=== PATIENT | male | born 1945 | race Caucasian/White ===

== ENCOUNTER 2018-11-26 22:31 | Emergency (ER) | payer MEDICARE, OTHER ==
--- NOTE | 2018-11-26 22:35 | ERPHSYRPT ---
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 no nasal trauma. pt is on asa and plavix. no new dosing. attempted nasal clip and ice pack to nose. primarily coming out of right side. pt denies cp, denies soa and denies abd pain. Timing/Duration: abrupt onset, this evening Severity: moderate ENT Location: nose Prearrival Treatment: squeezing nostrils Modifying Factors: Improves With: nothing Associated Symptoms: denies symptoms Allergies/Adverse Reactions: Penicillins Allergy (Verified 11/26/18 22:41) Sulfa (Sulfonamide Antibiotics) Allergy (Verified 11/26/18 22:41) Home Medications: Aspirin 81 gm Chew [Baby Aspirin 81 mg Chew] 1 tab PO BID 11/26/18 [ History] Metoprolol Tartrate 25 mg [Lopressor 25MG Tab] 0.5 tab PO BID 11/26/18 [ History] Pravastatin Sodium [Pravachol] 80 mg PO HS 11/26/18 [History] Trazodone HCl 50 mg [Desyrel 50 mg] 50 mg PO HS 11/26/18 [History] - Review of Systems Constitutional: No Symptoms Eyes: No Symptoms Ears, Nose, & Throat: Epistaxis (right side) Respiratory: No Symptoms Cardiac: No Symptoms Abdominal/Gastrointestinal: No Symptoms Genitourinary Symptoms: No Symptoms Musculoskeletal: No Symptoms Skin: No Symptoms Neurological: No Symptoms Psychological: No Symptoms Endocrine: No Symptoms Hematologic/Lymphatic: No Symptoms Immunological/Allergic: No Symptoms All Other Systems: Reviewed and Negative - Past Medical History Neurological History: No Pertinent History ENT History: No Pertinent History Cardiac History: Coronary Artery Disease Respiratory History: No Pertinent History Endocrine Medical History: No Pertinent History Musculoskeletal History: No Pertinent History GI Medical History: No Pertinent History History: No Pertinent History Psycho-Social History: No Pertinent History Male Reproductive Disorders: No Pertinent History - Past Surgical History Neuro Surgical History: No Pertinent History Cardiac: No Pertinent History Respiratory: No Pertinent History Gastrointestinal: No Pertinent History Genitourinary: No Pertinent History Musculoskeletal: No Pertinent History Male Surgical History: No Pertinent History - Nursing Vital Signs Nursing Vital Signs: Initial Vital Signs Pulse Rate 60 11/26/18 22:42 Respiratory Rate 18 11/26/18 22:42 Blood Pressure 175/90 11/26/18 22:42 O2 Sat by Pulse Oximetry 97 11/26/18 22:42 Pain Scale Pain Intensity 0 - Physical Exam General Appearance: mild distress, alert, anxiety Eye Exam: bilateral eye: normal inspection, PERRL, EOMI Ear Exam: bilateral ear: auricle normal, canal normal, TM normal Nasal Exam: active bleeding (slow right side. posterior. not anterior. no visible site. 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 as tested Skin Exam: normal color, warm, dry SpO2 Interpretation: normal O2 Delivery: Room Air Ordered Tests: Active Orders 24 hr Category Date Time Status CBC W DIFF Stat Lab 11/26/18 23:48 Completed PROTIME WITH INR Stat Lab 11/26/18 23:48 Completed Medication Summary Discontinued Medications Generic Name Dose Route Start Last Admin Trade Name Freq PRN Reason Stop Dose Admin Azithromycin 500 mg 11/27/18 00:19 Zithromax 250 Mg Tablet PO 11/27/18 00:20 STAT ONE Phenylephrine HCl Confirm 11/26/18 22:58 Neosynephrine 0.5% Nasal Kenn[place]/Drops Administered 11/26/18 22:59 Dose 15 ml .ROUTE .ST-MED ONE Lab/Rad Data: Laboratory Result Diagrams 11/26/18 23:48 Laboratory Results 11/26/18 11/26/18 Range/Units 23:48 23:48 WBC 7.2 (4.0-10.5) K/mm3 RBC 4.06 L (4.1-5.6) M/mm3 Hgb 13.4 (12.5-18.0) gm/dl Hct 41.2 L (42-50) % MCV 101.5 H (78-100) fl MCH 33.0 H (26-32) pg MCHC 32.5 (32-36) g/dl RDW 14.3 H (11.5-14.0) % Plt Count 175 (150-450) K/mm3 MPV 10.9 H (6-9.5) fl Gran % 60.1 (36.0-66.0) % Eos # (Auto) 0.19 (0-0.5) Absolute Lymphs (auto) 1.66 (1.0-4.6) Absolute Monos (auto) 1.02 (0.0-1.3) Lymphocytes % 22.9 L (24.0-44.0) % Monocytes % 14.1 H (0.0-12.0) % Eosinophils % 2.6 (0.00-5.0) % Basophils % 0.3 (0.0-0.4) % Absolute Granulocytes 4.35 (1.4-6.9) Basophils # 0.02 (0-0.4) PT 11.0 (8.83-12.87) SECONDS INR 0.97 (0.8-3.0) - Progress Progress: improved Progress Note: 11/27/18 00:13 it has been well over 1 hour after 2 sprays of neosynephrine into right nasal passage. there is improvement(slowed) but not stopped completely. discussed options with pt. he opts for placement of rhino rocket. 11/27/18 00:26 procedure note: pt had 7.5 ant/post rhino rocket advanced without difficulty posteriorly after small amt neosynephrine and saline mixture used to moisten the rocket. balloon inflated with air to pts comfort level. pt eliana well. no further bleeding noted. Counseled pt/family regarding: lab results, diagnosis, need for follow-up - Departure Departure Disposition: Home Clinical Impression: Epistaxis Condition: Stable Critical Care Time: No Referrals: [facility]OSP[facility] [Primary Care Provider] - Additional Instructions: stop your aspirin and your plavix. call your prescribing physician today and obtain further instructions. Call ENT (information provided) today for removal of nasal packing and reevaluation of your nosebleed. Prescriptions: Hydrocodone/APAP 5/325 [[place] 5/325 mg] 1 each PO Q8H PRN PRN #8 tablet MDD 3 PRN Reason: Pain Azithromycin 250 mg [Zithromax 250 MG TABLET] 250 mg PO DAILY #4 tablet
[2018-11-26] MEDS ORDERED: NEOSYNEPHRINE 0.5% NASAL SPRAY/DROPS ONE (22:58)
[2018-11-26 23:46] LABS: BASOPHIL % 0.3 % (0.0-0.4); Basophil (Absolute #) 0.02 (0-0.4); Eosinophil % 2.6 % (0.00-5.0); Eosinophil (Absolute #) 0.19 (0-0.5); Granulocyte Absolute (ANC) 4.35 (1.4-6.9); Granulocytes % 60.1 % (36.0-66.0); Hematocrit 41.2 % (42-50); Hemoglobin 13.4 gm/dl (12.5-18.0); Lymphocyte (Absolute #) 1.66 (1.0-4.6); Lymphocytes % 22.9 % (24.0-44.0); Mean Cell Volume 101.5 fl (78-100); Mean Corpuscular Hgb Concent. 32.5 g/dl (32-36); Mean Platelet Volume 10.9 fl (6-9.5); Monocytes % 14.1 % (0.0-12.0); Platelet Count 175 K/mm3 (150-450); Red Blood Count 4.06 M/mm3 (4.1-5.6); Red Cell Distribution Width 14.3 % (11.5-14.0); White Blood Count 7.2 K/mm3 (4.0-10.5)
[2018-11-26 23:52] LABS: INR 0.97 (0.8-3.0)
[2018-11-27] MEDS ORDERED: Zithromax 250 MG TABLET PO ONE (00:19)
[2018-11-27] MEDS ORDERED: NORCO 5/325 MG ONE (00:30)
[2018-11-27] MEDS ORDERED: Zithromax 250 MG TABLET ONE (00:30)
[2018-11-27] MEDS ORDERED: NORCO 5/325 MG PO ONE (00:31)
[2018-11-27 00:48] VITALS: BP 145/79; PULSE 62; O2SAT 96
== END 2018-11-27 00:55 | disposition home or self-care (01) ==
LOC: ED 22:31
DX: R04.0 Epistaxis (principal); R06.7 Sneezing; Z79.899 Other long term (current) drug therapy; I25.10 Atherosclerotic heart disease of native coronary artery without angina pectoris
CPT/HCPCS: 36415; 85025; 85610; 99283; A9270-GY

== ENCOUNTER 2019-03-19 09:53 | Emergency (ER) | payer OTHER, MEDICARE ==
--- NOTE | 2019-03-19 10:24 | ERPHSYRPT ---
- History of Present Illness Time Seen by Provider: 03/19/19 10:10 Source: patient, family Exam Limitations: no limitations Patient Subjective Stated Complaint: Stuffy, cough, fever, runny nose, sore throat Triage Nursing Assessment: Pt walked into the ER, c/o of runny nose, cough, dark old blood speckles in sputum, runny nose, feels like he has had a fever the past couple of days, hypertensive, afebrile, lungs clear, pulses normal, sore throat, denies pain except in throat Physician History: 73 y/o white male presents with cough, congestion and sore throat for a week and a half. pt denies fever. mucinex not helping. pt denies cp and soa. Timing/Duration: day(s) (10), intermittent, worse Cough Quality/Degree: dry cough, blood streaked sputum (pt on anticoag tx) Possible Cause: no prior episodes Modifying Factors: Improves With: coughing Associated Symptoms: cough, sore throat, other (chest congestion and sore throat ) Allergies/Adverse Reactions: Penicillins Allergy (Verified 03/19/19 10:11) Sulfa (Sulfonamide Antibiotics) Allergy (Verified 03/19/19 10:11) Home Medications: Aspirin 81 gm Chew [Baby Aspirin 81 mg Chew] 1 tab PO DAILY 11/26/18 [ History] Metoprolol Tartrate 25 mg [Lopressor 25MG Tab] 12.5 mg PO BID 11/26/18 [ History] Pravastatin Sodium [Pravachol] 80 mg PO HS 11/26/18 [History] Trazodone HCl 50 mg [Desyrel 50 mg] 50 mg PO HS 11/26/18 [History] Hx Influenza Vaccination/Date Given: No Hx Pneumococcal Vaccination/Date Given: No - Review of Systems Constitutional: No Symptoms Eyes: No Symptoms Ears, Nose, & Throat: Throat Pain Respiratory: Cough Cardiac: No Symptoms Abdominal/Gastrointestinal: No Symptoms Genitourinary Symptoms: No Symptoms Musculoskeletal: No Symptoms Skin: No Symptoms Neurological: No Symptoms Psychological: No Symptoms Endocrine: No Symptoms Hematologic/Lymphatic: No Symptoms Immunological/Allergic: No Symptoms All Other Systems: Reviewed and Negative - Past Medical History Pertinent Past Medical History: Yes Neurological History: No Pertinent History ENT History: No Pertinent History Cardiac History: Coronary Artery Disease Respiratory History: No Pertinent History Endocrine Medical History: No Pertinent History Musculoskeletal History: No Pertinent History GI Medical History: No Pertinent History History: No Pertinent History Psycho-Social History: No Pertinent History Male Reproductive Disorders: No Pertinent History - Past Surgical History Past Surgical History: Yes Neuro Surgical History: No Pertinent History Cardiac: No Pertinent History Respiratory: No Pertinent History Gastrointestinal: No Pertinent History Genitourinary: No Pertinent History Musculoskeletal: No Pertinent History Male Surgical History: No Pertinent History Other Surgical History: 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 and Open heart on May 29 2018 - Social History Smoking Status: Former smoker How long have you smoked: years Exposure to second hand smoke: No (not often) Drug Use: none Patient Lives Alone: No - Nursing Vital Signs Nursing Vital Signs: Initial Vital Signs Temperature 97.9 F 03/19/19 09:59 Pulse Rate 62 03/19/19 09:59 Blood Pressure 150/82 03/19/19 09:59 O2 Sat by Pulse Oximetry 98 03/19/19 09:59 Pain Scale Pain Intensity 0 - Physical Exam General Appearance: no apparent distress, alert Eye Exam: PERRL/EOMI, eyes nml inspection Ears, Nose, Throat Exam: normal ENT inspection, moist mucous membranes Neck Exam: normal inspection, non-tender, supple, full range of motion Respiratory Exam: normal breath sounds, lungs clear, airway intact, No chest tenderness, No respiratory distress Cardiovascular Exam: regular rate/rhythm, normal heart sounds, normal peripheral pulses Gastrointestinal/Abdomen Exam: soft, normal bowel sounds, No tenderness Rectal Exam: not done Back Exam: normal inspection, normal range of motion, No CVA tenderness, No vertebral tenderness Extremity Exam: normal inspection, normal range of motion, pelvis stable Neurologic Exam: alert, oriented x 3, cooperative, 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 teacher II-XII nml as tested, normal mood/affect, nml cerebellar function, nml station & gait Skin Exam: normal color, warm, dry Lymphatic Exam: No adenopathy SpO2 Interpretation: normal SpO2: 98 O2 Delivery: Room Air - Course Nursing assessment & vital signs reviewed: Yes Ordered Tests: Medication Summary Discontinued Medications Generic Name Dose Route Start Last Admin Trade Name Freq PRN Reason Stop Dose Admin Ceftriaxone Sodium 1,000 mg 03/19/19 10:35 Rocephin 1000 Mg Inj IM 03/19/19 10:36 STAT ONE Methylprednisolone Sodium Succinate 125 mg 03/19/19 10:34 Solu-Medrol 125 Mg IM 03/19/19 10:35 STAT ONE - Progress Progress: unchanged Air Movement: good Progress Note: 03/19/19 10:45 pt has taken keflex in past without problems Blood Culture(s) Obtained: No Antibiotics given: Yes Counseled pt/family regarding: diagnosis, need for follow-up - Departure Departure Disposition: Home Clinical Impression: Bronchitis Condition: Stable Critical Care Time: No Referrals: [facility] [Primary Care Provider] - Additional Instructions: drink plenty of fluids. avoid exposure to smoke of any kind. follow up with primary doctor for further management Prescriptions: Azithromycin 250 mg [Zithromax 250 MG TABLET] 250 mg PO ZPACK #6 tablet Hydrocodone Bit/Acetaminophen [Hydrocodone-Acetaminophen Soln] 10 ml PO Q6H # 120 ml Prednisone 10 mg [Deltasone 10 mg] 10 mg PO TID #12 tablet
[2019-03-19] MEDS ORDERED: solu-MEDROL 125 MG IM ONE (10:34)
[2019-03-19] MEDS ORDERED: Rocephin 1000 MG INJ IM ONE (10:35)
[2019-03-19] MEDS ORDERED: Rocephin 1000 MG INJ ONE (10:54)
[2019-03-19] MEDS ORDERED: solu-MEDROL 125 MG ONE (10:54)
[2019-03-19 11:18] VITALS: BP 142/85; PULSE 61; O2SAT 96
== END 2019-03-19 11:18 | disposition home or self-care (01) ==
LOC: ED 09:53
DX: J40 Bronchitis, not specified as acute or chronic (principal); R05 Cough; Z79.899 Other long term (current) drug therapy; I25.10 Atherosclerotic heart disease of native coronary artery without angina pectoris
CPT/HCPCS: 96372; 99284; J0696; J2930

== ENCOUNTER 2021-02-20 14:58 | Emergency (ER) | payer OTHER ==
[2021-02-20] MEDS ORDERED: Sodium Chloride 0.9% 1000 ML 1,000 ML ONE (15:26)
[2021-02-20] MEDS ORDERED: Zofran 4 MG/2 ML VIAL IV ONE (15:28)
--- NOTE | 2021-02-20 15:28 | ERPHSYRPT ---
- History of Present Illness Time Seen by Provider: 02/20/21 15:20 Source: patient Exam Limitations: no limitations Patient Subjective Stated Complaint: SOB Triage Nursing Assessment: Patient ambulated back to ED and transferred self to bed. Patient A+O X 3. Patient's skin flushed, warm and dry. Patient complains of fever, cough, SOB, vomiting, diarrhea, bodyaches, headaches and fatigue since yesterday. Patient's is Covid Positive and he was tested the same day Tuesday and was negative. Lungs clear a/p khushi. Patient complains of productive cough with scant amount of white clear amount of sputum. Physician History: This is a 75-year-old white male former smoker with a history of hypertension, elevated cholesterol, coronary artery disease, CABG and is [facility] whose primary care physician is in [facility]. This patient has had fever, cough, nausea, vomiting, diarrhea, body aches, headaches and fatigue that have been worsening over the last 2 days. Patient's tested positive for the COV ID-19 virus on Tuesday, February 16, 2021. He was tested on the same day and on that day his COVID-19 test was negative. Patient symptoms have been worsening. Patient did not receive a COVID-19 vaccination. Timing/Duration: day(s) (2) Severity of Dyspnea-Max: mild Severity of Dyspnea-Current: mild Possible Cause: no prior episodes Modifying Factors: Improves With: coughing Associated Symptoms: cough, weakness, No chest pain/discomfort Allergies/Adverse Reactions: Penicillins Allergy (Verified 02/20/21 15:02) Sulfa (Sulfonamide Antibiotics) Allergy (Verified 02/20/21 15:02) Home Medications: Aspirin 81 gm Chew [Baby Aspirin 81 mg Chew] 1 tab PO DAILY 11/26/18 [History] Metoprolol Tartrate 25 mg [Lopressor 25MG Tab] 12.5 mg PO BID 11/26/18 [History] Pravastatin Sodium [Pravachol] 80 mg PO HS 11/26/18 [History] Trazodone HCl 50 mg [Desyrel 50 mg] 50 mg PO HS 11/26/18 [History] Hx Influenza Vaccination/Date Given: No Hx Pneumococcal Vaccination/Date Given: No Immunizations Up to Date: Yes Travel Risk - International Travel Have you traveled outside of the country in past 3 weeks: No - Coronavirus Screening Are you exhibiting any of the following symptoms?: Yes Symptoms: Fever, Cough: New Onset, Shortness of Breath, Vomiting/Diarrhea, Loss of Taste or Smell, Headaches/Body Aches/Fatigue Close contact with a COVID-19 positive Pt in past 14-21 Days: Yes - Vaccine Status Have you recieved a Covid-19 vaccination: No - Review of Systems Constitutional: Fever, Weakness Eyes: No Symptoms Ears, Nose, & Throat: No Symptoms Respiratory: Cough, Dyspnea Cardiac: No Symptoms, No Chest Pain Abdominal/Gastrointestinal: Nausea, Vomiting, Diarrhea, No Abdominal Pain Genitourinary Symptoms: No Symptoms Musculoskeletal: Arthralgias, Myalgias Skin: No Symptoms Neurological: No Symptoms Psychological: No Symptoms Endocrine: No Symptoms Hematologic/Lymphatic: No Symptoms Immunological/Allergic: No Symptoms All Other Systems: Reviewed and Negative - Past Medical History Pertinent Past Medical History: Yes Neurological History: No Pertinent History ENT History: No Pertinent History Cardiac History: Coronary Artery Disease Respiratory History: No Pertinent History Endocrine Medical History: No Pertinent History Musculoskeletal History: No Pertinent History GI Medical History: No Pertinent History History: No Pertinent History Psycho-Social History: No Pertinent History Male Reproductive Disorders: No Pertinent History - Past Surgical History Past Surgical History: Yes Neuro Surgical History: No Pertinent History Cardiac: No Pertinent History Respiratory: No Pertinent History Gastrointestinal: No Pertinent History Genitourinary: No Pertinent History Musculoskeletal: No Pertinent History Male Surgical History: No Pertinent History Other Surgical History: 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 and Open heart on May 29 2018 - Social History Smoking Status: Former smoker How long have you smoked: years Exposure to second hand smoke: No (not often) Drug Use: none Patient Lives Alone: No - Nursing Vital Signs Nursing Vital Signs: Initial Vital Signs Temperature 99.0 F 02/20/21 15:02 Pulse Rate 100 H 02/20/21 15:02 Respiratory Rate 25 H 02/20/21 15:02 Blood Pressure 157/77 02/20/21 15:02 O2 Sat by Pulse Oximetry 97 02/20/21 15:02 Pain Scale Pain Intensity 0 - Physical Exam General Appearance: no apparent distress, alert, anxiety Eye Exam: PERRL/EOMI, eyes nml inspection Ears, Nose, Throat Exam: hearing grossly normal, normal ENT inspection, normal pharynx Neck Exam: normal inspection, non-tender, supple, full range of motion Respiratory Exam: normal breath sounds, lungs clear, airway intact, No chest tenderness, No respiratory distress Cardiovascular/Chest Exam: normal heart sounds, regular rate/rhythm Abdominal/Gastrointestinal Exam: soft, normal bowel sounds, No tenderness Rectal Exam: not done Extremity Exam: non-tender, normal range of motion, normal inspection, normal capillary refill, no calf tenderness, no pedal edema, pelvis stable Neurologic Exam: alert, oriented x 3, cooperative, supervisor lace tearing II-XII nml as tested, normal mood/affect, nml cerebellar function, nml station & gait, sensation nml Skin Exam: normal color, warm, dry Lymphatic Exam: No adenopathy SpO2 Interpretation: normal SpO2: 95 O2 Delivery: Room Air - Course Nursing assessment & vital signs reviewed: Yes EKG Interpreted by Me: RATE (102), Sinus Tach, NORMAL AXIS, NORMAL INTERVALS, NORMAL QRS, NORMAL ST-T, Other (No acute ischemic changes. No comparison EKG.) Ordered Tests: Active Orders 24 hr Category Date Time Status EKG-ER Only STAT Care 02/20/21 15:20 Active Isolation, Initiate & Maintain STAT Care 02/20/21 15:21 Active Pulse Oximetry (ED) STAT Care 02/20/21 15:20 Active CHEST 1 VIEW (PORTABLE) Stat Exams 02/20/21 15:40 Completed CHEST WITH CONTRAST [CT] Stat Exams 02/20/21 16:42 Completed BLOOD CULTURE Stat Lab 02/20/21 15:40 Received CBC W DIFF Stat Lab 02/20/21 15:20 Completed CMP Stat Lab 02/20/21 15:20 Completed D-DIMER QUANTITATIVE Stat Lab 02/20/21 15:20 Completed Ferritin Stat Lab 02/20/21 15:20 Completed INFLUENZA A+B ZENAIDA Stat Lab 02/20/21 15:40 Completed LDH-LACTATE DEHYDROGENASE Stat Lab 02/20/21 15:20 Completed Lactic Acid Stat Lab 02/20/21 15:20 Completed [place] Screen Stat Lab 02/20/21 15:20 Completed TROPONIN Q3H Lab 02/20/21 15:20 Completed TROPONIN Q3H Lab 02/20/21 18:29 Completed TROPONIN Q3H Lab 02/20/21 21:30 Ordered TROPONIN Q3H Lab 02/21/21 00:30 Ordered TROPONIN Q3H Lab 02/21/21 03:30 Ordered Medication Summary Generic Name Dose Route Start Last Admin Trade Name Arielle PRN Reason Stop Dose Admin Sodium Chloride 1,000 mls @ 100 mls/hr 02/20/21 15:30 02/20/21 15:36 Sodium Chloride 0.9% 1000 Ml IV 03/22/21 15:29 100 mls/hr .Q10H NUZHAT Administration Discontinued Medications Generic Name Dose Route Start Last Admin Trade Name Arielle PRN Reason Stop Dose Admin Hydrocodone Bitart/Acetaminophen 10 ml 02/20/21 15:29 02/20/21 15:37 Hydrocodone-Acetamin 2.5-108/5 Ml Solution PO 02/20/21 15:30 10 ml STAT STA Administration Hydrocodone Bitart/Acetaminophen Confirm 02/20/21 15:35 Hydrocodone-Acetamin 2.5-108/5 Ml Solution Administered 02/20/21 15:36 Dose 10 ml .ROUTE .STK-MED ONE Dexamethasone Sodium Phosphate 4 mg 02/20/21 15:29 02/20/21 15:37 Decadron 4 Mg Inj IV 02/20/21 15:30 4 mg STAT ONE Administration Dexamethasone Sodium Phosphate Confirm 02/20/21 15:35 Decadron 4 Mg Inj Administered 02/20/21 15:36 Dose 4 mg .ROUTE .STK-MED ONE Sodium Chloride 500 mls @ 500 mls/hr 02/20/21 17:39 02/20/21 18:53 Sodium Chloride 0.9% 500 Ml IV 02/20/21 18:38 Infused .Q1H ONE Infusion Sodium Chloride Confirm 02/20/21 17:44 Sodium Chloride 0.9% 500 Ml Administered 02/20/21 17:45 Dose 500 mls @ ud IV .STK-MED ONE Ondansetron HCl 4 mg 02/20/21 15:28 02/20/21 15:37 Zofran 4 Mg/2 Ml Vial IV 02/20/21 15:29 4 mg STAT ONE Administration Ondansetron HCl Confirm 02/20/21 15:35 Zofran 4 Mg/2 Ml Vial Administered 02/20/21 15:36 Dose 4 mg .ROUTE .STK-MED ONE Lab/Rad Data: Laboratory Result Diagrams 02/20/21 15:20 02/20/21 15:20 Laboratory Results 02/20/21 02/20/21 02/20/21 Range/Units 18:29 15:40 15:20 WBC (4.0-10.5) K/mm3 RBC (4.1-5.6) M/mm3 Hgb (12.5-18.0) gm/dl Hct (42-50) % MCV (78-100) fl MCH (26-32) pg MCHC (32-36) g/dl RDW (11.5-14.0) % Plt Count (150-450) K/mm3 MPV (7.5-11.0) fl Gran % (36.0-66.0) % Eos # (Auto) (0-0.5) Absolute Lymphs (auto) (1.0-4.6) Absolute Monos (auto) (0.0-1.3) Lymphocytes % (24.0-44.0) % Monocytes % (0.0-12.0) % Eosinophils % (0.00-5.0) % Basophils % (0.0-0.4) % Absolute Granulocytes (1.4-6.9) Basophils # (0-0.4) D-Dimer (215-500) ng/mL Sodium (137-145) mmol/L Potassium (3.5-5.1) mmol/L Chloride (98-107) mmol/L Carbon Dioxide (22-30) mmol/L Anion Gap (5-15) MEQ/L BUN (9-20) mg/dL Creatinine (0.66-1.25) mg/dL Estimated GFR ML/MIN Glucose (74-106) mg/dL Lactic Acid (0.4-2.0) Calcium (8.4-10.2) mg/dL Ferritin (17.9-464) ng/mL Total Bilirubin (0.2-1.3) mg/dL AST (17-59) U/L ALT (0-50) U/L Alkaline Phosphatase (38-126) U/L Lactate Dehydrogenase (120-246) U/L Troponin I 0.023 (0.000-0.034) ng/mL Serum Total Protein (6.3-8.2) g/dL Albumin (3.5-5.0) g/dL Monoscreen NEGATIVE (Negative) Influenza Type A Ag NEGATIVE (NEGATIVE) Influenza Type B Ag NEGATIVE (NEGATIVE) 02/20/21 02/20/21 02/20/21 Range/Units 15:20 15:20 15:20 WBC (4.0-10.5) K/mm3 RBC (4.1-5.6) M/mm3 Hgb (12.5-18.0) gm/dl Hct (42-50) % MCV (78-100) fl MCH (26-32) pg MCHC (32-36) g/dl RDW (11.5-14.0) % Plt Count (150-450) K/mm3 MPV (7.5-11.0) fl Gran % (36.0-66.0) % Eos # (Auto) (0-0.5) Absolute Lymphs (auto) (1.0-4.6) Absolute Monos (auto) (0.0-1.3) Lymphocytes % (24.0-44.0) % Monocytes % (0.0-12.0) % Eosinophils % (0.00-5.0) % Basophils % (0.0-0.4) % Absolute Granulocytes (1.4-6.9) Basophils # (0-0.4) D-Dimer 2316 H* (215-500) ng/mL Sodium (137-145) mmol/L Potassium (3.5-5.1) mmol/L Chloride (98-107) mmol/L Carbon Dioxide (22-30) mmol/L Anion Gap (5-15) MEQ/L BUN (9-20) mg/dL Creatinine (0.66-1.25) mg/dL Estimated GFR ML/MIN Glucose (74-106) mg/dL Lactic Acid (0.4-2.0) Calcium (8.4-10.2) mg/dL Ferritin 164 (17.9-464) ng/mL Total Bilirubin (0.2-1.3) mg/dL AST (17-59) U/L ALT (0-50) U/L Alkaline Phosphatase (38-126) U/L Lactate Dehydrogenase (120-246) U/L Troponin I 0.022 (0.000-0.034) ng/mL Serum Total Protein (6.3-8.2) g/dL Albumin (3.5-5.0) g/dL Monoscreen (Negative) Influenza Type A Ag (NEGATIVE) Influenza Type B Ag (NEGATIVE) 02/20/21 02/20/21 02/20/21 Range/Units 15:20 15:20 15:20 WBC 7.3 (4.0-10.5) K/mm3 RBC 4.39 (4.1-5.6) M/mm3 Hgb 14.4 (12.5-18.0) gm/dl Hct 42.9 (42-50) % MCV 97.7 (78-100) fl MCH 32.8 H (26-32) pg MCHC 33.6 (32-36) g/dl RDW 12.7 (11.5-14.0) % Plt Count 172 (150-450) K/mm3 MPV 10.6 (7.5-11.0) fl Gran % 90.7 H (36.0-66.0) % Eos # (Auto) 0.01 (0-0.5) Absolute Lymphs (auto) 0.24 L (1.0-4.6) Absolute Monos (auto) 0.42 (0.0-1.3) Lymphocytes % 3.3 L (24.0-44.0) % Monocytes % 5.8 (0.0-12.0) % Eosinophils % 0.1 (0.00-5.0) % Basophils % 0.1 (0.0-0.4) % Absolute Granulocytes 6.59 (1.4-6.9) Basophils # 0.01 (0-0.4) D-Dimer (215-500) ng/mL Sodium 135 L (137-145) mmol/L Potassium 3.8 (3.5-5.1) mmol/L Chloride 103 (98-107) mmol/L Carbon Dioxide 21 L (22-30) mmol/L Anion Gap 14.6 (5-15) MEQ/L BUN 12 (9-20) mg/dL Creatinine 1.07 (0.66-1.25) mg/dL Estimated GFR > 60.0 ML/MIN Glucose 118 H (74-106) mg/dL Lactic Acid 1.5 (0.4-2.0) Calcium 9.3 (8.4-10.2) mg/dL Ferritin (17.9-464) ng/mL Total Bilirubin 0.90 (0.2-1.3) mg/dL AST 23 (17-59) U/L ALT 14 (0-50) U/L Alkaline Phosphatase 106 (38-126) U/L Lactate Dehydrogenase 216 (120-246) U/L Troponin I (0.000-0.034) ng/mL Serum Total Protein 7.5 (6.3-8.2) g/dL Albumin 4.3 (3.5-5.0) g/dL Monoscreen (Negative) Influenza Type A Ag (NEGATIVE) Influenza Type B Ag (NEGATIVE) - Progress Progress: improved, re-examined Air Movement: good Progress Note: 02/20/21 17:41 Chest x-ray shows hazy bilateral mid to lower lung interstitial alveolar opacities without consolidation or large effusion. CAT scan of the chest with contrast shows no pulmonary embolus. There is diffuse bilateral peripheral ground glass opacities. 02/20/21 19:12 Medical decision making: This patient states he is feeling much better. He is not short of breath. He has no chest pain and he has had 2 normal troponin lev els. His nausea has resolved and he has tolerated clear liquids. The patient wants to go home. I think he is a reasonable candidate to go home. We will make sure that he has a outpatient Covid test performed before he is discharged. I will discharge him to home with Zofran, prednisone and hydrocodone elixir. He was told to follow-up with his primary care doctor on Tuesday for his COVID-19 results and to be referred to the outpatient COVID-19 clinic for infusion 02/20/21 19:14 Blood Culture(s) Obtained: Yes Antibiotics given: No Counseled pt/family regarding: lab results, diagnosis, need for follow-up, rad results - Departure Departure Disposition: Home Clinical Impression: Viral illness Condition: Stable Critical Care Time: No Referrals: HOSPITAL,'S [Primary Care Provider] - Additional Instructions: Drink plenty of clear liquids before advancing diet. Quarantine yourself until the results of your COVID-19 test returned. Call your primary care physician on 02/23/2021, for your COVID-19 test results. Make sure they refer you to the COVID-19 infusion clinic. Return to the emergency department if your symptoms worsen. Prescriptions: Ondansetron ODT 4 MG [Zofran Odt 4 mg] 4 mg PO Q6H PRN PRN #10 tablet PRN Reason: Vomiting Hydrocodone/Acetaminophen [Hydrocodone-Acetamn 7.5-325/15] 10 ml PO Q8H PRN PRN #120 ml MDD 30 ml PRN Reason: Cough Prednisone 10 mg [Deltasone 10 mg] 10 mg PO TID #12 tablet
[2021-02-20] MEDS ORDERED: HYDROCODONE-ACETAMIN 2.5-108/5 ML SOLUTION PO STA (15:29)
[2021-02-20] MEDS ORDERED: Decadron 4 MG INJ IV ONE (15:29)
[2021-02-20] MEDS ORDERED: Sodium Chloride 0.9% 1000 ML 1,000 ML IV SCH (15:30)
[2021-02-20 15:33] LABS: Absolute Neutrophil Ct (ANC) 6.59 (1.4-6.9); BASOPHIL % 0.1 % (0.0-0.4); Basophil (Absolute #) 0.01 (0-0.4); Eosinophil % 0.1 % (0.00-5.0); Eosinophil (Absolute #) 0.01 (0-0.5); Hematocrit 42.9 % (42-50); Hemoglobin 14.4 gm/dl (12.5-18.0); Lymphocyte (Absolute #) 0.24 (1.0-4.6); Lymphocytes % 3.3 % (24.0-44.0); Mean Cell Volume 97.7 fl (78-100); Mean Corpuscular Hemoglobin 32.8 pg (26-32); Mean Corpuscular Hgb Concent. 33.6 g/dl (32-36); Mean Platelet Volume 10.6 fl (7.5-11.0); Monocyte (Absolute #) 0.42 (0.0-1.3); Monocytes % 5.8 % (0.0-12.0); Neutrophil % 90.7 % (36.0-66.0); Platelet Count 172 K/mm3 (150-450); Red Blood Count 4.39 M/mm3 (4.1-5.6); Red Cell Distribution Width 12.7 % (11.5-14.0); White Blood Count 7.3 K/mm3 (4.0-10.5)
[2021-02-20] MEDS ORDERED: Decadron 4 MG INJ ONE (15:35)
[2021-02-20] MEDS ORDERED: Zofran 4 MG/2 ML VIAL ONE (15:35)
[2021-02-20] MEDS ORDERED: HYDROCODONE-ACETAMIN 2.5-108/5 ML SOLUTION ONE (15:35)
[2021-02-20 15:38] LABS: ALBUMIN 4.3 g/dL (3.5-5.0); ALKALINE PHOSPHATASE 106 U/L (38-126); ANION GAP 14.6 MEQ/L (5-15); BLOOD UREA NITROGEN 12 mg/dL (9-20); CHLORIDE 103 mmol/L (98-107); Calcium 9.3 mg/dL (8.4-10.2); Carbon Dioxide 21 mmol/L (22-30); Creatinine 1 1.07 mg/dL (0.66-1.25); EST GLOMERULAR FILTRATION RATE > 60.0 ML/MIN; Glucose 118 mg/dL (74-106); LDH-LACTATE DEHYDROGENASE 216 U/L (120-246); Potassium 3.8 mmol/L (3.5-5.1); SGOT/AST 23 U/L (17-59); SGPT/ALT 14 U/L (0-50); SODIUM 135 mmol/L (137-145); Total Protein 7.5 g/dL (6.3-8.2)
[2021-02-20 16:17] LABS: INFLUENZA A NEGATIVE (NEGATIVE); INFLUENZA B NEGATIVE (NEGATIVE)
--- NOTE | 2021-02-20 16:28 | XRAY ---
Indication: Short of breath. Comparison: None Portable chest demonstrates hazy bilateral mid to lower lung interstitial alveolar opacities without consolidation/large effusion. Tiny right base calcified granuloma. Heart not enlarged with CABG surgery. Bony thorax intact.
--- NOTE | 2021-02-20 17:04 | XRAY ---
Indication: Short of breath. Elevated d-dimer. Multiple contiguous axial images obtained through the chest using 80 cc Isovue 370 contrast and PE protocol. Comparison: None There is good opacification of the pulmonary arteries to include the lobar and segmental branches. No pulmonary embolus. Heart not enlarged with CABG and aortic valve replacement surgery. Aorta is mildly arteriosclerotic without aneurysm/dissection. Small right hilar calcified node. No pathologic mediastinal/hilar lymphadenopathy. Small hiatal hernia. Lungs demonstrates mild diffuse bilateral peripheral groundglass opacities and mild bilateral dependent atelectasis. Elsewhere moderate centrilobular pulmonary emphysema, 5 mm right base calcified granuloma, and 5 mm right minor fissure noncalcified nodule. No effusion. Bony thorax intact with mild degenerative changes throughout the spine and sternotomy wires. Limited upper abdomen demonstrates nonobstructing 4 mm left renal calculus. Impression: 1. Negative pulmonary embolus. 2. Diffuse bilateral peripheral ground glass opacities. Commonly reported imaging features of Covid 19 pneumonia are present. Other processes such as influenza pneumonia and organizing pneumonia, as can be seen with drug toxicity and connective tissue disease, can cause a similar imaging pattern. 3. Incidental pulmonary emphysema, right lung calcified/noncalcified granulomas, chronic bony findings, and nonobstructing left renal micro-calculus.
[2021-02-20] MEDS ORDERED: Sodium Chloride 0.9% 500 ML 500 ML IV ONE ×2 (17:39→17:44)
[2021-02-20 19:17] VITALS: O2SAT 95
[2021-02-20 20:26] VITALS: BP 117/79; PULSE 67
== END 2021-02-20 19:48 | disposition home or self-care (01) ==
LOC: ED 14:58
DX: B34.9 Viral infection, unspecified (principal); R50.9 Fever, unspecified; R05 Cough; R06.02 Shortness of breath; R11.2 Nausea with vomiting, unspecified; R19.7 Diarrhea, unspecified; R53.83 Other fatigue; R51.9 Headache, unspecified; I10 Essential (primary) hypertension; E78.5 Hyperlipidemia, unspecified; I25.10 Atherosclerotic heart disease of native coronary artery without angina pectoris; Z79.899 Other long term (current) drug therapy; Z20.822 Contact with and (suspected) exposure to COVID-19
CPT/HCPCS: 36000; 36415; 71045; 71260; 80053; 82728; 83605; 83615; 84484; 85025; 85379; 86308; 87040; 87400; 93005; 94760; 96360; 96374; 96375; 99285; U0003; J1100; J2405; A9270-GY

== ENCOUNTER 2021-02-23 13:11 | Emergency (ER) | payer OTHER ==
[2021-02-23] MEDS ORDERED: DECADRON 10MG INJ. IV ONE ×2 (13:19→14:29)
[2021-02-23] MEDS ORDERED: DECADRON 10MG INJ. ONE (13:20)
--- NOTE | 2021-02-23 13:31 | ERPHSYRPT ---
- History of Present Illness Source: patient Exam Limitations: no limitations Patient Subjective Stated Complaint: pt here for sob worse today, was covid positive on tuesday, Triage Nursing Assessment: pt alert, resp labored, skin w/d/p. face mask in place, Physician History: 75 yo wm w +CV test 02/20/21 presents w 1 wk h/o cough/myalgias/N/diarr hea/fever/dyspnea. Pt denies CP. Timing/Duration: other (1wk) Severity of Dyspnea-Max: moderate Severity of Dyspnea-Current: moderate Possible Cause: no prior episodes Modifying Factors: Improves With: coughing Associated Symptoms: anxiety, cough, fever, No chest pain/discomfort, No edema, No insomnia, No loss of appetite, No lightheadedness, No wheezing, No weakness, No ankle swelling, No chills, No hemoptysis, No calf pain, No dizziness, No hea viness, No heart racing, No lightheadedness, No leg swelling, No muscle spasms feet, No muscle spasms hands, No painful breathing, No productive cough, No sweating, No tightness, No tingling face Allergies/Adverse Reactions: Penicillins Allergy (Verified 02/23/21 13:16) Sulfa (Sulfonamide Antibiotics) Allergy (Verified 02/23/21 13:16) Home Medications: Aspirin 81 gm Chew [Baby Aspirin 81 mg Chew] 1 tab PO DAILY 11/26/18 [History] Metoprolol Tartrate 25 mg [Lopressor 25MG Tab] 12.5 mg PO BID 11/26/18 [History] Pravastatin Sodium [Pravachol] 80 mg PO HS 11/26/18 [History] Trazodone HCl 50 mg [Desyrel 50 mg] 50 mg PO HS 11/26/18 [History] Hx Influenza Vaccination/Date Given: No Hx Pneumococcal Vaccination/Date Given: No Immunizations Up to Date: Yes Travel Risk - International Travel Have you traveled outside of the country in past 3 weeks: No - Coronavirus Screening Are you exhibiting any of the following symptoms?: Yes Symptoms: Fever, Cough: New Onset, Shortness of Breath Close contact with a COVID-19 positive Pt in past 14-21 Days: Yes - Vaccine Status Have you recieved a Covid-19 vaccination: No - Review of Systems Constitutional: No Symptoms, Fever, Chills Eyes: No Symptoms Ears, Nose, & Throat: No Symptoms Respiratory: No Symptoms, Cough, Dyspnea Cardiac: No Symptoms Abdominal/Gastrointestinal: Diarrhea, No Abdominal Pain, No Nausea, No Vomiting, No Constipation, No Hematemesis, No Hematochezia, No Melena, No Dysphagia, No Appetite Changes Genitourinary Symptoms: No Symptoms Musculoskeletal: No Symptoms, Myalgias Skin: No Symptoms Neurological: No Symptoms, Headache Psychological: No Symptoms Endocrine: No Symptoms Hematologic/Lymphatic: No Symptoms Immunological/Allergic: No Symptoms - Past Medical History Pertinent Past Medical History: Yes Neurological History: No Pertinent History ENT History: No Pertinent History Cardiac History: Coronary Artery Disease Respiratory History: No Pertinent History Endocrine Medical History: No Pertinent History Musculoskeletal History: No Pertinent History GI Medical History: No Pertinent History History: No Pertinent History Psycho-Social History: No Pertinent History Male Reproductive Disorders: No Pertinent History - Past Surgical History Past Surgical History: Yes Neuro Surgical History: No Pertinent History Cardiac: No Pertinent History Respiratory: No Pertinent History Gastrointestinal: No Pertinent History Genitourinary: No Pertinent History Musculoskeletal: No Pertinent History Male Surgical History: No Pertinent History Other Surgical History: 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 and Open heart on May 29 2018 - Social History Smoking Status: Former smoker How long have you smoked: years Exposure to second hand smoke: No (not often) Drug Use: none Patient Lives Alone: No Significant Family History: no pertinent family hx - Nursing Vital Signs Nursing Vital Signs: Initial Vital Signs Temperature 99.2 F 02/23/21 13:14 Pulse Rate 84 02/23/21 13:14 Respiratory Rate 22 02/23/21 13:14 Blood Pressure 129/70 02/23/21 13:14 O2 Sat by Pulse Oximetry 86 L 02/23/21 13:14 Pain Scale Pain Intensity 0 - Physical Exam General Appearance: mild distress Eye Exam: PERRL/EOMI, eyes nml inspection Ears, Nose, Throat Exam: hearing grossly normal, normal ENT inspection, normal pharynx Neck Exam: normal inspection, non-tender Respiratory Exam: respiratory distress (Mild-Mod), airway intact, crackles/rales (B bases) Cardiovascular/Chest Exam: regular rate/rhythm, murmur (2/6 PERNELL) Abdominal/Gastrointestinal Exam: soft, normal bowel sounds, No tenderness Extremity Exam: non-tender, normal range of motion, normal inspection, normal capillary refill Peripheral Pulses Exam: carotid (R): 2+, carotid (L): 2+ Neurologic Exam: alert, oriented x 3, cooperative, job press feeder II-XII nml as tested, normal mood/affect, nml station & gait, sensation nml, No motor deficits, No sensory deficit Skin Exam: normal color, warm Lymphatic Exam: No adenopathy SpO2 Interpretation: hypoxic SpO2: 86 O2 Delivery: Room Air - Course Nursing assessment & vital signs reviewed: Yes EKG Interpreted by Me: RATE (NSR/R81/Normal Qt-QTc/PVC's/Non-specific ST abnormality) - Radiology Exams Chest X-ray Interpretation: Discussed w/ radiologist (Worsening interstitual alveolar opacities/Sternal wires) Ordered Tests: Active Orders 24 hr Category Date Time Status Bedrest ROUTINE Activity 02/23/21 14:25 Completed Code Status Order ROUTINE Care 02/23/21 14:24 Completed EKG-ER Only STAT Care 02/23/21 13:15 Completed IV Insertion STAT Care 02/23/21 13:15 Completed Intake and Output Q12H Care 02/23/21 14:24 Completed Isolation, Initiate & Maintain Q6H Care 02/23/21 14:[address] in Observation ROUTINE Care 02/23/21 14:24 Completed Telemetry q4h Care 02/23/21 14:24 Completed Vital Signs Q4H Care 02/23/21 14:24 Completed Low Fat Diet 02/23/21 Dinner Completed CHEST 1 VIEW (PORTABLE) Stat Exams 02/23/21 13:15 Completed CBC W DIFF Stat Lab 02/23/21 13:18 Completed CMP Stat Lab 02/23/21 13:18 Completed D-DIMER QUANTITATIVE Stat Lab 02/23/21 13:18 Completed Lactic Acid Stat Lab 02/23/21 13:15 Completed Lactic Acid Stat Lab 02/23/21 15:40 Completed TROPONIN Q3H Lab 02/23/21 13:18 Completed TROPONIN Q3H Lab 02/23/21 16:15 Completed Respiratory Therapy Consult ROUTINE RT 02/23/21 14:24 Completed Transfer Order Routine Transfer 02/23/21 Ordered Medication Summary Discontinued Medications Generic Name Dose Route Start Last Admin Trade Name Freq PRN Reason Stop Dose Admin Dexamethasone Sodium Phosphate 10 mg 02/23/21 13:19 02/23/21 13:23 Decadron 10mg Inj. IV 02/23/21 13:20 10 mg STAT ONE Administration Dexamethasone Sodium Phosphate Confirm 02/23/21 13:20 Decadron 10mg Inj. Administered 02/23/21 13:21 Dose 10 mg .ROUTE .STK-MED ONE Dexamethasone Sodium Phosphate 6 mg 02/23/21 14:29 Decadron 10mg Inj. IV 02/23/21 14:30 STAT ONE Enoxaparin Sodium 90 mg 02/23/21 14:30 Enoxaparin Sodium 1 mg/kg (90 mg) 03/25/21 14:29 SQ Q12H NUZHAT Enoxaparin Sodium 80 mg 02/23/21 16:12 02/23/21 16:50 Enoxaparin Sodium SQ 02/23/21 16:13 80 mg STAT ONE Administration Enoxaparin Sodium Confirm 02/23/21 16:49 Enoxaparin Sodium Administered 02/23/21 16:50 Dose 80 mg SQ .STK-MED ONE Famotidine 20 mg 02/23/21 22:00 Pepcid 20 Mg Vial IV 03/25/21 21:59 Q12HT NUZHAT Sodium Chloride 1,000 mls @ 0 mls/hr 02/23/21 14:30 Sodium Chloride 0.9% 1000 Ml IV 03/25/21 14:29 .Q0M NUZHAT KVO Remdesivir 100 mg/ Sodium 100 mls @ 100 mls/hr 02/24/21 14:28 Chloride IV 02/27/21 15:27 Q24H NUZHAT Remdesivir 200 mg/ Sodium 250 mls @ 125 mls/hr 02/23/21 14:29 Chloride IV 02/23/21 16:28 ONCE ONE Ondansetron HCl 4 mg 02/23/21 14:24 Zofran 4 Mg/2 Ml Vial IV 03/25/21 14:23 Q6H PRN PRN NAUSEA/VOMITING Lab/Rad Data: Laboratory Result Diagrams 02/23/21 13:18 02/23/21 13:18 Laboratory Results 02/23/21 02/23/21 02/23/21 Range/Units 16:15 15:40 13:18 WBC (4.0-10.5) K/mm3 RBC (4.1-5.6) M/mm3 Hgb (12.5-18.0) gm/dl Hct (42-50) % MCV (78-100) fl MCH (26-32) pg MCHC (32-36) g/dl RDW (11.5-14.0) % Plt Count (150-450) K/mm3 MPV (7.5-11.0) fl Gran % (36.0-66.0) % Eos # (Auto) (0-0.5) Absolute Lymphs (auto) (1.0-4.6) Absolute Monos (auto) (0.0-1.3) Lymphocytes % (24.0-44.0) % Monocytes % (0.0-12.0) % Eosinophils % (0.00-5.0) % Basophils % (0.0-0.4) % Absolute Granulocytes (1.4-6.9) Basophils # (0-0.4) D-Dimer 2483 H* (215-500) ng/mL Sodium (137-145) mmol/L Potassium (3.5-5.1) mmol/L Chloride (98-107) mmol/L Carbon Dioxide (22-30) mmol/L Anion Gap (5-15) MEQ/L BUN (9-20) mg/dL Creatinine (0.66-1.25) mg/dL Estimated GFR ML/MIN Glucose (74-106) mg/dL Lactic Acid 1.3 (0.4-2.0) Calcium (8.4-10.2) mg/dL Total Bilirubin (0.2-1.3) mg/dL AST (17-59) U/L ALT (0-50) U/L Alkaline Phosphatase (38-126) U/L Troponin I 0.041 H* (0.000-0.034) ng/mL Serum Total Protein (6.3-8.2) g/dL Albumin (3.5-5.0) g/dL Slides for Path Review 02/23/21 02/23/21 02/23/21 Range/Units 13:18 13:18 13:18 WBC 12.0 H (4.0-10.5) K/mm3 RBC 4.24 (4.1-5.6) M/mm3 Hgb 13.8 (12.5-18.0) gm/dl Hct 41.7 L (42-50) % MCV 98.3 (78-100) fl MCH 32.5 H (26-32) pg MCHC 33.1 (32-36) g/dl RDW 12.7 (11.5-14.0) % Plt Count 218 (150-450) K/mm3 MPV 10.4 (7.5-11.0) fl Gran % 89.4 H (36.0-66.0) % Eos # (Auto) 0.01 (0-0.5) Absolute Lymphs (auto) 0.44 L (1.0-4.6) Absolute Monos (auto) 0.80 (0.0-1.3) Lymphocytes % 3.7 L (24.0-44.0) % Monocytes % 6.7 (0.0-12.0) % Eosinophils % 0.1 (0.00-5.0) % Basophils % 0.1 (0.0-0.4) % Absolute Granulocytes 10.75 H (1.4-6.9) Basophils # 0.01 (0-0.4) D-Dimer (215-500) ng/mL Sodium 137 (137-145) mmol/L Potassium 3.9 (3.5-5.1) mmol/L Chloride 103 (98-107) mmol/L Carbon Dioxide 23 (22-30) mmol/L Anion Gap 14.3 (5-15) MEQ/L BUN 19 (9-20) mg/dL Creatinine 0.93 (0.66-1.25) mg/dL Estimated GFR > 60.0 ML/MIN Glucose 85 (74-106) mg/dL Lactic Acid (0.4-2.0) Calcium 9.0 (8.4-10.2) mg/dL Total Bilirubin 0.60 (0.2-1.3) mg/dL AST 26 (17-59) U/L ALT 17 (0-50) U/L Alkaline Phosphatase 95 (38-126) U/L Troponin I 0.015 (0.000-0.034) ng/mL Serum Total Protein 6.3 (6.3-8.2) g/dL Albumin 3.5 (3.5-5.0) g/dL Slides for Path Review YES 02/23/21 Range/Units 13:15 WBC (4.0-10.5) K/mm3 RBC (4.1-5.6) M/mm3 Hgb (12.5-18.0) gm/dl Hct (42-50) % MCV (78-100) fl MCH (26-32) pg MCHC (32-36) g/dl RDW (11.5-14.0) % Plt Count (150-450) K/mm3 MPV (7.5-11.0) fl Gran % (36.0-66.0) % Eos # (Auto) (0-0.5) Absolute Lymphs (auto) (1.0-4.6) Absolute Monos (auto) (0.0-1.3) Lymphocytes % (24.0-44.0) % Monocytes % (0.0-12.0) % Eosinophils % (0.00-5.0) % Basophils % (0.0-0.4) % Absolute Granulocytes (1.4-6.9) Basophils # (0-0.4) D-Dimer (215-500) ng/mL Sodium (137-145) mmol/L Potassium (3.5-5.1) mmol/L Chloride (98-107) mmol/L Carbon Dioxide (22-30) mmol/L Anion Gap (5-15) MEQ/L BUN (9-20) mg/dL Creatinine (0.66-1.25) mg/dL Estimated GFR ML/MIN Glucose (74-106) mg/dL Lactic Acid 2.1 H (0.4-2.0) Calcium (8.4-10.2) mg/dL Total Bilirubin (0.2-1.3) mg/dL AST (17-59) U/L ALT (0-50) U/L Alkaline Phosphatase (38-126) U/L Troponin I (0.000-0.034) ng/mL Serum Total Protein (6.3-8.2) g/dL Albumin (3.5-5.0) g/dL Slides for Path Review - Progress Progress: improved Progress Note: 02/23/21 14:22 10mg IV Decadron Admit per Dr. Rob 02/23/21 16:13 [facility] later accepted pt(Dr[facility] Dodge) 80mg sq Lovenox per Dr. Dodge 02/23/21 20:41 80mg sq Lovenox Pt had mild elevation in troponin before transfer but was quite stable wo chest pain Pt stable when care assumed by ambulance service Discussed with DrYvette: Other (brennen) Counseled pt/family regarding: lab results, diagnosis, need for follow-up, rad results - Departure Departure Disposition: Transfer Clinical Impression: COVID-19 Condition: Stable Critical Care Time: Yes Critical Care Time(excluding separately billable procedures): Critical 30-74 mins Referrals: [facility],'[facility] [Primary Care Provider] -
[2021-02-23 13:33] LABS: Absolute Neutrophil Ct (ANC) 10.75 (1.4-6.9); BASOPHIL % 0.1 % (0.0-0.4); Basophil (Absolute #) 0.01 (0-0.4); Eosinophil % 0.1 % (0.00-5.0); Eosinophil (Absolute #) 0.01 (0-0.5); Hematocrit 41.7 % (42-50); Hemoglobin 13.8 gm/dl (12.5-18.0); Lymphocyte (Absolute #) 0.44 (1.0-4.6); Lymphocytes % 3.7 % (24.0-44.0); Mean Cell Volume 98.3 fl (78-100); Mean Corpuscular Hemoglobin 32.5 pg (26-32); Mean Corpuscular Hgb Concent. 33.1 g/dl (32-36); Mean Platelet Volume 10.4 fl (7.5-11.0); Monocytes % 6.7 % (0.0-12.0); Neutrophil % 89.4 % (36.0-66.0); Platelet Count 218 K/mm3 (150-450); Red Blood Count 4.24 M/mm3 (4.1-5.6); Red Cell Distribution Width 12.7 % (11.5-14.0)
--- NOTE | 2021-02-23 13:40 | XRAY ---
Indication: Dyspnea. Positive Covid 19. Comparison: February 20, 2021. Portable chest demonstrates mild worsening bilateral mid and lower lung interstitial alveolar opacities again without consolidation/large effusion. Heart not enlarged again with CABG. No new cardiopulmonary abnormalities.
[2021-02-23 13:56] LABS: ALBUMIN 3.5 g/dL (3.5-5.0); ALKALINE PHOSPHATASE 95 U/L (38-126); ANION GAP 14.3 MEQ/L (5-15); BLOOD UREA NITROGEN 19 mg/dL (9-20); CHLORIDE 103 mmol/L (98-107); Carbon Dioxide 23 mmol/L (22-30); Creatinine 1 0.93 mg/dL (0.66-1.25); EST GLOMERULAR FILTRATION RATE > 60.0 ML/MIN; Glucose 85 mg/dL (74-106); Potassium 3.9 mmol/L (3.5-5.1); SGOT/AST 26 U/L (17-59); SGPT/ALT 17 U/L (0-50); SODIUM 137 mmol/L (137-145); Total Protein 6.3 g/dL (6.3-8.2)
[2021-02-23] MEDS ORDERED: Zofran 4 MG/2 ML VIAL IV PRN (14:24)
[2021-02-23] MEDS ORDERED: REMDESIVIR 200 MG in Sodium Chloride 0.9% 250 ML 250 ML IV ONE (14:29)
[2021-02-23] MEDS ORDERED: Sodium Chloride 0.9% 1000 ML 1,000 ML IV SCH (14:30)
[2021-02-23] MEDS ORDERED: ENOXAPARIN SODIUM SQ SCH (14:30)
[2021-02-23 15:58] LABS: Slide Review 1 YES
[2021-02-23] MEDS ORDERED: ENOXAPARIN SODIUM SQ ONE ×2 (16:12→16:49)
[2021-02-23 16:58] VITALS: BP 154/79; PULSE 77
[2021-02-23 20:43] VITALS: O2SAT 86
[2021-02-23] MEDS ORDERED: Pepcid 20 MG VIAL IV SCH (22:00)
[2021-02-24] MEDS ORDERED: REMDESIVIR 100 MG in Sodium Chloride 0.9% 100 ML BAG 100 ML IV SCH (14:28)
== END 2021-02-23 19:15 | disposition short-term general hospital (02) ==
LOC: ED 13:11
DX: U07.1 COVID-19 (principal); R06.02 Shortness of breath; R05 Cough; R50.9 Fever, unspecified; Z79.899 Other long term (current) drug therapy
CPT/HCPCS: 36000; 36415; 71045; 80053; 83605; 84484; 85025; 85379; 93005; 96372; 96374; 99285; 99291; J1100; J1650

== ENCOUNTER 2021-04-09 08:22 | Observation (INO) | payer OTHER ==
[2021-04-09] MEDS ORDERED: TYLENOL EXTRA STRENGTH 500 MG PO PRN (08:37)
--- NOTE | 2021-04-09 09:02 | XRAY ---
Indication: Short of breath. Positive Covid 19. Comparison: February 23, 2021. Portable chest less inflated accentuating previous bibasilar interstitial alveolar opacities. Remaining heart and lungs unremarkable again with CABG surgery. No new cardiopulmonary abnormalities.
[2021-04-09 09:10] LABS: Mean Cell Volume 100.8 fl (78-100); Mean Corpuscular Hemoglobin 32.7 pg (26-32); Mean Corpuscular Hgb Concent. 32.5 g/dl (32-36); Mean Platelet Volume 11.9 fl (7.5-11.0); Platelet Count 97 K/mm3 (150-450); Red Blood Count 3.97 M/mm3 (4.1-5.6); Red Cell Distribution Width 14.1 % (11.5-14.0); White Blood Count 14.9 K/mm3 (4.0-10.5)
[2021-04-09 09:23] LABS: ALBUMIN 2.9 g/dL (3.5-5.0); ANION GAP 17.6 MEQ/L (5-15); BILIRUBIN,TOTAL 0.6 mg/dL (0.2-1.3); Calcium 8.6 mg/dL (8.4-10.2); Creatinine 1 1.91 mg/dL (0.66-1.25); EST GLOMERULAR FILTRATION RATE 36.8 ML/MIN; Potassium 4.9 mmol/L (3.5-5.1); Total Protein 5.6 g/dL (6.3-8.2)
[2021-04-09] MEDS ORDERED: Levofloxacin 500MG/100ML D5W 500 MG/100 ML BAG IV STA (09:43)
[2021-04-09] MEDS ORDERED: Levofloxacin 500MG/100ML D5W 500 MG/100 ML BAG IV ONE (09:46)
[2021-04-09 10:46] LABS: Appearance CLOUDY (CLEAR); Bacteria PACKED /HPF (NEGATIVE); Bilirubin NEGATIVE (NEGATIVE); Blood SMALL Ery/ul (0-5); Glucose NEGATIVE (NEGATIVE); Hyaline Casts 0-2 /LPF (0-2); Ketones NEGATIVE (NEGATIVE); Leukocyte Esterase LARGE (NEGATIVE); Mucus SLIGHT /HPF (NEGATIVE); Nitrite POSITIVE (NEGATIVE); Protein,Urine Dip 100 (Negative); Specific Gravity 1.021 (1.005-1.025); Urobilinogen NEGATIVE mg/dL (0-1); WBC >100 /HPF (0-5)
[2021-04-09 10:48] LABS: BAND 5 % (0.0-2.0); Lymphocytes 2 % (24-44); Monocyte 7 % (0.0-12.0); Neutrophils 86 % (36.-66.); Platelet Estimate DECREASED (NORMAL); Total Cells Counted 100
--- NOTE | 2021-04-09 11:52 | ERPHSYRPT ---
- History of Present Illness Time Seen by Provider: 04/09/21 08:43 Source: patient, EMS Exam Limitations: no limitations Patient Subjective Stated Complaint: Pt states "I had covid back in february and was admitted to the [facility], I have not felt good since, for the past couple of weeks I have been running a fever, had nausea, vomiting and diarrhea." Triage Nursing Assessment: Pt presented alert and oriented X 3, skin pwd Pt able to speak in clear full sentences pt tachypneic, pt coughing, able to move all extremities, pt extremely warm to the touch. Physician History: 75 years old male with history of coronary artery disease status post CABG, hypertension, hyperlipidemia presented in the ER with chief complaint of fever chills with persistent coughing after Covid and UTI symptoms. Patient report he had a Covid 19 9 weeks ago and since then having continuous cough with some shortness of breath but no chest pain and for almost a week is having off-and-on fever with a T-max of 101 on presentation in the ER with associated chills. Patient does report he was seen at [facility] and was found out that he had a UTI but was not started on antibiotics and waiting for cultures to come back. He had appointment with [facility] today but was not feeling well so decided to come in here. He also report having loose stool, nausea with occasional vomiting for the last few days without any abdominal pain. Patient feels weak fatigued myalgia and lack of energy to do his routine activities. Timing/Duration: week(s), gradual onset, worse Fever Severity: moderate Associated Symptoms: cough, muscle aches, nausea/vomiting, shortness of breath, weakness, No chest pain, No stiff neck, No syncope Allergies/Adverse Reactions: Penicillins Allergy (Verified 02/23/21 13:16) Sulfa (Sulfonamide Antibiotics) Allergy (Verified 02/23/21 13:16) Home Medications: Aspirin 81 gm Chew [Baby Aspirin 81 mg Chew] 1 tab PO DAILY 11/26/18 [History] Metoprolol Tartrate 25 mg [Lopressor 25MG Tab] 12.5 mg PO BID 11/26/18 [History] Pravastatin Sodium [Pravachol] 80 mg PO HS 11/26/18 [History] Trazodone HCl 50 mg [Desyrel 50 mg] 50 mg PO HS 11/26/18 [History] Hx Tetanus, Diphtheria Vaccination/Date Given: No Hx Influenza Vaccination/Date Given: No Hx Pneumococcal Vaccination/Date Given: No Immunizations Up to Date: Yes Travel Risk - International Travel Have you traveled outside of the country in past 3 weeks: No - Coronavirus Screening Symptoms: Fever, Cough: New Onset, Shortness of Breath, Vomiting/Diarrhea Close contact with a COVID-19 positive Pt in past 14-21 Days: No - Vaccine Status Have you recieved a Covid-19 vaccination: No - Review of Systems Constitutional: Fever, Chills, Fatigue, Weakness Eyes: No Symptoms Ears, Nose, & Throat: No Symptoms Respiratory: Cough, Dyspnea, Dyspnea on Exertion (CONNOLLY) Cardiac: No Symptoms Abdominal/Gastrointestinal: Nausea, Vomiting, Diarrhea Genitourinary Symptoms: Dysuria, Frequency Musculoskeletal: Myalgias Skin: No Symptoms Neurological: No Symptoms Psychological: No Symptoms Endocrine: No Symptoms Hematologic/Lymphatic: No Symptoms Immunological/Allergic: No Symptoms - Past Medical History Pertinent Past Medical History: Yes Neurological History: No Pertinent History ENT History: No Pertinent History Cardiac History: Coronary Artery Disease Respiratory History: No Pertinent History Endocrine Medical History: No Pertinent History Musculoskeletal History: No Pertinent History GI Medical History: No Pertinent History History: No Pertinent History Psycho-Social History: No Pertinent History Male Reproductive Disorders: No Pertinent History - Past Surgical History Past Surgical History: Yes Neuro Surgical History: No Pertinent History Cardiac: No Pertinent History Respiratory: No Pertinent History Gastrointestinal: No Pertinent History Genitourinary: No Pertinent History Musculoskeletal: No Pertinent History Male Surgical History: No Pertinent History Other Surgical History: 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 and Open heart on May 29 2018 - Social History Smoking Status: Former smoker How long have you smoked: years Exposure to second hand smoke: No (not often) Drug Use: none Patient Lives Alone: No Significant Family History: no pertinent family hx - Nursing Vital Signs Nursing Vital Signs: Initial Vital Signs Temperature 101.5 F 04/09/21 08:23 Pulse Rate 126 H 04/09/21 08:23 Respiratory Rate 30 H 04/09/21 08:23 Blood Pressure 119/72 04/09/21 08:23 O2 Sat by Pulse Oximetry 93 L 04/09/21 08:23 Pain Scale Pain Intensity 0 - Physical Exam General Appearance: no apparent distress, alert Eye Exam: PERRL/EOMI, eyes nml inspection ENT Exam: normal ENT inspection, no apparent trauma, hearing grossly normal, TMs normal Neck Exam: normal inspection, supple, full range of motion Respiratory Exam: chest non-tender, wheezing, No normal breath sounds (Tachypnea) Cardiovascular/Chest Exam: normal heart sounds, tachycardia Gastrointestinal/Abdominal Exam: soft, non tender, no distention, no mass, no guarding, no ecchymosis Extremity Exam: non-tender, normal range of motion Neurologic Exam: alert, oriented x 3, cooperative Skin Exam: normal color SpO2 Interpretation: normal SpO2: 98 O2 Delivery: Room Air - Course EKG Interpreted by Me: RATE (126), Sinus Rhythm, NORMAL AXIS, NORMAL INTERVALS, Non-specific ST Changes (Nonspecific T wave changes) Ordered Tests: Active Orders 24 hr Category Date Time Status Cctv Technician STAT Care 04/09/21 08:35 Active EKG-ER Only STAT Care 04/09/21 08:33 Active IV Insertion STAT Care 04/09/21 08:33 Active Pulse Oximetry (ED) STAT Care 04/09/21 08:33 Active CHEST 1 VIEW (PORTABLE) Stat Exams 04/09/21 08:48 Completed BLOOD CULTURE Stat Lab 04/09/21 08:55 Received CBC W DIFF Stat Lab 04/09/21 08:55 Completed CMP Stat Lab 04/09/21 08:55 Completed CULTURE,URINE Stat Lab 04/09/21 10:05 Received LIPASE Stat Lab 04/09/21 08:55 Completed Lactic Acid Stat Lab 04/09/21 09:00 Completed Lactic Acid Stat Lab 04/09/21 11:06 Completed Manual Differential NC Stat Lab 04/09/21 08:55 Completed Sputum Culture [CULTURE,SPUTUM] Stat Lab 04/09/21 09:22 Ordered UA W/RFX UR CULTURE Stat Lab 04/09/21 10:05 Completed Transfer Order Routine Transfer 04/09/21 Ordered Medication Summary Generic Name Dose Route Start Last Admin Trade Name Freq PRN Reason Stop Dose Admin Acetaminophen 1,000 mg 04/09/21 08:37 04/09/21 08:41 Acetaminophen 500 Mg Tablet PO 05/09/21 08:36 1,000 mg Q4H PRN PRN Administration HEADACHE Discontinued Medications Generic Name Dose Route Start Last Admin Trade Name Freq PRN Reason Stop Dose Admin Levofloxacin/Dextrose 500 mg in 100 mls @ 100 mls/hr 04/09/21 09:43 04/09/21 10:51 Levofloxacin 500mg/100ml D5w IV 04/09/21 10:42 Infused STAT STA Infusion Levofloxacin/Dextrose Confirm 04/09/21 09:46 Levofloxacin 500mg/100ml D5w Administered 04/09/21 09:47 Dose 500 mg in 100 mls @ ud IV .STK-MED ONE Lab/Rad Data: Laboratory Result Diagrams 04/09/21 08:55 04/09/21 08:55 Laboratory Results 04/09/21 04/09/21 04/09/21 Range/Units 12:00 11:06 10:05 WBC (4.0-10.5) K/mm3 RBC (4.1-5.6) M/mm3 Hgb (12.5-18.0) gm/dl Hct (42-50) % MCV (78-100) fl MCH (26-32) pg MCHC (32-36) g/dl RDW (11.5-14.0) % Plt Count (150-450) K/mm3 MPV (7.5-11.0) fl Segmented Neutrophils (36.-66.) % Band Neutrophils (0.0-2.0) % Lymphocytes (Manual) (24-44) % Monocytes (Manual) (0.0-12.0) % Platelet Estimate (NORMAL) RBC Morphology Sodium (137-145) mmol/L Potassium (3.5-5.1) mmol/L Chloride (98-107) mmol/L Carbon Dioxide (22-30) mmol/L Anion Gap (5-15) MEQ/L BUN (9-20) mg/dL Creatinine (0.66-1.25) mg/dL Estimated GFR ML/MIN Glucose (74-106) mg/dL Lactic Acid 1.4 (0.4-2.0) Calcium (8.4-10.2) mg/dL Total Bilirubin (0.2-1.3) mg/dL AST (17-59) U/L ALT (0-50) U/L Alkaline Phosphatase (38-126) U/L Serum Total Protein (6.3-8.2) g/dL Albumin (3.5-5.0) g/dL Lipase (23-300) U/L Urine Color YELLOW (YELLOW) Urine Appearance CLOUDY (CLEAR) Urine pH 5.0 (5-6) Ur Specific Kent 1.021 (1.005-1.025) Urine Protein 100 (Negative) Urine Ketones NEGATIVE (NEGATIVE) Urine Blood SMALL (0-5) Eagle/ul Urine Nitrite POSITIVE (NEGATIVE) Urine Bilirubin NEGATIVE (NEGATIVE) Urine Urobilinogen NEGATIVE (0-1) mg/dL Ur Leukocyte Esterase LARGE (NEGATIVE) Urine WBC (Auto) >100 (0-5) /HPF Urine RBC (Auto) 3-5 (0-2) /HPF U Hyaline Cast (Auto) 0-2 (0-2) /LPF U Epithel Cells (Auto) NONE (FEW) /HPF Urine Bacteria (Auto) PACKED (NEGATIVE) /HPF Urine Mucus (Auto) SLIGHT (NEGATIVE) /HPF Urine Culture Reflexed YES (NO) Urine Glucose NEGATIVE (NEGATIVE) mg/dL SARS-CoV-2 (PCR) NEGATIVE (NEGATIVE) 04/09/21 04/09/21 04/09/21 Range/Units 09:00 08:55 08:55 WBC (4.0-10.5) K/mm3 RBC (4.1-5.6) M/mm3 Hgb (12.5-18.0) gm/dl Hct (42-50) % MCV (78-100) fl MCH (26-32) pg MCHC (32-36) g/dl RDW (11.5-14.0) % Plt Count (150-450) K/mm3 MPV (7.5-11.0) fl Segmented Neutrophils (36.-66.) % Band Neutrophils (0.0-2.0) % Lymphocytes (Manual) (24-44) % Monocytes (Manual) (0.0-12.0) % Platelet Estimate (NORMAL) RBC Morphology Sodium 139 (137-145) mmol/L Potassium 4.9 (3.5-5.1) mmol/L Chloride 106 (98-107) mmol/L Carbon Dioxide 20 L (22-30) mmol/L Anion Gap 17.6 H (5-15) MEQ/L BUN 31 H (9-20) mg/dL Creatinine 1.91 H (0.66-1.25) mg/dL Estimated GFR 36.8 ML/MIN Glucose 126 H (74-106) mg/dL Lactic Acid 3.6 H (0.4-2.0) Calcium 8.6 (8.4-10.2) mg/dL Total Bilirubin 0.60 (0.2-1.3) mg/dL AST 27 (17-59) U/L ALT 18 (0-50) U/L Alkaline Phosphatase 144 H (38-126) U/L Serum Total Protein 5.6 L (6.3-8.2) g/dL Albumin 2.9 L (3.5-5.0) g/dL Lipase 34 (23-300) U/L Urine Color (YELLOW) Urine Appearance (CLEAR) Urine pH (5-6) Ur Specific Kent (1.005-1.025) Urine Protein (Negative) Urine Ketones (NEGATIVE) Urine Blood (0-5) Eagle/ul Urine Nitrite (NEGATIVE) Urine Bilirubin (NEGATIVE) Urine Urobilinogen (0-1) mg/dL Ur Leukocyte Esterase (NEGATIVE) Urine WBC (Auto) (0-5) /HPF Urine RBC (Auto) (0-2) /HPF U Hyaline Cast (Auto) (0-2) /LPF U Epithel Cells (Auto) (FEW) /HPF Urine Bacteria (Auto) (NEGATIVE) /HPF Urine Mucus (Auto) (NEGATIVE) /HPF Urine Culture Reflexed (NO) Urine Glucose (NEGATIVE) mg/dL SARS-CoV-2 (PCR) (NEGATIVE) 04/09/21 Range/Units 08:55 WBC 14.9 H (4.0-10.5) K/mm3 RBC 3.97 L (4.1-5.6) M/mm3 Hgb 13.0 (12.5-18.0) gm/dl Hct 40.0 L (42-50) % MCV 100.8 H (78-100) fl MCH 32.7 H (26-32) pg MCHC 32.5 (32-36) g/dl RDW 14.1 H (11.5-14.0) % Plt Count 97 L (150-450) K/mm3 MPV 11.9 H (7.5-11.0) fl Segmented Neutrophils 86 H (36.-66.) % Band Neutrophils 5 H (0.0-2.0) % Lymphocytes (Manual) 2 L (24-44) % Monocytes (Manual) 7 (0.0-12.0) % Platelet Estimate DECREASED (NORMAL) RBC Morphology NORMAL Sodium (137-145) mmol/L Potassium (3.5-5.1) mmol/L Chloride (98-107) mmol/L Carbon Dioxide (22-30) mmol/L Anion Gap (5-15) MEQ/L BUN (9-20) mg/dL Creatinine (0.66-1.25) mg/dL Estimated GFR ML/MIN Glucose (74-106) mg/dL Lactic Acid (0.4-2.0) Calcium (8.4-10.2) mg/dL Total Bilirubin (0.2-1.3) mg/dL AST (17-59) U/L ALT (0-50) U/L Alkaline Phosphatase (38-126) U/L Serum Total Protein (6.3-8.2) g/dL Albumin (3.5-5.0) g/dL Lipase (23-300) U/L Urine Color (YELLOW) Urine Appearance (CLEAR) Urine pH (5-6) Ur Specific [place] (1.005-1.025) Urine Protein (Negative) Urine Ketones (NEGATIVE) Urine Blood (0-5) Eagle/ul Urine Nitrite (NEGATIVE) Urine Bilirubin (NEGATIVE) Urine Urobilinogen (0-1) mg/dL Ur Leukocyte Esterase (NEGATIVE) Urine WBC (Auto) (0-5) /HPF Urine RBC (Auto) (0-2) /HPF U Hyaline Cast (Auto) (0-2) /LPF U Epithel Cells (Auto) (FEW) /HPF Urine Bacteria (Auto) (NEGATIVE) /HPF Urine Mucus (Auto) (NEGATIVE) /HPF Urine Culture Reflexed (NO) Urine Glucose (NEGATIVE) mg/dL SARS-CoV-2 (PCR) (NEGATIVE) - Progress Progress: improved, re-examined Progress Note: 04/09/21 75 years old is evaluated for fever chills with generalized weakness fatigue and tiredness for almost 1 week with history of recent UTI and was not placed on antibiotics. Patient was tachycardic on presentation with a fever of 101, given Tylenol and fluid bolus and heart rate improved to 80s. Work-up showed white count of 14, lactate of 3.6 with urinalysis consistent with UTI and chest x-ray did not show any acute infiltrative process but old changes. Is given a dose of Levaquin. Patient also has acute renal failure with a baseline creatinine of 0.9 and today is 1.9. We will continue with IV hydration which would help with renal failure. I believe patient's renal failure is secondary to vomiting and diarrhea. Patient does not have any abdominal tenderness and I have not done any imaging and good bowel sounds. Does not have any vomiting or diarrhea while in the ER. Recheck lactate is 1.4 after fluids. Discussed with Dr. Cardenas, reviewed history, work-up, agreed with IV fluid and Levaquin and patient is accepted for admission. Discussed with : Veronica Will see patient in: hospital (observation) Counseled pt/family regarding: lab results, diagnosis, rad results - Departure Departure Disposition: Observation Clinical Impression: Sepsis secondary to UTI, Gastroenteritis Acute renal failure Qualifiers: Acute renal failure type: unspecified Qualified Code(s): N17.9 - Acute kidney failure, unspecified Condition: Stable Critical Care Time: No Referrals: [facility],'S [Primary Care Provider] - Follow up/PCP as directed
[2021-04-09] MEDS ORDERED: Zofran 4 MG/2 ML VIAL IV PRN (13:57)
[2021-04-09] MEDS ORDERED: Sodium Chloride 0.9% W/ 20 mEq KCl/LITER 1,000 ML IV SCH (13:57)
[2021-04-09] MEDS: Sodium Chloride 0.9% 1000 ML 1,000 ML IV SCH ×2 (14:35→23:16)
[2021-04-09] MEDS: DUONEB 0.5-3 MG/3 ml Neb IH SCH ×2 (14:50→18:55)
[2021-04-09] MEDS: PROTONIX 40 MG IV IV SCH (16:04)
[2021-04-09] MEDS ORDERED: ZOFRAN ODT 4 MG PO PRN (16:12)
[2021-04-09] MEDS: TYLENOL 325 MG PO PRN (21:20)
[2021-04-09] MEDS: DESYREL 50 MG PO SCH (21:21)
[2021-04-09] MEDS: ZOCOR 20MG PO SCH (21:21)
[2021-04-09] MEDS: Lopressor 25MG Tab PO SCH (21:21)
[2021-04-09] MEDS ORDERED: PRAVASTATIN SODIUM 80 MG PO SCH (22:00)
[2021-04-10 05:27] LABS: Hematocrit 37.8 % (42-50); Hemoglobin 12.2 gm/dl (12.5-18.0); Mean Corpuscular Hemoglobin 32.3 pg (26-32); Mean Corpuscular Hgb Concent. 32.3 g/dl (32-36); Mean Platelet Volume 11.8 fl (7.5-11.0); Platelet Count 76 K/mm3 (150-450); Red Blood Count 3.78 M/mm3 (4.1-5.6); Red Cell Distribution Width 14.1 % (11.5-14.0); White Blood Count 10.7 K/mm3 (4.0-10.5)
[2021-04-10 05:42] LABS: ALBUMIN 2.5 g/dL (3.5-5.0); ANION GAP 13.9 MEQ/L (5-15); BILIRUBIN,TOTAL 0.4 mg/dL (0.2-1.3); Calcium 8.3 mg/dL (8.4-10.2); Creatinine 1 1.59 mg/dL (0.66-1.25); EST GLOMERULAR FILTRATION RATE 45.5 ML/MIN; Potassium 4.3 mmol/L (3.5-5.1); Total Protein 5.1 g/dL (6.3-8.2)
[2021-04-10 07:11] LABS: ATYPICAL LYMPHS 1 %; BAND 17 % (0.0-2.0); Eosinophil 1 % (0.00-3.0); Lymphocytes 6 % (24-44); Monocyte 7 % (0.0-12.0); Neutrophils 68 % (36.-66.); Total Cells Counted 100
[2021-04-10 07:12] LABS: Macrocytosis 1+; Platelet Estimate DECREASED (NORMAL)
[2021-04-10] MEDS: DUONEB 0.5-3 MG/3 ml Neb IH SCH ×4 (07:20→19:22)
[2021-04-10] MEDS: Sodium Chloride 0.9% 1000 ML 1,000 ML IV SCH ×2 (07:49→18:37)
[2021-04-10] MEDS: TYLENOL EXTRA STRENGTH 500 MG PO SCH (08:28)
[2021-04-10] MEDS: Lopressor 25MG Tab PO SCH ×2 (09:56→21:30)
[2021-04-10] MEDS: PROTONIX 40 MG IV IV SCH (09:57)
[2021-04-10] MEDS: Levaquin 250MG/50ML D5W 250 MG/50 ML BAG IV SCH (09:57)
[2021-04-10] MEDS ORDERED: ECOTRIN 81 MG PO SCH (10:00)
[2021-04-10] MEDS ORDERED: ENOXAPARIN SODIUM SQ SCH (10:00)
[2021-04-10] MEDS ORDERED: ATARAX 25 MG PO PRN (18:58)
[2021-04-10] MEDS: TYLENOL 325 MG PO PRN (19:31)
[2021-04-10] MEDS: ZOCOR 20MG PO SCH (21:31)
[2021-04-10] MEDS: DESYREL 50 MG PO SCH (21:31)
[2021-04-11] MEDS: Sodium Chloride 0.9% 1000 ML 1,000 ML IV SCH ×2 (03:55→09:24)
[2021-04-11] MEDS: TYLENOL 325 MG PO PRN ×2 (04:03→21:23)
[2021-04-11] MEDS: DUONEB 0.5-3 MG/3 ml Neb IH SCH ×4 (07:10→19:30)
[2021-04-11] MEDS: Levaquin 250MG/50ML D5W 250 MG/50 ML BAG IV SCH (09:24)
[2021-04-11] MEDS: TYLENOL EXTRA STRENGTH 500 MG PO SCH (09:25)
[2021-04-11] MEDS: Lopressor 25MG Tab PO SCH ×2 (09:25→21:24)
[2021-04-11] MEDS: PROTONIX 40 MG IV IV SCH (09:25)
[2021-04-11] MEDS ORDERED: Levaquin 250MG/50ML D5W 250 MG/50 ML BAG IV ONE (11:00)
[2021-04-11] MEDS: DESYREL 50 MG PO SCH (21:23)
[2021-04-11] MEDS: Nystatin SUSPENSION 60 ML PO SCH (21:25)
[2021-04-11] MEDS: ZOCOR 20MG PO SCH (21:25)
[2021-04-12] MEDS: Sodium Chloride 0.9% 1000 ML 1,000 ML IV SCH ×2 (03:11→16:56)
[2021-04-12 06:36] LABS: Hematocrit 35.2 % (42-50); Hemoglobin 11.5 gm/dl (12.5-18.0); Mean Cell Volume 96.7 fl (78-100); Mean Corpuscular Hemoglobin 31.6 pg (26-32); Mean Corpuscular Hgb Concent. 32.7 g/dl (32-36); Mean Platelet Volume 12.3 fl (7.5-11.0); Platelet Count 90 K/mm3 (150-450); Red Blood Count 3.64 M/mm3 (4.1-5.6); White Blood Count 10.9 K/mm3 (4.0-10.5)
[2021-04-12 06:44] LABS: ALBUMIN 2.6 g/dL (3.5-5.0); ALKALINE PHOSPHATASE 202 U/L (38-126); BLOOD UREA NITROGEN 13 mg/dL (9-20); CHLORIDE 111 mmol/L (98-107); Calcium 8.3 mg/dL (8.4-10.2); Carbon Dioxide 19 mmol/L (22-30); Creatinine 1 1.18 mg/dL (0.66-1.25); EST GLOMERULAR FILTRATION RATE > 60.0 ML/MIN; Glucose 94 mg/dL (74-106); SGOT/AST 49 U/L (17-59); SGPT/ALT 29 U/L (0-50); SODIUM 139 mmol/L (137-145); Total Protein 5.4 g/dL (6.3-8.2)
[2021-04-12 06:46] LABS: Potassium 3.6 mmol/L (3.5-5.1)
[2021-04-12 06:48] LABS: ANION GAP 12.6 MEQ/L (5-15)
[2021-04-12] MEDS ORDERED: Cardizem 30 MG PO STA (07:53)
[2021-04-12] MEDS: DUONEB 0.5-3 MG/3 ml Neb IH SCH ×3 (08:00→22:23)
[2021-04-12 08:32] LABS: Slide Review YES
[2021-04-12] MEDS: TYLENOL EXTRA STRENGTH 500 MG PO SCH (09:40)
[2021-04-12] MEDS: Nystatin SUSPENSION 60 ML PO SCH ×4 (09:40→20:45)
[2021-04-12] MEDS: Levofloxacin 500MG/100ML D5W 500 MG/100 ML BAG IV SCH (09:40)
[2021-04-12] MEDS: PROTONIX 40 MG IV IV SCH (09:40)
[2021-04-12] MEDS: Cardizem 30 MG PO SCH ×2 (13:33→20:45)
[2021-04-12] MEDS: DESYREL 50 MG PO SCH (20:45)
[2021-04-12] MEDS: ZOCOR 20MG PO SCH (20:46)
[2021-04-12] MEDS: TYLENOL 325 MG PO PRN (20:52)
[2021-04-13] MEDS: Cardizem 30 MG PO SCH ×3 (05:20→21:48)
[2021-04-13 06:05] LABS: Hemoglobin 11.3 gm/dl (12.5-18.0); Mean Cell Volume 96.7 fl (78-100); Mean Corpuscular Hemoglobin 31.2 pg (26-32); Mean Corpuscular Hgb Concent. 32.3 g/dl (32-36); Mean Platelet Volume 11.9 fl (7.5-11.0); Platelet Count 122 K/mm3 (150-450); Red Blood Count 3.62 M/mm3 (4.1-5.6); Red Cell Distribution Width 13.9 % (11.5-14.0)
[2021-04-13 06:34] LABS: BLOOD UREA NITROGEN 12 mg/dL (9-20); Creatinine 1 1.04 mg/dL (0.66-1.25); EST GLOMERULAR FILTRATION RATE > 60.0 ML/MIN; Glucose 114 mg/dL (74-106)
[2021-04-13 06:35] LABS: ALBUMIN 2.5 g/dL (3.5-5.0); ALKALINE PHOSPHATASE 177 U/L (38-126); ANION GAP 13.1 MEQ/L (5-15); CHLORIDE 110 mmol/L (98-107); Calcium 8.2 mg/dL (8.4-10.2); Carbon Dioxide 19 mmol/L (22-30); Potassium 3.6 mmol/L (3.5-5.1); SGOT/AST 42 U/L (17-59); SGPT/ALT 30 U/L (0-50); SODIUM 139 mmol/L (137-145); Total Protein 5.2 g/dL (6.3-8.2)
[2021-04-13] MEDS: DUONEB 0.5-3 MG/3 ml Neb IH SCH ×4 (06:42→18:35)
[2021-04-13] MEDS: TYLENOL 325 MG PO PRN ×2 (06:54→21:53)
[2021-04-13] MEDS: Levofloxacin 500MG/100ML D5W 500 MG/100 ML BAG IV SCH (08:46)
[2021-04-13] MEDS: PROTONIX 40 MG IV IV SCH (08:47)
[2021-04-13] MEDS: Nystatin SUSPENSION 60 ML PO SCH ×4 (08:53→21:46)
[2021-04-13] MEDS: TYLENOL EXTRA STRENGTH 500 MG PO SCH (12:41)
[2021-04-13] MEDS: Sodium Chloride 0.9% 1000 ML 1,000 ML IV SCH (13:25)
--- NOTE | 2021-04-13 14:01 | PCM.NOTE ---
Date and Time: 04/13/21 2356 Subjective Assessment: Patient was admitted 04/09/21 with urosepsis and cough . Blood,urine and sputum cultures grew E.coli -has been on Levaquin. C/O fatigue/low energy and chilling today.Is eating some at each meal but appetite is low. Objective Exam General Appearance: mild distress (chilling) Neurologic Exam: alert, oriented x 3, cooperative Skin Exam: dry, pale Eye Exam: eyes nml inspection Ears, Nose, Throat Exam: normal ENT inspection Neck Exam: normal inspection Respiratory Exam: wheezing (left mid and low lung sanchez) Gastrointestinal/Abdomen Exam: soft (nontender,no CVA tenderness) Extremity Exam: normal inspection OBJECTIVE DATA Vital Signs: Vital Signs - 24 hr Temp Pulse Resp BP Pulse Ox 04/13/21 12:00 97.8 F 82 24 122/57 94 L 04/13/21 11:09 86 20 92 L 04/13/21 08:00 97.8 F 98 H 21 141/67 94 L 04/13/21 06:42 95 H 20 92 L 04/13/21 03:14 98.4 F 79 20 121/85 96 04/12/21 23:22 97.5 F 77 22 118/64 95 04/12/21 20:54 82 20 94 L 04/12/21 19:43 98.9 F 82 20 137/64 96 04/12/21 16:00 99.8 F 84 28 H 126/60 94 L Pain Assessment - Last Documented Pain Intensity 0 Pain Scale Used 0-10 Pain Scale Intake and Output: Intake & Output 04/11/21 04/12/21 04/13/21 04/14/21 12:59 11:59 11:59 11:59 Intake Total 1071 Output Total 1800 Balance -729 Weight 70.2 kg Lab Results: Lab Results-Last 24 Hours 04/13/21 04/13/21 Range/Units 05:00 05:00 WBC 13.0 H (4.0-10.5) K/mm3 RBC 3.62 L (4.1-5.6) M/mm3 Hgb 11.3 L (12.5-18.0) gm/dl Hct 35.0 L (42-50) % MCV 96.7 (78-100) fl MCH 31.2 (26-32) pg MCHC 32.3 (32-36) g/dl RDW 13.9 (11.5-14.0) % Plt Count 122 L D (150-450) K/mm3 MPV 11.9 H (7.5-11.0) fl Sodium 139 (137-145) mmol/L Potassium 3.6 (3.5-5.1) mmol/L Chloride 110 H (98-107) mmol/L Carbon Dioxide 19 L (22-30) mmol/L Anion Gap 13.1 (5-15) MEQ/L BUN 12 (9-20) mg/dL Creatinine 1.04 (0.66-1.25) mg/dL Estimated GFR > 60.0 ML/MIN Glucose 114 H (74-106) mg/dL Calcium 8.2 L (8.4-10.2) mg/dL Total Bilirubin 0.80 (0.2-1.3) mg/dL AST 42 (17-59) U/L ALT 30 (0-50) U/L Alkaline Phosphatase 177 H (38-126) U/L Serum Total Protein 5.2 L (6.3-8.2) g/dL Albumin 2.5 L (3.5-5.0) g/dL Multi-Disciplinary Progress Notes: Multi-Disciplinary Progress Notes 04/13/21 10:31 Case Management Note by Blanche Menjivar S/W PATIENT- HE CONTINUES TO DENY ANY NEW NEEDS REGARDING DC AT THIS TIME, WILL CONTINUE TO FOLLOW Initialized on 04/13/21 10:31 - END OF NOTE Assessment/Plan (1) Sepsis secondary to UTI Current Visit: Yes Status: Acute Assessment & Plan: not improving clinically,discussed with Pharmacy and culture reviewed dc'd Levaquin and started Rocephin . Code(s): A41.9 - SEPSIS, UNSPECIFIED ORGANISM; N39.0 - URINARY TRACT INFECTION, SITE NOT SPECIFIED (2) Lethargy Current Visit: Yes Status: Acute Assessment & Plan: IV vitamin Bag,protein supplement started. Code(s): R53.83 - OTHER FATIGUE
[2021-04-13] MEDS ORDERED: PHARMACY DOSING REQUEST MC ONE (15:00)
[2021-04-13] MEDS ORDERED: Vitamins For Infusion 10 ML INJECTION*** 10 ML, FOLNATE 5 MG/ML 10 ML VIAL** 1 MG, THIA... IV SCH ×4 (16:00)
[2021-04-13] MEDS: ZOCOR 20MG PO SCH (21:48)
[2021-04-13] MEDS: Ativan 1 MG PO SCH (21:48)
[2021-04-13] MEDS: DESYREL 50 MG PO SCH (21:48)
[2021-04-13] MEDS: ROCEPHIN 2 Gm-D5w 50ML BAG** 2 G/50 ML IVPB IV SCH (22:01)
[2021-04-14] MEDS: Cardizem 30 MG PO SCH ×3 (06:10→21:43)
[2021-04-14] MEDS: DUONEB 0.5-3 MG/3 ml Neb IH SCH ×4 (06:50→19:13)
[2021-04-14] MEDS: TYLENOL EXTRA STRENGTH 500 MG PO SCH (07:48)
[2021-04-14] MEDS: PROTONIX 40 MG IV IV SCH (07:48)
[2021-04-14] MEDS: Nystatin SUSPENSION 60 ML PO SCH ×4 (07:49→21:45)
[2021-04-14 13:29] LABS: Hematocrit 34.7 % (42-50); Hemoglobin 11.1 gm/dl (12.5-18.0); Mean Cell Volume 99.7 fl (78-100); Mean Corpuscular Hemoglobin 31.9 pg (26-32); Mean Platelet Volume 11.3 fl (7.5-11.0); Platelet Count 174 K/mm3 (150-450); Red Blood Count 3.48 M/mm3 (4.1-5.6); Red Cell Distribution Width 14.3 % (11.5-14.0); White Blood Count 10.4 K/mm3 (4.0-10.5)
--- NOTE | 2021-04-14 14:09 | PCM.NOTE ---
Date and Time: 04/14/21 1407 Subjective Assessment: Patient states he is breathing with ease today and has more energy. Fever last evening. Antibiotic was changed to Rocephin 2 grams q day 1st dose was last evening. Objective Exam General Appearance: no apparent distress Neurologic Exam: alert, oriented x 3, cooperative, normal mood/affect Skin Exam: normal color, warm, dry Respiratory Exam: other (improved aeration,no wheezing today) Cardiovascular Exam: regular rate/rhythm Extremity Exam: normal inspection OBJECTIVE DATA Vital Signs: Vital Signs - 24 hr Temp Pulse Resp BP Pulse Ox 04/14/21 12:00 98.2 F 89 21 107/61 91 L 04/14/21 11:27 77 18 90 L 04/14/21 07:57 99.4 F 94 H 21 117/54 90 L 04/14/21 06:53 89 18 92 L 04/14/21 04:00 99.7 F 90 18 108/56 95 04/14/21 00:00 99.1 F 88 16 101/55 93 L 04/13/21 19:33 97.8 F 84 17 122/67 96 04/13/21 18:38 82 20 92 L 04/13/21 16:00 98.1 F 94 H 22 131/66 93 L 04/13/21 14:56 81 20 93 L Pain Assessment - Last Documented Pain Intensity 1 Pain Scale Used 0-10 Pain Scale Intake and Output: Intake & Output 04/12/21 04/13/21 04/14/21 04/15/21 11:59 11:59 11:59 11:59 Intake Total 1071 1486 Output Total 1800 1850 Balance -729 -364 Weight 70.2 kg Lab Results: Lab Results-Last 24 Hours 04/14/21 Range/Units 13:20 WBC 10.4 (4.0-10.5) K/mm3 RBC 3.48 L (4.1-5.6) M/mm3 Hgb 11.1 L (12.5-18.0) gm/dl Hct 34.7 L (42-50) % MCV 99.7 (78-100) fl MCH 31.9 (26-32) pg MCHC 32.0 (32-36) g/dl RDW 14.3 H (11.5-14.0) % Plt Count 174 D (150-450) K/mm3 MPV 11.3 H (7.5-11.0) fl Multi-Disciplinary Progress Notes: Multi-Disciplinary Progress Notes 04/14/21 12:11 Case Management Note by Blanche Menjivar WAITING ON MD TO ROUND, REVIEWED CHART- DO NOT ANTICIPATE ANY CHANGES IN DC PLANS AT THIS TIME Initialized on 04/14/21 12:11 - END OF NOTE Assessment/Plan (1) Sepsis secondary to UTI Current Visit: Yes Status: Acute Assessment & Plan: improved with change in antibiotic from Levaquin to Rocephin,WBC improved but still low grade fever Code(s): A41.9 - SEPSIS, UNSPECIFIED ORGANISM; N39.0 - URINARY TRACT INFECTION, SITE NOT SPECIFIED (2) Bronchitis Current Visit: No Status: Acute Assessment & Plan: improved aeration Code(s): J40 - BRONCHITIS, NOT SPECIFIED ACUTE OR CHRONIC (3) Lethargy Current Visit: Yes Status: Resolved Code(s): R53.83 - OTHER FATIGUE
[2021-04-14 14:55] LABS: Absolute Neutrophil Ct (ANC) 8.38 (1.4-6.9); BASOPHIL % 0.2 % (0.0-0.4); Basophil (Absolute #) 0.02 (0-0.4); Eosinophil % 2.4 % (0.00-5.0); Eosinophil (Absolute #) 0.26 (0-0.5); Hematocrit 35.2 % (42-50); Hemoglobin 11.2 gm/dl (12.5-18.0); Lymphocyte (Absolute #) 1.01 (1.0-4.6); Lymphocytes % 9.5 % (24.0-44.0); Mean Corpuscular Hemoglobin 31.8 pg (26-32); Mean Corpuscular Hgb Concent. 31.8 g/dl (32-36); Mean Platelet Volume 11.1 fl (7.5-11.0); Monocyte (Absolute #) 0.95 (0.0-1.3); Monocytes % 8.9 % (0.0-12.0); Platelet Count 181 K/mm3 (150-450); Red Blood Count 3.52 M/mm3 (4.1-5.6); Red Cell Distribution Width 14.3 % (11.5-14.0); White Blood Count 10.6 K/mm3 (4.0-10.5)
[2021-04-14] MEDS: Triple Antibiotic Ointment TP SCH ×2 (15:14→22:13)
[2021-04-14 15:35] LABS: ALBUMIN 2.7 g/dL (3.5-5.0); ALKALINE PHOSPHATASE 173 U/L (38-126); ANION GAP 14.2 MEQ/L (5-15); BLOOD UREA NITROGEN 12 mg/dL (9-20); CHLORIDE 110 mmol/L (98-107); Calcium 8.3 mg/dL (8.4-10.2); Carbon Dioxide 22 mmol/L (22-30); Creatinine 1 1.18 mg/dL (0.66-1.25); EST GLOMERULAR FILTRATION RATE > 60.0 ML/MIN; Glucose 113 mg/dL (74-106); Potassium 3.9 mmol/L (3.5-5.1); SGOT/AST 39 U/L (17-59); SGPT/ALT 33 U/L (0-50); SODIUM 143 mmol/L (137-145); Total Protein 5.4 g/dL (6.3-8.2)
[2021-04-14] MEDS ORDERED: Vitamins For Infusion 10 ML INJECTION*** 10 ML, FOLNATE 5 MG/ML 10 ML VIAL** 1 MG, THIA... IV SCH ×4 (16:00)
[2021-04-14] MEDS: DESYREL 50 MG PO SCH (21:43)
[2021-04-14] MEDS: Ativan 1 MG PO SCH (21:43)
[2021-04-14] MEDS: ZOCOR 20MG PO SCH (21:43)
[2021-04-14] MEDS: TYLENOL 325 MG PO PRN (21:44)
[2021-04-14] MEDS: ROCEPHIN 2 Gm-D5w 50ML BAG** 2 G/50 ML IVPB IV SCH (22:12)
[2021-04-15] MEDS: DUONEB 0.5-3 MG/3 ml Neb IH SCH ×4 (07:02→18:53)
[2021-04-15] MEDS: Cardizem 30 MG PO SCH ×3 (07:29→21:51)
[2021-04-15] MEDS: TYLENOL EXTRA STRENGTH 500 MG PO SCH (09:46)
[2021-04-15] MEDS: Nystatin SUSPENSION 60 ML PO SCH ×4 (09:47→21:53)
[2021-04-15] MEDS: PROTONIX 40 MG IV IV SCH (09:47)
[2021-04-15] MEDS: Triple Antibiotic Ointment TP SCH ×3 (09:47→21:59)
--- NOTE | 2021-04-15 09:55 | XRAY ---
Indication: Cough. Comparison: April 09, 2021. Portable chest better inflated with grossly stable bilateral interstitial alveolar opacities, tiny right base calcified granuloma, and cardiothoracic surgery. No new cardiopulmonary abnormalities.
[2021-04-15] MEDS ORDERED: Zithromax 500 MG/ 250 ML NaCl Premix 500 MG/250 ML IVPB IV SCH (10:00)
[2021-04-15] MEDS ORDERED: Zithromax 250 MG TABLET ONE (10:28)
[2021-04-15] MEDS: Zithromax 250 MG TABLET PO SCH (10:29)
[2021-04-15 16:08] LABS: Appearance SLIGHTLY CLOUDY (CLEAR); Bacteria RARE /HPF (NEGATIVE); Bilirubin NEGATIVE (NEGATIVE); Blood NEGATIVE Ery/ul (0-5); Glucose NEGATIVE (NEGATIVE); Ketones NEGATIVE (NEGATIVE); Leukocyte Esterase TRACE (NEGATIVE); Mucus SLIGHT /HPF (NEGATIVE); Nitrite NEGATIVE (NEGATIVE); Protein,Urine Dip 30 (Negative); RBC 0-2 /HPF (0-2); Specific Gravity 1.013 (1.005-1.025); Urobilinogen NEGATIVE mg/dL (0-1)
[2021-04-15] MEDS: Ativan 1 MG PO SCH (21:51)
[2021-04-15] MEDS: ZOCOR 20MG PO SCH (21:51)
[2021-04-15] MEDS: TYLENOL 325 MG PO PRN (21:52)
[2021-04-15] MEDS: DESYREL 50 MG PO SCH (21:52)
[2021-04-15] MEDS: ROCEPHIN 2 Gm-D5w 50ML BAG** 2 G/50 ML IVPB IV SCH (21:59)
[2021-04-16] MEDS: DUONEB 0.5-3 MG/3 ml Neb IH SCH (05:40)
[2021-04-16 05:43] LABS: Hematocrit 32.8 % (42-50); Hemoglobin 10.5 gm/dl (12.5-18.0); Mean Cell Volume 99.7 fl (78-100); Mean Corpuscular Hemoglobin 31.9 pg (26-32); Platelet Count 228 K/mm3 (150-450); Red Blood Count 3.29 M/mm3 (4.1-5.6); Red Cell Distribution Width 14.2 % (11.5-14.0); White Blood Count 10.5 K/mm3 (4.0-10.5)
[2021-04-16 06:20] LABS: BLOOD UREA NITROGEN 9 mg/dL (9-20); CHLORIDE 110 mmol/L (98-107); Calcium 7.9 mg/dL (8.4-10.2); Carbon Dioxide 24 mmol/L (22-30); Creatinine 1 1.05 mg/dL (0.66-1.25); EST GLOMERULAR FILTRATION RATE > 60.0 ML/MIN; Glucose 95 mg/dL (74-106); PROCALCITONIN 0.295 ng/mL (0.030-0.080); Potassium 3.5 mmol/L (3.5-5.1); SODIUM 141 mmol/L (137-145)
[2021-04-16] MEDS: Cardizem 30 MG PO SCH (06:40)
[2021-04-16] MEDS: Nystatin SUSPENSION 60 ML PO SCH (09:26)
[2021-04-16] MEDS: Zithromax 250 MG TABLET PO SCH (09:26)
[2021-04-16] MEDS: PROTONIX 40 MG IV IV SCH (09:26)
[2021-04-16] MEDS: Triple Antibiotic Ointment TP SCH (09:26)
[2021-04-16] MEDS: TYLENOL EXTRA STRENGTH 500 MG PO SCH (09:26)
[2021-04-27 16:01] VITALS: BP 120/61; PULSE 87; O2SAT 91
--- NOTE | 2021-05-04 13:01 | PCM.HP ---
History of Present Illness - Chief Complaint Chief Complaint: UROSEPSIS Date: 04/09/21 History of Present Illness: is a 76 year old male. Pt. presented to er with complaints of not feeling well since February, when he was diagnosed with covid, pt. notes he was told about 1 week ago he had a U[facility] but [facility], pt. noted he was feeling more and more sick with fever, nausea and general aches he presented to ER. Pt. was admitted for sepsis and UTI. - Review of Systems Constitutional: Fever, Fatigue, Weakness Eyes: No Symptoms Ears, Nose, & Throat: No Symptoms Respiratory: No Cough, No Short Of Breath Cardiac: No Chest Pain, No Edema, No Syncope Abdominal/Gastrointestinal: Nausea, No Abdominal Pain, No Vomiting, No Diarrhea Genitourinary Symptoms: No Dysuria Musculoskeletal: No Back Pain, No Neck Pain Skin: No Rash Neurological: No Dizziness, No Focal Weakness, No Sensory Changes Psychological: No Symptoms Endocrine: No Symptoms Hematologic/Lymphatic: No Symptoms Immunological/Allergic: No Symptoms Medications & Allergies Home Medications: Home Medication List Aspirin 81 gm Chew [Baby Aspirin 81 mg Chew] 1 tab PO DAILY 11/26/18 [History Confirmed 04/09/21] Metoprolol Tartrate 25 mg [Lopressor 25MG Tab] 12.5 mg PO BID 11/26/18 [History Confirmed 04/09/21] Pravastatin Sodium [Pravachol] 80 mg PO HS 11/26/18 [History Confirmed 04/09/21] Trazodone HCl 50 mg [Desyrel 50 mg] 50 mg PO HS 11/26/18 [History Confirmed 04/09/21] Ondansetron ODT 4 MG [Zofran Odt 4 mg] 4 mg PO Q6H PRN PRN #10 tablet 02/20/21 [Rx Confirmed 04/09/21] Acetaminophen 500 mg [Tylenol Extra Strength 500 mg] 500 mg PO DAILY 04/09/21 [History Confirmed 04/09/21] Amoxicillin/Potassium Clav [Augmentin 875-125 Tablet] 1 each PO BID #20 tablet 04/16/21 [Rx] Azithromycin [Zithromax] 250 mg PO UD #6 tablet 04/16/21 [Rx] Allergies/Adverse Reactions: Allergies Allergy/AdvReac Type Severity Reaction Status Date / Time Penicillins Allergy Verified 04/09/21 14:17 Sulfa (Sulfonamide Allergy Verified 04/09/21 14:17 Antibiotics) - Past Medical History Past Medical History: Yes Neurological History: No Pertinent History ENT History: No Pertinent History Cardiac History: Coronary Artery Disease Respiratory History: No Pertinent History Endocrine Medical History: No Pertinent History Musculoskelatal History: No Pertinent History GI Medical History: No Pertinent History History: No Pertinent History Pyscho-Social History: No Pertinent History Male Reproductive Disorders: No Pertinent History - Past Surgical History Past Surgical History: Yes Neuro Surgical History: No Pertinent History Cardiac History: No Pertinent History Respiratory Surgery: No Pertinent History GI Surgical History: No Pertinent History Genitourinary Surgical Hx: No Pertinent History Musculskeletal Surgical Hx: No Pertinent History Male Surgical History: No Pertinent History Other Surgical History: 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 and Open heart on May 29 2018 - Social History Smoking Status: Former smoker How long have you smoked: years Exposure to second hand smoke: No (not often) Alcohol: Occasionally Drug Use: none Significant Family History: no pertinent family hx - Physical Exam General Appearance: no apparent distress Neurologic Exam: alert, oriented x 3, cooperative, normal mood/affect, nml cerebellar function, sensation nml, No motor deficits Eye Exam: PERRL/EOMI, eyes nml inspection Ears, Nose, Throat Exam: normal ENT inspection, pharynx normal, moist mucous membranes Neck Exam: normal inspection, non-tender, supple, full range of motion Respiratory Exam: normal breath sounds, lungs clear, No respiratory distress Cardiovascular Exam: regular rate/rhythm, normal heart sounds, normal peripheral pulses Gastrointestinal/Abdomen Exam: soft, normal bowel sounds, No tenderness, No mass Back Exam: normal inspection, normal range of motion, No CVA tenderness, No vertebral tenderness Extremity Exam: normal inspection, normal range of motion, pelvis stable Skin Exam: normal color, warm, dry, No rash Lymphatic Exam: No adenopathy Results - Labs Lab/Micro Results: Microbiology 04/15/21 16:08 Urine Culture - Final Urine, Void NO GROWTH 04/09/21 09:22 Gram Stain - Final Sputum - Expectorant Sputum Culture - Final Enterobacter Clocae Complex 11/04/21 10:05 Urine Culture - Final Clean Catch Midstream Escherichia Coli 04/09/21 09:00 Blood Culture Gram Stain - Final Blood Blood Culture - Final Escherichia Coli 04/09/21 08:55 Blood Culture Gram Stain - Final Blood Blood Culture - Final Escherichia Coli Assessment/Plan (1) UTI (urinary tract infection) Status: Acute Assessment & Plan: treat with broad spectum abx, adjust based on clinical picture as we await culture and sensitivity. Code(s): N39.0 - URINARY TRACT INFECTION, SITE NOT SPECIFIED (2) Sepsis Status: Acute Assessment & Plan: iv hydration and maintenance of volume status and blood pressure as we treat with iv antibiotics.
--- NOTE | 2021-05-04 13:05 | PCM.DS ---
Discharge Summary Date of Admission: 04/09/21 13:48 Date of Discharge: 04/16/2021 Admitting Physician: HALINA DO Primary Care Provider: [facility] Allergies Allergies Penicillins Allergy (Verified 04/09/21 14:17) Sulfa (Sulfonamide Antibiotics) Allergy (Verified 04/09/21 14:17) Hospital Summary - Hospital Course Hospital Course: Pt. admitted and started on empiric antibiotics but after a few days was noted to not be improving and then noted to start having some symptoms of bronchitis, antibiotic was changed to Rocephin. Pt. gradually improved with this change and strength started to return after about 1 week in the hospital the C&S was back, pt. had improved enough and felt stable with no fevers for discharge to home. - Vitals & Intake/Output Vital Signs: Vital Signs Temperature 99.0 F 04/16/21 07:23 Pulse Rate 87 04/16/21 07:23 Respiratory Rate 16 04/16/21 07:23 Blood Pressure 120/61 04/16/21 07:23 O2 Sat by Pulse Oximetry 91 L 04/16/21 07:23 - Lab Result Diagrams: 04/16/21 05:26 04/16/21 05:26 Micro Results-Entire Visit: Microbiology 04/15/21 16:08 Urine Culture - Final Urine, Void NO GROWTH 04/09/21 09:22 Gram Stain - Final Sputum - Expectorant Sputum Culture - Final Enterobacter Clocae Complex 04/09/21 10:05 Urine Culture - Final Clean Catch Midstream Escherichia Coli 04/09/21 09:00 Blood Culture Gram Stain - Final Blood Blood Culture - Final Escherichia Coli 04/09/21 08:55 Blood Culture Gram Stain - Final Blood Blood Culture - Final Escherichia Coli - Procedures and Test Procedures and Tests throughout Hospitalization: Therapy Orders & Screens 04/09/21 15:05 Respiratory Therapy Assessment DAILY Comment: Diagnosis: UROSEPSIS 04/12/21 07:40 EKG STAT Comment: Diagnosis: UROSEPSIS 04/15/21 07:00 PT Eval & Treat ( Order) 1-3XD Reason for Eval:: generalized weakness from lengthy hosp stay and sepsis Diagnosis: UROSEPSIS Discharge Exam General Appearance: no apparent distress, alert Neurologic Exam: alert, oriented x 3, cooperative, normal mood/affect, nml cerebellar function, sensation nml, No motor deficits Eye Exam: PERRL, EOMI, eyes nml inspection Ears, Nose, Throat Exam: normal ENT inspection, pharynx normal, moist mucous membranes Neck Exam: normal inspection, non-tender, supple, full range of motion Respiratory Exam: normal breath sounds, lungs clear, No respiratory distress Cardiovascular Exam: regular rate/rhythm, normal heart sounds Gastrointestinal/Abdomen Exam: soft, No tenderness, No mass Male Genitalia Exam: deferred Rectal Exam: deferred Back Exam: normal inspection, normal range of motion, No CVA tenderness, No vertebral tenderness Extremity Exam: normal inspection, normal range of motion Skin Exam: normal color, warm, dry Final Diagnosis/Problem List - Final Discharge Diagnosis/Problem (1) UTI (urinary tract infection) Status: Acute Code(s): N39.0 - URINARY TRACT INFECTION, SITE NOT SPECIFIED (2) Sepsis Status: Acute - Discharge Discharge Date: 04/16/21 Disposition: Home, Self-Care Condition: Stable Prescriptions: New Amoxicillin/Potassium Clav [Augmentin 875-125 Tablet] 1 each PO BID #20 tablet Azithromycin [Zithromax] 250 mg PO UD #6 tablet Continue Metoprolol Tartrate 25 mg [Lopressor 25MG Tab] 12.5 mg PO BID Aspirin 81 gm Chew [Baby Aspirin 81 mg Chew] 1 tab PO DAILY Trazodone HCl 50 mg [Desyrel 50 mg] 50 mg PO HS Pravastatin Sodium [Pravachol] 80 mg PO HS Ondansetron ODT 4 MG [Zofran Odt 4 mg] 4 mg PO Q6H PRN PRN #10 tablet PRN Reason: Vomiting Acetaminophen 500 mg [Tylenol Extra Strength 500 mg] 500 mg PO DAILY Instructions: Urinary Tract Infection, Adult (DC), Sepsis, Adult (DC) Additional Instructions[facility] CALL [facility]. Forms: Discharge Instructions
== END 2021-04-16 11:15 | disposition home or self-care (01) ==
LOC: ED 08:22 → MED SURG 13:48
PROVIDERS: ADMIT Family Medicine; ATTEND Family Medicine
DX: N39.0 Urinary tract infection, site not specified (principal); A41.9 Sepsis, unspecified organism; R19.7 Diarrhea, unspecified; Z86.16 Personal history of COVID-19; Z95.1 Presence of aortocoronary bypass graft; I10 Essential (primary) hypertension; E78.5 Hyperlipidemia, unspecified; R11.2 Nausea with vomiting, unspecified; Z79.899 Other long term (current) drug therapy; R53.83 Other fatigue; J40 Bronchitis, not specified as acute or chronic; Z20.822 Contact with and (suspected) exposure to COVID-19
CPT/HCPCS: 36000; 36415; 71045; 80048; 80053; 81001; 83605; 83690; 84145; 85025; 85027; 87040; 87070; 87077; 87086; 87186; 93005; 93041; 93268; 94640; 94760; 94762; 96365; 97161; 99285; G0378; U0003; J0696; J1650; J1956; Q0162; A9270-GY

== ENCOUNTER 2021-10-11 13:40 | Emergency (ER) | payer OTHER ==
--- NOTE | 2021-10-11 14:10 | ERPHSYRPT ---
- History of Present Illness Source: patient Exam Limitations: no limitations Patient Subjective Stated Complaint: Patient states he is having shortness of breath, and pain in his chest when he coughs. States he is having nighttime fevers. States he has been having body aches and a productive cough, dizziness and migraines. Triage Nursing Assessment: Patient to ED with cough, shortness of breath, and body aches. VS WNL. Physician History: 76 yo wm w cough/dyspnea/fever/coryza/ST x 1 wk. Pt has not seen his PCP. He smoked 1ppd until 2yrs ago. Pt has had some N/V but denies diarrhea/melena/hematochezia. Chest pain is denied. Timing/Duration: other (1wk) Activities at Onset: rest Severity of Dyspnea-Max: moderate Severity of Dyspnea-Current: mild Possible Cause: occasional episodes Modifying Factors: Improves With: activity, coughing Associated Symptoms: cough, fever, productive cough, No chest pain/discomfort, No edema, No insomnia, No loss of appetite, No lightheadedness, No wheezing, No weakness, No ankle swelling, No chills, No hemoptysis, No calf pain, No dizziness, No heaviness, No heart racing, No lightheadedness, No leg swelling, No muscle spasms feet, No muscle spasms hands, No painful breathing, No sweating, No tightness, No tingling face Allergies/Adverse Reactions: Penicillins Allergy (Verified 10/11/21 14:00) Sulfa (Sulfonamide Antibiotics) Allergy (Verified 10/11/21 14:00) Home Medications: Aspirin 81 gm Chew [Baby Aspirin 81 mg Chew] 1 tab PO DAILY 11/26/18 [History] Metoprolol Tartrate 25 mg [Lopressor 25MG Tab] 12.5 mg PO BID 11/26/18 [History] Pravastatin Sodium [Pravachol] 80 mg PO HS 11/26/18 [History] Trazodone HCl 50 mg [Desyrel 50 mg] 50 mg PO HS 11/26/18 [History] Acetaminophen 500 mg [Tylenol Extra Strength 500 mg] 500 mg PO DAILY 09/24 [History] Hx Tetanus, Diphtheria Vaccination/Date Given: No Hx Influenza Vaccination/Date Given: No Hx Pneumococcal Vaccination/Date Given: No Immunizations Up to Date: Yes Travel Risk - International Travel Have you traveled outside of the country in past 3 weeks: No - Coronavirus Screening Are you exhibiting any of the following symptoms?: Yes Symptoms: Fever, Cough: New Onset, Shortness of Breath, Loss of Taste or Smell, Headaches/Body Aches/Fatigue - Vaccine Status Have you recieved a Covid-19 vaccination: No - Review of Systems Constitutional: No Symptoms, Fever, Chills Eyes: No Symptoms Ears, Nose, & Throat: No Symptoms, Nose Congestion, Nose Discharge Respiratory: Cough, Dyspnea Cardiac: No Symptoms Abdominal/Gastrointestinal: No Symptoms Genitourinary Symptoms: No Symptoms Musculoskeletal: No Symptoms Skin: No Symptoms Neurological: No Symptoms Psychological: No Symptoms Endocrine: No Symptoms Hematologic/Lymphatic: No Symptoms Immunological/Allergic: No Symptoms - Past Medical History Pertinent Past Medical History: Yes Neurological History: No Pertinent History ENT History: No Pertinent History Cardiac History: Coronary Artery Disease Respiratory History: No Pertinent History Endocrine Medical History: No Pertinent History Musculoskeletal History: No Pertinent History GI Medical History: No Pertinent History History: No Pertinent History Psycho-Social History: No Pertinent History Male Reproductive Disorders: No Pertinent History - Past Surgical History Past Surgical History: Yes Neuro Surgical History: No Pertinent History Cardiac: No Pertinent History Respiratory: No Pertinent History Gastrointestinal: No Pertinent History Genitourinary: No Pertinent History Musculoskeletal: No Pertinent History Male Surgical History: No Pertinent History Other Surgical History: 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 and Open heart on May 29 2018 - Social History Smoking Status: Never smoker How long have you smoked: years Exposure to second hand smoke: No Drug Use: none Patient Lives Alone: No Significant Family History: no pertinent family hx - Nursing Vital Signs Nursing Vital Signs: Initial Vital Signs Temperature 97.9 F 10/11/21 13:48 Pulse Rate 65 10/11/21 13:48 Respiratory Rate 16 10/11/21 13:48 Blood Pressure 153/73 10/11/21 13:48 O2 Sat by Pulse Oximetry 97 10/11/21 13:48 Pain Scale Pain Intensity 4 Hypertensive - Physical Exam General Appearance: no apparent distress Eye Exam: PERRL/EOMI, eyes nml inspection Ears, Nose, Throat Exam: hearing grossly normal, normal ENT inspection Neck Exam: normal inspection, non-tender, supple, full range of motion, No Brudzinski, No Kernig's, No meningismus, No carotid bruit Respiratory Exam: normal breath sounds, lungs clear, airway intact, prolonged expirations, No respiratory distress, No crackles/rales, No rhonchi, No wheezing Cardiovascular/Chest Exam: regular rate/rhythm, murmur (2/6 PERNELL) Abdominal/Gastrointestinal Exam: soft, normal bowel sounds, No tenderness Extremity Exam: non-tender, normal range of motion, normal inspection, normal capillary refill, no calf tenderness, no pedal edema Neurologic Exam: alert, oriented x 3, cooperative, upward bound director II-XII nml as tested, normal mood/affect, nml station & gait, sensation nml Skin Exam: normal color Lymphatic Exam: No adenopathy SpO2 Interpretation: normal SpO2: 97 O2 Delivery: Room Air - Course Nursing assessment & vital signs reviewed: Yes EKG Interpreted by Me: RATE (NSR/R64/Normal QT-QTc/Occ PVC/Qwave 3-AVF, old inferior NM/No acute ST segment changes) - Radiology Exams Chest X-ray Interpretation: Interpreted by me (CXR-post surgical chest/Nothing acute) - CT Exams Chest CT Interpretation: Tele-radiologist Report (COPD/Nothing acute) Ordered Tests: Active Orders 24 hr Category Date Time Status EKG-ER Only STAT Care 10/11/21 13:59 Completed IV Insertion STAT Care 10/11/21 14:09 Completed CHEST 1 VIEW (PORTABLE) Stat Exams 10/11/21 14:00 Taken CHEST WITHOUT CONTRAST [CT] Stat Exams 10/11/21 16:40 Taken CBC W DIFF Stat Lab 10/11/21 14:15 Completed CMP Stat Lab 10/11/21 14:15 Completed Lactic Acid Stat Lab 10/11/21 13:59 Completed Lactic Acid Stat Lab 10/11/21 16:40 Stop Req NT PRO BNP Stat Lab 10/11/21 14:15 Completed PROTIME WITH INR Stat Lab 10/11/21 14:15 Completed PTT Stat Lab 10/11/21 14:15 Completed TROPONIN Q3H Lab 10/11/21 14:15 Completed TROPONIN Q3H Lab 10/11/21 17:38 Completed Medication Summary Discontinued Medications Generic Name Dose Route Start Last Admin Trade Name Freq PRN Reason Stop Dose Admin Dexamethasone Sodium Phosphate 10 mg 10/11/21 18:14 05/08/22 18:18 Dexamethasone Sod Phosphate 10 Mg/Ml IV 10/11/21 18:15 10 mg STAT ONE Administration Dexamethasone Sodium Phosphate Confirm 10/11/21 18:17 Dexamethasone Sod Phosphate 10 Mg/Ml Administered 10/11/21 18:18 Dose 10 mg .ROUTE .STK-MED ONE Lab/Rad Data: Laboratory Result Diagrams 10/11/21 14:15 10/11/21 14:15 Laboratory Results 10/11/21 10/11/21 10/11/21 Range/Units Unknown 17:38 14:15 WBC (4.0-10.5) K/mm3 RBC (4.1-5.6) M/mm3 Hgb (12.5-18.0) gm/dl Hct (42-50) % MCV (78-100) fl MCH (26-32) pg MCHC (32-36) g/dl RDW (11.5-14.0) % Plt Count (150-450) K/mm3 MPV (7.5-11.0) fl Gran % (36.0-66.0) % Eos # (Auto) (0-0.5) Absolute Lymphs (auto) (1.0-4.6) Absolute Monos (auto) (0.0-1.3) Lymphocytes % (24.0-44.0) % Monocytes % (0.0-12.0) % Eosinophils % (0.00-5.0) % Basophils % (0.0-0.4) % Absolute Granulocytes (1.4-6.9) Basophils # (0-0.4) PT (9.4-12.5) SECONDS INR (0.8-3.0) APTT (25.1-36.5) SECONDS Sodium (137-145) mmol/L Potassium (3.5-5.1) mmol/L Chloride (98-107) mmol/L Carbon Dioxide (22-30) mmol/L Anion Gap (5-15) MEQ/L BUN (9-20) mg/dL Creatinine (0.66-1.25) mg/dL Estimated GFR ML/MIN Glucose (74-106) mg/dL Lactic Acid (0.4-2.0) Calcium (8.4-10.2) mg/dL Total Bilirubin (0.2-1.3) mg/dL AST (17-59) U/L ALT (0-50) U/L Alkaline Phosphatase (38-126) U/L Troponin I < 0.012 (0.000-0.034) ng/mL NT-Pro-B Natriuret Pep (0-1800) pg/mL Serum Total Protein (6.3-8.2) g/dL Albumin (3.5-5.0) g/dL Influenza Type A Ag NEGATIVE (NEGATIVE) Influenza Type B Ag NEGATIVE (NEGATIVE) RSV (PCR) NEGATIVE (Negative) SARS-CoV-2 (PCR) NEGATIVE (NEGATIVE) Group A Strep Antibody NOT DETECTED (NEGATIVE) 10/11/21 10/11/21 10/11/21 Range/Units 14:15 14:15 14:15 WBC (4.0-10.5) K/mm3 RBC (4.1-5.6) M/mm3 Hgb (12.5-18.0) gm/dl Hct (42-50) % MCV (78-100) fl MCH (26-32) pg MCHC (32-36) g/dl RDW (11.5-14.0) % Plt Count (150-450) K/mm3 MPV (7.5-11.0) fl Gran % (36.0-66.0) % Eos # (Auto) (0-0.5) Absolute Lymphs (auto) (1.0-4.6) Absolute Monos (auto) (0.0-1.3) Lymphocytes % (24.0-44.0) % Monocytes % (0.0-12.0) % Eosinophils % (0.00-5.0) % Basophils % (0.0-0.4) % Absolute Granulocytes (1.4-6.9) Basophils # (0-0.4) PT 11.1 (9.4-12.5) SECONDS INR 0.94 (0.8-3.0) APTT 31.8 (25.1-36.5) SECONDS Sodium 139 (137-145) mmol/L Potassium 4.6 (3.5-5.1) mmol/L Chloride 107 (98-107) mmol/L Carbon Dioxide 23 (22-30) mmol/L Anion Gap 13.8 (5-15) MEQ/L BUN 22 H (9-20) mg/dL Creatinine 1.26 H (0.66-1.25) mg/dL Estimated GFR 59.3 ML/MIN Glucose 160 H (74-106) mg/dL Lactic Acid (0.4-2.0) Calcium 9.2 (8.4-10.2) mg/dL Total Bilirubin 0.50 (0.2-1.3) mg/dL AST 23 (17-59) U/L ALT 13 (0-50) U/L Alkaline Phosphatase 114 (38-126) U/L Troponin I < 0.012 (0.000-0.034) ng/mL NT-Pro-B Natriuret Pep 875 (0-1800) pg/mL Serum Total Protein 6.9 (6.3-8.2) g/dL Albumin 4.1 (3.5-5.0) g/dL Influenza Type A Ag (NEGATIVE) Influenza Type B Ag (NEGATIVE) RSV (PCR) (Negative) SARS-CoV-2 (PCR) (NEGATIVE) Group A Strep Antibody (NEGATIVE) 10/11/21 10/11/21 Range/Units 14:15 13:59 WBC 13.1 H (4.0-10.5) K/mm3 RBC 4.63 (4.1-5.6) M/mm3 Hgb 15.2 (12.5-18.0) gm/dl Hct 45.1 (42-50) % MCV 97.4 (78-100) fl MCH 32.8 H (26-32) pg MCHC 33.7 (32-36) g/dl RDW 13.3 (11.5-14.0) % Plt Count 189 (150-450) K/mm3 MPV 11.2 H (7.5-11.0) fl Gran % 87.4 H (36.0-66.0) % Eos # (Auto) 0 (0-0.5) Absolute Lymphs (auto) 0.61 L (1.0-4.6) Absolute Monos (auto) 1.00 (0.0-1.3) Lymphocytes % 4.7 L (24.0-44.0) % Monocytes % 7.7 (0.0-12.0) % Eosinophils % 0.0 (0.00-5.0) % Basophils % 0.2 (0.0-0.4) % Absolute Granulocytes 11.44 H (1.4-6.9) Basophils # 0.02 (0-0.4) PT (9.4-12.5) SECONDS INR (0.8-3.0) APTT (25.1-36.5) SECONDS Sodium (137-145) mmol/L Potassium (3.5-5.1) mmol/L Chloride (98-107) mmol/L Carbon Dioxide (22-30) mmol/L Anion Gap (5-15) MEQ/L BUN (9-20) mg/dL Creatinine (0.66-1.25) mg/dL Estimated GFR ML/MIN Glucose (74-106) mg/dL Lactic Acid 1.9 (0.4-2.0) Calcium (8.4-10.2) mg/dL Total Bilirubin (0.2-1.3) mg/dL AST (17-59) U/L ALT (0-50) U/L Alkaline Phosphatase (38-126) U/L Troponin I (0.000-0.034) ng/mL NT-Pro-B Natriuret Pep (0-1800) pg/mL Serum Total Protein (6.3-8.2) g/dL Albumin (3.5-5.0) g/dL Influenza Type A Ag (NEGATIVE) Influenza Type B Ag (NEGATIVE) RSV (PCR) (Negative) SARS-CoV-2 (PCR) (NEGATIVE) Group A Strep Antibody (NEGATIVE) - Progress Progress Note: 10/11/21 20:32 Upon discharge, pt stated that he was finishing up a Medrol dose pack per virtual visit which he did not relate upon initial H/P. Pt advised to continue Decadron and start Doxycycline. 10/11/21 20:35 Pt's sats in mid 90's on RA throughout stay wo any evidence of disatress. 10/11/21 20:36 Counseled pt/family regarding: lab results, diagnosis, need for follow-up, rad results - Departure Departure Disposition: Home Clinical Impression: Bronchitis, COPD (chronic obstructive pulmonary disease) Condition: Stable Critical Care Time: No Referrals: [facility]OSPITAL,'S [Primary Care Provider] - Follow up/PCP as directed Instructions: Chronic Obstructive Pulmonary Disease, Chronic Obstructive Pulmonary Disease (COPD) (DC), Shortness of Breath (Dyspnea) (DC), Exacerbation of COPD (DC) Additional Instructions: Follow up with your family MD in 1-2 days Continue albuterol inhaler 2 puffs every 4 hours as needed Continue steroid inhaler 2 puffs twice a day Return to ER for increasing shortness of breath or temperature greater than 100.5 Prescriptions: Dexamethasone 4 mg [Decadron 4 MG] 4 mg PO DAILY 3 Days #3 tablet Doxycycline Monohydrate 100 mg PO BID 7 Days #14
[2021-10-11 14:23] LABS: Absolute Neutrophil Ct (ANC) 11.44 (1.4-6.9); Basophil (Absolute #) 0.02 (0-0.4); Eosinophil (Absolute #) 0 (0-0.5); Hematocrit 45.1 % (42-50); Hemoglobin 15.2 gm/dl (12.5-18.0); Lymphocyte (Absolute #) 0.61 (1.0-4.6); Lymphocytes % 4.7 % (24.0-44.0); Mean Cell Volume 97.4 fl (78-100); Mean Corpuscular Hemoglobin 32.8 pg (26-32); Mean Corpuscular Hgb Concent. 33.7 g/dl (32-36); Mean Platelet Volume 11.2 fl (7.5-11.0); Monocytes % 7.7 % (0.0-12.0); Neutrophil % 87.4 % (36.0-66.0); Platelet Count 189 K/mm3 (150-450); Red Blood Count 4.63 M/mm3 (4.1-5.6); Red Cell Distribution Width 13.3 % (11.5-14.0); White Blood Count 13.1 K/mm3 (4.0-10.5)
[2021-10-11 14:32] LABS: INR 0.94 (0.8-3.0); PROTIME 11.1 SECONDS (9.4-12.5)
[2021-10-11 14:34] LABS: PTT 31.8 SECONDS (25.1-36.5)
[2021-10-11 14:47] LABS: ALBUMIN 4.1 g/dL (3.5-5.0); ANION GAP 13.8 MEQ/L (5-15); BILIRUBIN,TOTAL 0.5 mg/dL (0.2-1.3); Calcium 9.2 mg/dL (8.4-10.2); Creatinine 1 1.26 mg/dL (0.66-1.25); EST GLOMERULAR FILTRATION RATE 59.3 ML/MIN; Total Protein 6.9 g/dL (6.3-8.2)
[2021-10-11 14:50] LABS: Potassium 4.6 mmol/L (3.5-5.1)
[2021-10-11 16:27] LABS: INFLUENZA A NEGATIVE (NEGATIVE); INFLUENZA B NEGATIVE (NEGATIVE); RESPIRATORY SYNCTIAL VIRUS NEGATIVE (Negative); SARS-CoV-2 Xpert Express NEGATIVE (NEGATIVE)
[2021-10-11 18:12] VITALS: O2SAT 97
[2021-10-11 18:13] VITALS: BP 139/81; PULSE 60
[2021-10-11] MEDS ORDERED: DECADRON 10MG INJ. ONE (18:17)
[2021-10-11] MEDS: DECADRON 10MG INJ. IV ONE (18:18)
--- NOTE | 2021-10-11 21:23 | XRAY ---
Indication: Cough, fever, nausea, and vomiting. Comparison: April 15, 2021. Portable chest hyperinflated and clear again with a few incidental tiny calcified granulomas. Heart not enlarged again with CABG. Bony thorax intact again with osteopenia and degenerative changes. Impression: Nonacute hyperinflated chest with chronic features.
--- NOTE | 2021-10-12 21:51 | XRAY ---
Exam: CT of the chest without IV contrast from 10/11/2021. CTDI: 9.05 mGy Comparison: AP upright portable chest film from 10/11/[address] of the chest with IV contrast from 02/20/2021. Indication: 76-year-old male with cough, shortness of breath/dyspnea, and nausea and vomiting. The patient has a past history of CABG. Technique: Non-IV contrast axial images were obtained through the chest. Reconstructed coronal and sagittal images were created and reviewed. Findings: The heart size is normal without pericardial effusion. I again see evidence of aortic valve replacement. There is also evidence of coronary artery bypass surgery with midline sternotomy. Coronary vascular calcification is seen within the robinson arteries. A small stable calcification is seen overlying the inferior aspect of the right hilum. No abnormal mediastinal or perihilar lymphadenopathy is seen. Vascular calcification is seen within the thoracic aorta. No aneurysm is seen. The lungs reveal stable bilateral centrilobular emphysematous changes. No pneumonic infiltrates, pleural fluid, or pneumothorax is seen. Minimal compression atelectasis is seen at the posterior left lung base. There is a 4 mm soft tissue nodule within the anterior right lung base which appears to be adjacent to the minor fissure. This is unchanged from 02/20/2021. I also note a small calcified granuloma at the right lung base within the right lower lobe. There is also a tiny calcified granuloma within the right upper lobe. No new abnormal soft tissue lung nodularity is seen. The visualized upper abdomen reveals an unremarkable appearance of the adrenal glands. No other significant gross abnormality is seen within the upper abdomen. The skeleton reveals moderate degenerative spondylosis within the mid and lower thoracic spine. No fracture or aggressive bone lesion is seen. Impression: 1. Stable moderate centrilobular emphysema is again seen. 2. Status post CABG and aortic valve replacement. 3. There is a 4 mm soft tissue nodule adjacent to the minor fissure within the anterior right lung base representing no change from 02/20/2021. 4. Some old healed granulomatous disease is seen on the right.
== END 2021-10-11 18:25 | disposition home or self-care (01) ==
LOC: ED 13:40
DX: J40 Bronchitis, not specified as acute or chronic (principal); J44.9 Chronic obstructive pulmonary disease, unspecified; R05.9 Cough, unspecified; R06.02 Shortness of breath; R50.9 Fever, unspecified; R09.81 Nasal congestion; J02.9 Acute pharyngitis, unspecified; R11.2 Nausea with vomiting, unspecified; I25.10 Atherosclerotic heart disease of native coronary artery without angina pectoris; Z79.52 Long term (current) use of systemic steroids; Z79.899 Other long term (current) drug therapy
CPT/HCPCS: 0241U; 36000; 36415; 71045; 71250; 80053; 83605; 83880; 84484; 85025; 85610; 85730; 87651; 93005; 96374; 99284; J1100

== ENCOUNTER 2021-11-15 03:41 | Emergency (ER) | payer OTHER ==
[2021-11-15] MEDS ORDERED: SUBLIMAZE 100 MCG/2 ML IV ONE (03:54)
[2021-11-15] MEDS ORDERED: Sodium Chloride 0.9% 1000 ML 1,000 ML IV SCH (04:00)
[2021-11-15] MEDS ORDERED: SUBLIMAZE 100 MCG/2 ML ONE (04:04)
[2021-11-15] MEDS ORDERED: Sodium Chloride 0.9% 1000 ML 1,000 ML ONE (04:05)
[2021-11-15 04:33] LABS: INR 0.98 (0.8-3.0); PROTIME 10.4 SECONDS (9.4-12.5); PTT 30.8 SECONDS (25.1-36.5)
[2021-11-15 04:41] LABS: ALBUMIN 3.7 g/dL (3.5-5.0); ALKALINE PHOSPHATASE 100 U/L (38-126); AMYLASE 73 U/L (30-110); ANION GAP 13.1 MEQ/L (5-15); Absolute Neutrophil Ct (ANC) 5.93 x10^3/uL (1.4-6.9); BLOOD UREA NITROGEN 15 mg/dL (9-20); Basophil (Absolute #) 0.06 x10^3/uL (0-0.4); CHLORIDE 106 mmol/L (98-107); Calcium 10.2 mg/dL (8.4-10.2); Carbon Dioxide 23 mmol/L (22-30); Creatinine 1 1.24 mg/dL (0.66-1.25); EST GLOMERULAR FILTRATION RATE > 60.0 ML/MIN; Eosinophil % 1.6 % (0.00-5.0); Eosinophil (Absolute #) 0.14 x10^3/uL (0-0.5); Glucose 111 mg/dL (74-106); Hematocrit 42.2 % (42-50); Hemoglobin 14.5 g/dL (12.5-18.0); LIPASE 62 U/L (23-300); Lymphocyte (Absolute #) 1.32 x10^3/uL (1.0-4.6); Lymphocytes % 15.4 % (24.0-44.0); MAGNESIUM 1.8 mg/dL (1.6-2.3); Mean Cell Volume 94.6 fL (78-100); Mean Corpuscular Hemoglobin 32.5 pg (26-32); Mean Corpuscular Hgb Concent. 34.4 g/dL (32-36); Mean Platelet Volume 10.5 fL (7.5-11.0); Monocyte (Absolute #) 1.08 x10^3/uL (0.0-1.3); Monocytes % 12.6 % (0.0-12.0); NT PRO BNP 628 pg/mL (0-1800); Neutrophil % 69.5 % (36.0-66.0); Platelet Count 158 x10^3/uL (150-450); Potassium 4.2 mmol/L (3.5-5.1); Red Blood Count 4.46 x10^6/uL (4.1-5.6); Red Cell Distribution Width 12.6 % (11.5-14.0); SGOT/AST 22 U/L (17-59); SGPT/ALT 12 U/L (0-50); SODIUM 138 mmol/L (137-145); Total Protein 6.4 g/dL (6.3-8.2); White Blood Count 8.6 x10^3/uL (4.0-10.5)
[2021-11-15 04:59] LABS: D-DIMER QUANTITATIVE 3.82 mg/L (0.0-0.50)
[2021-11-15 05:28] LABS: Bacteria RARE /HPF (NEGATIVE); Mucus SLIGHT /HPF (NEGATIVE); WBC 0-2 /HPF (0-5)
[2021-11-15 05:29] LABS: Appearance CLEAR (CLEAR); Bilirubin NEGATIVE (NEGATIVE); Glucose NEGATIVE (NEGATIVE)
[2021-11-15 05:30] LABS: Dipstick done @ ? MAIN LAB; Ketones NEGATIVE (NEGATIVE); Nitrite NEGATIVE (NEGATIVE); Protein,Urine Dip NEGATIVE (Negative); RBC NEGATIVE Ery/ul (0-5); Specific Gravity >=1.030 (1.005-1.025); Urine Cultured Indicated? NO; Urobilinogen 1 mg/dL (0-1)
[2021-11-15 06:04] VITALS: O2SAT 98
--- NOTE | 2021-11-15 06:30 | ERPHSYRPT ---
<RADHA PICKETT - Last Filed: 11/15/21 06:50> - History of Present Illness Time Seen by Provider: 11/15/21 03:45 Historian: patient, family Exam Limitations: no limitations Patient Subjective Stated Complaint: Pt states he has cardiac history. pt states he has been having nausea, vomiting, and diarrhea since since this am, chest pain since 9pm. Triage Nursing Assessment: pt alert and oriented, states he has chest ppain that he rates 8/10. Pt is grimacing and moaning. EGG shows NSR. Physician History: Patient is a 76-year-old white male who presents with a complaint of nausea vomiting and diarrhea which started approximately 24 hours ago. At 9 PM last night he developed severe chest pain which she rated 8 of 10. He has sharp substernal pain complains of shortness of breath with the pain he does have a history of coronary artery bypass grafting. Timing/Duration: yesterday Activities at Onset: none Quality: pressure, stabbing Location: epigastric Chest Pain Radiation: no radiation Severity of Pain-Max: severe Severity of Pain-Current: severe Associated Symptoms: nausea, vomiting, shortness of breath Prior Chest Pain/Cardiac Workup: angina Nitro Today/Relief: no nitro taken today Aspirin Treatment Today: 81 mg x 1 Allergies/Adverse Reactions: Penicillins Allergy (Verified 10/11/21 14:00) Sulfa (Sulfonamide Antibiotics) Allergy (Verified 10/11/21 14:00) Home Medications: Aspirin 81 gm Chew [Baby Aspirin 81 mg Chew] 1 tab PO DAILY 11/26/18 [History] Metoprolol Tartrate 25 mg [Lopressor 25MG Tab] 12.5 mg PO BID 11/26/18 [History] Trazodone HCl 50 mg [Desyrel 50 mg] 50 mg PO HS 11/26/18 [History] Rosuvastatin Calcium 40 mg PO 11/15/21 [History] Hx Tetanus, Diphtheria Vaccination/Date Given: No Hx Influenza Vaccination/Date Given: Yes Hx Pneumococcal Vaccination/Date Given: Yes Travel Risk - International Travel Have you traveled outside of the country in past 3 weeks: No - Coronavirus Screening Are you exhibiting any of the following symptoms?: No Close contact with a COVID-19 positive Pt in past 14-21 Days: No - Vaccine Status Have you recieved a Covid-19 vaccination: No - Review of Systems Constitutional: No Fever, No Chills Eyes: No Symptoms Ears, Nose, & Throat: No Symptoms Respiratory: Dyspnea, No Cough Cardiac: Chest Pain, No Edema, No Syncope Abdominal/Gastrointestinal: Nausea, Vomiting, Diarrhea, No Abdominal Pain Genitourinary Symptoms: No Dysuria Musculoskeletal: No Back Pain, No Neck Pain Skin: No Rash Neurological: No Dizziness, No Focal Weakness, No Sensory Changes Psychological: No Symptoms Endocrine: No Symptoms All Other Systems: Reviewed and Negative - Past Medical History Pertinent Past Medical History: Yes Neurological History: No Pertinent History ENT History: No Pertinent History Cardiac History: Coronary Artery Disease Respiratory History: No Pertinent History Endocrine Medical History: No Pertinent History Musculoskeletal History: No Pertinent History GI Medical History: No Pertinent History History: No Pertinent History Psycho-Social History: No Pertinent History Male Reproductive Disorders: No Pertinent History - Past Surgical History Past Surgical History: Yes Neuro Surgical History: No Pertinent History Cardiac: No Pertinent History Respiratory: No Pertinent History Gastrointestinal: No Pertinent History Genitourinary: No Pertinent History Musculoskeletal: No Pertinent History Male Surgical History: No Pertinent History Other Surgical History: 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 and Open heart on May 29 2018 - Social History Smoking Status: Never smoker How long have you smoked: years Exposure to second hand smoke: No Drug Use: none Patient Lives Alone: No Significant Family History: no pertinent family hx - Physical Exam General Appearance: moderate distress, alert Eye Exam: PERRL/EOMI, eyes nml inspection Ears, Nose, Throat Exam: normal ENT inspection, moist mucous membranes Neck Exam: normal inspection, non-tender, supple, full range of motion Respiratory Exam: normal breath sounds, lungs clear, No respiratory distress Cardiovascular Exam: regular rate/rhythm, normal heart sounds Gastrointestinal/Abdomen Exam: soft, tenderness (Epigastric area), No mass Back Exam: normal inspection, No CVA tenderness, No vertebral tenderness Extremity Exam: normal inspection, normal range of motion Neurologic Exam: alert, oriented x 3, cooperative, normal mood/affect, sensation nml, No motor deficits Skin Exam: normal color, warm, dry SpO2 Interpretation: normal SpO2: 98 O2 Delivery: Room Air - Course Nursing assessment & vital signs reviewed: Yes EKG Interpreted by Me: RATE (73), Sinus Rhythm, NORMAL AXIS, NORMAL INTERVALS, Q-wave (2 3 and aVF), Other (Questionable old inferior TN) - Radiology Exams Chest X-ray Interpretation: Interpreted by me, Negative (Except evidence of ster notomy) - CT Exams Abdomen/Pelvis CT Interpretation: Tele-radiologist Report - Progress Progress: improved Air Movement: good Blood Culture(s) Obtained: No Antibiotics given: No - Departure Departure Disposition: Home Clinical Impression: Biliary colic, Gastroenteritis, Atypical chest pain Condition: Stable Critical Care Time: No Referrals: HOSPITAL,'S [Primary Care Provider] - Follow up/PCP as directed (1-2 days for reevaluation and also for ultrasound gallbladder.) Instructions: Angina (DC), Gallstones (DC) Additional Instructions: Drink plenty of fluids to keep yourself well-hydrated. Take Zofran and Tylenol as needed. 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 Return to ER if again having intractable abdominal pain with vomiting or if having chest pain palpitations or shortness of breath. You need outpatient gallbladder ultrasound which can be scheduled by your primary care. Prescriptions: Ondansetron ODT 4 MG [Zofran Odt 4 mg] 1 ea PO QIDPRN PRN #7 tablet PRN Reason: n/v <NARCISO BARRAZA - Last Filed: 11/15/21 08:54> - Nursing Vital Signs Nursing Vital Signs: Initial Vital Signs Temperature 99.2 F 11/15/21 03:42 Pain Scale Pain Intensity 2 Ordered Tests: Active Orders 24 hr Category Date Time Status EKG-ER Only STAT Care 11/15/21 03:54 Active IV Insertion STAT Care 11/15/21 03:54 Active CHEST 1 VIEW (PORTABLE) Stat Exams 11/15/21 03:55 Completed CHEST WITH CONTRAST [CT] Stat Exams 11/15/21 05:02 Completed AMYLASE Stat Lab 11/15/21 04:12 Completed CBC W DIFF Stat Lab 11/15/21 04:12 Completed CMP Stat Lab 11/15/21 04:12 Completed D-DIMER QUANTITATIVE Stat Lab 11/15/21 04:12 Completed LIPASE Stat Lab 11/15/21 04:12 Completed Lactic Acid Stat Lab 11/15/21 04:10 Completed MAGNESIUM Stat Lab 11/15/21 04:12 Completed NT PRO BNP Stat Lab 11/15/21 04:12 Completed PROTIME WITH INR Stat Lab 11/15/21 04:12 Completed PTT Stat Lab 11/15/21 04:12 Completed TROPONIN Q3H Lab 11/15/21 04:12 Completed TROPONIN Q3H Lab 11/15/21 07:30 Completed TROPONIN Q3H Lab 11/15/21 10:00 Ordered TROPONIN Q3H Lab 11/15/21 13:00 Ordered TROPONIN Q3H Lab 11/15/21 16:00 Ordered UA W/RFX CULTURE Stat Lab 11/15/21 04:31 Completed Medication Summary Generic Name Dose Route Start Last Admin Trade Name Freq PRN Reason Stop Dose Admin Sodium Chloride 1,000 mls @ 100 mls/hr 11/15/21 04:00 11/15/21 04:07 Sodium Chloride 0.9% 1000 Ml IV 12/15/21 03:59 100 mls/hr .Q10H NUZHAT Administration Discontinued Medications Generic Name Dose Route Start Last Admin Trade Name Freq PRN Reason Stop Dose Admin Fentanyl Citrate 100 mcg 11/15/21 03:54 11/15/21 04:05 Fentanyl Citrate 100 Mcg/2 Ml* Vial IV 11/15/21 03:55 100 mcg STAT ONE Administration Fentanyl Citrate Confirm 11/15/21 04:04 Fentanyl Citrate 100 Mcg/2 Ml* Vial Administered 11/15/21 04:05 Dose 100 mcg .ROUTE .[employer] Lab/Rad Data: Laboratory Result Diagrams 11/15/21 04:12 11/15/21 04:12 Laboratory Results 11/15/21 11/15/21 11/15/21 Range/Units 07:30 04:31 04:12 WBC (4.0-10.5) x10^3/uL RBC (4.1-5.6) x10^6/uL Hgb (12.5-18.0) g/dL Hct (42-50) % MCV (78-100) fL MCH (26-32) pg MCHC (32-36) g/dL RDW (11.5-14.0) % Plt Count (150-450) x10^3/uL MPV (7.5-11.0) fL Gran % (36.0-66.0) % Immature Gran % (Auto) (0.00-0.4) % Nucleat RBC Rel Count (0.00-0.1) % Eos # (Auto) (0-0.5) x10^3/uL Immature Gran # (Auto) (0.00-0.03) x10^3u/L Absolute Lymphs (auto) (1.0-4.6) x10^3/uL Absolute Monos (auto) (0.0-1.3) x10^3/uL Absolute Nucleated RBC (0.00-0.01) x10^3u/L Lymphocytes % (24.0-44.0) % Monocytes % (0.0-12.0) % Eosinophils % (0.00-5.0) % Basophils % (0.0-0.4) % Absolute Granulocytes (1.4-6.9) x10^3/uL Basophils # (0-0.4) x10^3/uL PT (9.4-12.5) SECONDS INR (0.8-3.0) APTT (25.1-36.5) SECONDS D-Dimer (0.0-0.50) mg/L Sodium (137-145) mmol/L Potassium (3.5-5.1) mmol/L Chloride (98-107) mmol/L Carbon Dioxide (22-30) mmol/L Anion Gap (5-15) MEQ/L BUN (9-20) mg/dL Creatinine (0.66-1.25) mg/dL Estimated GFR ML/MIN Glucose (74-106) mg/dL Lactic Acid (0.4-2.0) Calcium (8.4-10.2) mg/dL Magnesium (1.6-2.3) mg/dL Total Bilirubin (0.2-1.3) mg/dL AST (17-59) U/L ALT (0-50) U/L Alkaline Phosphatase (38-126) U/L Troponin I 0.012 0.015 (0.000-0.034) ng/mL NT-Pro-B Natriuret Pep (0-1800) pg/mL Serum Total Protein (6.3-8.2) g/dL Albumin (3.5-5.0) g/dL Amylase (30-110) U/L Lipase (23-300) U/L Urinalys Dipstick Clnc MAIN LAB Urine Color YELLOW (YELLOW) Urine Appearance CLEAR (CLEAR) Urine pH 6.0 (5-6) Ur Specific Ashley >=1.030 (1.005-1.025) POC Urine Protein Conf NEGATIVE (Negative) Urine Ketones NEGATIVE (NEGATIVE) Urine Nitrite NEGATIVE (NEGATIVE) Urine Bilirubin NEGATIVE (NEGATIVE) Urine Urobilinogen 1 (0-1) mg/dL Urine Leukocytes NEGATIVE (NEGATIVE) Urine WBC (Auto) 0-2 (0-5) /HPF Urine RBC (Auto) NONE (0-2) /HPF U Epithel Cells (Auto) NONE (FEW) /HPF Urine Bacteria (Auto) RARE (NEGATIVE) /HPF Urine RBC NEGATIVE (0-5) Eagle/ul Urine Mucus (Auto) SLIGHT (NEGATIVE) /HPF Ur Culture Indicated? NO Urine Glucose NEGATIVE (NEGATIVE) mg/dL 11/15/21 11/15/21 11/15/21 Range/Units 04:12 04:12 04:12 WBC 8.6 (4.0-10.5) x10^3/uL RBC 4.46 (4.1-5.6) x10^6/uL Hgb 14.5 (12.5-18.0) g/dL Hct 42.2 (42-50) % MCV 94.6 (78-100) fL MCH 32.5 H (26-32) pg MCHC 34.4 (32-36) g/dL RDW 12.6 (11.5-14.0) % Plt Count 158 (150-450) x10^3/uL MPV 10.5 (7.5-11.0) fL Gran % 69.5 H (36.0-66.0) % Immature Gran % (Auto) 0.2 (0.00-0.4) % Nucleat RBC Rel Count 0.0 (0.00-0.1) % Eos # (Auto) 0.14 (0-0.5) x10^3/uL Immature Gran # (Auto) 0.02 (0.00-0.03) x10^3u/L Absolute Lymphs (auto) 1.32 (1.0-4.6) x10^3/uL Absolute Monos (auto) 1.08 (0.0-1.3) x10^3/uL Absolute Nucleated RBC 0.00 (0.00-0.01) x10^3u/L Lymphocytes % 15.4 L (24.0-44.0) % Monocytes % 12.6 H (0.0-12.0) % Eosinophils % 1.6 (0.00-5.0) % Basophils % 0.7 (0.0-0.4) % Absolute Granulocytes 5.93 (1.4-6.9) x10^3/uL Basophils # 0.06 (0-0.4) x10^3/uL PT 10.4 (9.4-12.5) SECONDS INR 0.98 (0.8-3.0) APTT 30.8 (25.1-36.5) SECONDS D-Dimer 3.82 H* (0.0-0.50) mg/L Sodium 138 (137-145) mmol/L Potassium 4.2 (3.5-5.1) mmol/L Chloride 106 (98-107) mmol/L Carbon Dioxide 23 (22-30) mmol/L Anion Gap 13.1 (5-15) MEQ/L BUN 15 (9-20) mg/dL Creatinine 1.24 (0.66-1.25) mg/dL Estimated GFR > 60.0 ML/MIN Glucose 111 H (74-106) mg/dL Lactic Acid (0.4-2.0) Calcium 10.2 (8.4-10.2) mg/dL Magnesium 1.8 (1.6-2.3) mg/dL Total Bilirubin 0.70 (0.2-1.3) mg/dL AST 22 (17-59) U/L ALT 12 (0-50) U/L Alkaline Phosphatase 100 (38-126) U/L Troponin I (0.000-0.034) ng/mL NT-Pro-B Natriuret Pep 628 (0-1800) pg/mL Serum Total Protein 6.4 (6.3-8.2) g/dL Albumin 3.7 (3.5-5.0) g/dL Amylase 73 (30-110) U/L Lipase 62 (23-300) U/L Urinalys Dipstick Clnc Urine Color (YELLOW) Urine Appearance (CLEAR) Urine pH (5-6) Ur Specific Ashley (1.005-1.025) POC Urine Protein Conf (Negative) Urine Ketones (NEGATIVE) Urine Nitrite (NEGATIVE) Urine Bilirubin (NEGATIVE) Urine Urobilinogen (0-1) mg/dL Urine Leukocytes (NEGATIVE) Urine WBC (Auto) (0-5) /HPF Urine RBC (Auto) (0-2) /HPF U Epithel Cells (Auto) (FEW) /HPF Urine Bacteria (Auto) (NEGATIVE) /HPF Urine RBC (0-5) Eagle/ul Urine Mucus (Auto) (NEGATIVE) /HPF Ur Culture Indicated? Urine Glucose (NEGATIVE) mg/dL 11/15/21 Range/Units 04:10 WBC (4.0-10.5) x10^3/uL RBC (4.1-5.6) x10^6/uL Hgb (12.5-18.0) g/dL Hct (42-50) % MCV (78-100) fL MCH (26-32) pg MCHC (32-36) g/dL RDW (11.5-14.0) % Plt Count (150-450) x10^3/uL MPV (7.5-11.0) fL Gran % (36.0-66.0) % Immature Gran % (Auto) (0.00-0.4) % Nucleat RBC Rel Count (0.00-0.1) % Eos # (Auto) (0-0.5) x10^3/uL Immature Gran # (Auto) (0.00-0.03) x10^3u/L Absolute Lymphs (auto) (1.0-4.6) x10^3/uL Absolute Monos (auto) (0.0-1.3) x10^3/uL Absolute Nucleated RBC (0.00-0.01) x10^3u/L Lymphocytes % (24.0-44.0) % Monocytes % (0.0-12.0) % Eosinophils % (0.00-5.0) % Basophils % (0.0-0.4) % Absolute Granulocytes (1.4-6.9) x10^3/uL Basophils # (0-0.4) x10^3/uL PT (9.4-12.5) SECONDS INR (0.8-3.0) APTT (25.1-36.5) SECONDS D-Dimer (0.0-0.50) mg/L Sodium (137-145) mmol/L Potassium (3.5-5.1) mmol/L Chloride (98-107) mmol/L Carbon Dioxide (22-30) mmol/L Anion Gap (5-15) MEQ/L BUN (9-20) mg/dL Creatinine (0.66-1.25) mg/dL Estimated GFR ML/MIN Glucose (74-106) mg/dL Lactic Acid 1.2 (0.4-2.0) Calcium (8.4-10.2) mg/dL Magnesium (1.6-2.3) mg/dL Total Bilirubin (0.2-1.3) mg/dL AST (17-59) U/L ALT (0-50) U/L Alkaline Phosphatase (38-126) U/L Troponin I (0.000-0.034) ng/mL NT-Pro-B Natriuret Pep (0-1800) pg/mL Serum Total Protein (6.3-8.2) g/dL Albumin (3.5-5.0) g/dL Amylase (30-110) U/L Lipase (23-300) U/L Urinalys Dipstick Clnc Urine Color (YELLOW) Urine Appearance (CLEAR) Urine pH (5-6) Ur Specific Ashley (1.005-1.025) POC Urine Protein Conf (Negative) Urine Ketones (NEGATIVE) Urine Nitrite (NEGATIVE) Urine Bilirubin (NEGATIVE) Urine Urobilinogen (0-1) mg/dL Urine Leukocytes (NEGATIVE) Urine WBC (Auto) (0-5) /HPF Urine RBC (Auto) (0-2) /HPF U Epithel Cells (Auto) (FEW) /HPF Urine Bacteria (Auto) (NEGATIVE) /HPF Urine RBC (0-5) Eagle/ul Urine Mucus (Auto) (NEGATIVE) /HPF Ur Culture Indicated? Urine Glucose (NEGATIVE) mg/dL - Progress Progress: re-examined Progress Note: 11/15/21 08:50 I resumed care at shift change from Dr. Pickett with pending second troponin. Patient presented with epigastric/retrosternal pain with nausea vomiting diarrhea. His diarrhea and nausea vomiting is improved. During my evaluation patient is pain-free. Does report having off-and-on nausea vomiting with upper abdominal pain going on for quite some time. Grossly unremarkable work-up with including second troponin. Negative PE study but did show some distended gallbladder. Dr. Pickett has ordered ultrasound but no ultrasound services are available. During my evaluation patient has negative Desir sign and no tenderness in the abdomen. I believe patient has biliary colic along with diarrhea which could be viral etiology gastroenteritis. Patient has a history of CABG and is chest pain-free and his pain was more in the epigastric area and its been going on since yesterday and 2 negative troponin rules it out. 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 Discussed signs symptoms of worsening needing return to ER which he seems understanding. Counseled pt/family regarding: lab results, diagnosis, need for follow-up, rad results
--- NOTE | 2021-11-15 08:04 | XRAY ---
Indication: Chest pain, short of breath, dizziness, diarrhea, nausea, and vomiting. Elevated d-dimer. Multiple contiguous axial images obtained through the chest using 80 cc Isovue 370 contrast and PE protocol. Comparison: October 11, 2021. Good opacification of the pulmonary arteries to include the lobar and segmental branches. No pulmonary embolus. Heart not enlarged again with aortic valve replacement. Aorta remains mildly arteriosclerotic without aneurysm/dissection. No pathologic mediastinal/hilar lymphadenopathy. Lungs again demonstrates diffuse pulmonary emphysema, 4 mm right middle fissure noncalcified nodule, and 5 mm right base calcified granuloma. No new pulmonary mass, infiltrate, effusion, or pneumothorax. Bony thorax intact again with mild osteopenia, mild degenerative changes throughout the spine, and sternotomy wires. Limited upper abdomen demonstrates partially visualized distended gallbladder without gallstones. Impression: 1. Negative pulmonary embolus. No new/acute cardiopulmonary abnormalities. 2. Partially visualized distended gallbladder. Sonogram may yield further information if clinically warranted. 3. Chronic findings including pulmonary emphysema, calcified/noncalcified right lung granulomas, and aortic valve replacement surgery. Comment: Preliminary interpretation made by [facility]. No critical discrepancy.
--- NOTE | 2021-11-15 08:04 | XRAY ---
Indication: Chest pain. Comparison: October 11, 2021. Portable chest remains hyperinflated and clear with incidental right base calcified granuloma. Heart not enlarged again with aortic valve replacement. Bony thorax intact again with mild osteopenia and degenerative changes. Impression: Continued nonacute hyperinflated chest with chronic features.
[2021-11-15 09:09] VITALS: BP 128/86; PULSE 70
== END 2021-11-15 09:14 | disposition home or self-care (01) ==
LOC: ED 03:41
DX: K80.50 Calculus of bile duct without cholangitis or cholecystitis without obstruction (principal); K52.9 Noninfective gastroenteritis and colitis, unspecified; R07.89 Other chest pain; R11.2 Nausea with vomiting, unspecified; R06.02 Shortness of breath; I25.10 Atherosclerotic heart disease of native coronary artery without angina pectoris; Z79.899 Other long term (current) drug therapy; Z28.310 Unvaccinated for COVID-19
CPT/HCPCS: 36000; 36415; 71045; 71260; 80053; 81015; 82150; 83605; 83690; 83735; 83880; 84484; 85025; 85379; 85610; 85730; 93005; 96374; 99284; J3010

== ENCOUNTER 2022-03-04 09:36 | Emergency (ER) | payer OTHER ==
[2022-03-04] MEDS ORDERED: SUBLIMAZE 100 MCG/2 ML IV ONE (10:19)
[2022-03-04] MEDS ORDERED: Zofran 4 MG/2 ML VIAL IV ONE (10:19)
[2022-03-04 10:31] LABS: Basophil (Absolute #) 0.06 x10^3/uL (0-0.4); Eosinophil % 3.1 % (0.00-5.0); Eosinophil (Absolute #) 0.18 x10^3/uL (0-0.5); Hemoglobin 14.8 g/dL (12.5-18.0); Lymphocyte (Absolute #) 0.91 x10^3/uL (1.0-4.6); Lymphocytes % 15.7 % (24.0-44.0); Mean Cell Volume 96.8 fL (78-100); Mean Corpuscular Hemoglobin 33.3 pg (26-32); Mean Corpuscular Hgb Concent. 34.4 g/dL (32-36); Mean Platelet Volume 10.9 fL (7.5-11.0); Monocyte (Absolute #) 0.93 x10^3/uL (0.0-1.3); Neutrophil % 63.9 % (36.0-66.0); Platelet Count 172 x10^3/uL (150-450); Red Blood Count 4.44 x10^6/uL (4.1-5.6); Red Cell Distribution Width 12.2 % (11.5-14.0); White Blood Count 5.8 x10^3/uL (4.0-10.5)
--- NOTE | 2022-03-04 10:32 | ERPHSYRPT ---
- History of Present Illness Time Seen by Provider: 03/04/22 10:17 Historian: patient Exam Limitations: no limitations Patient Subjective Stated Complaint: pt here for khushi, flank pain that radiates to lower abd. blood in urine off and on for 2 months, had a cystoscope 2 weeks ago and is [place] scans oct 4 at [place] Triage Nursing Assessment: pt alert, resp easy, face mask in place, skin w/d/p, abd sift tender to palpate, Physician History: 76-year-old male with history of hypertension, hyperlipidemia, coronary artery disease status post CABG, recently diagnosed bladder cancer, having off-and-on hematuria presented in the ER with increasing pain bilateral flank radiating to the lower abdomen, moderate to severe sharp nature with associated nausea and 1 episode of vomiting. This has been going on for almost last 5 days but worsening since yesterday. Patient is scheduled for dedicated renal CT early next week. Also reports having chills and subjective feeling of fever and chills/sweating since yesterday. Timing/Duration: day(s) (5), intermittent, gradual onset, worse Quality: sharpness Abdominal Pain Onset Location: suprapubic, flank Pain Radiation: groin Severity of Pain-Max: severe Severity of Pain-Current: severe Modifying Factors: Worsens With: movement, palpation, position Associated Symptoms: nausea, vomiting Previous symptoms: same symptoms as today Allergies/Adverse Reactions: Penicillins Allergy (Verified 03/04/22 09:50) Sulfa (Sulfonamide Antibiotics) Allergy (Verified 03/04/22 09:50) Home Medications: Aspirin 81 gm Chew [Baby Aspirin 81 mg Chew] 1 tab PO DAILY 11/26/18 [History] Metoprolol Tartrate 25 mg [Lopressor 25MG Tab] 12.5 mg PO BID 11/26/18 [History] Trazodone HCl 50 mg [Desyrel 50 mg] 50 mg PO HS 11/26/18 [History] Rosuvastatin Calcium 40 mg PO DAILY 11/15/21 [History] Hx Tetanus, Diphtheria Vaccination/Date Given: No Hx Influenza Vaccination/Date Given: Yes Hx Pneumococcal Vaccination/Date Given: Yes Immunizations Up to Date: Yes Travel Risk - International Travel Have you traveled outside of the country in past 3 weeks: No - Coronavirus Screening Are you exhibiting any of the following symptoms?: No - Vaccine Status Have you recieved a Covid-19 vaccination: No - Review of Systems Constitutional: Fever, Chills, Fatigue, Weakness Eyes: No Symptoms Ears, Nose, & Throat: No Symptoms Respiratory: No Symptoms Cardiac: No Symptoms Abdominal/Gastrointestinal: Abdominal Pain, Nausea, Vomiting Genitourinary Symptoms: Dysuria, Frequency, Hematuria, Flank Pain Musculoskeletal: Back Pain Skin: No Symptoms Neurological: No Symptoms Psychological: No Symptoms Endocrine: No Symptoms Hematologic/Lymphatic: No Symptoms Immunological/Allergic: No Symptoms - Past Medical History Pertinent Past Medical History: Yes Neurological History: No Pertinent History ENT History: No Pertinent History Cardiac History: Coronary Artery Disease Respiratory History: No Pertinent History Endocrine Medical History: No Pertinent History Musculoskeletal History: No Pertinent History GI Medical History: No Pertinent History History: No Pertinent History Psycho-Social History: No Pertinent History Male Reproductive Disorders: No Pertinent History - Past Surgical History Past Surgical History: Yes Neuro Surgical History: No Pertinent History Cardiac: No Pertinent History Respiratory: No Pertinent History Gastrointestinal: No Pertinent History Genitourinary: No Pertinent History Musculoskeletal: No Pertinent History Male Surgical History: No Pertinent History Other Surgical History: 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 and Open heart on D 2017 - Social History Smoking Status: Former smoker How long have you smoked: years Exposure to second hand smoke: No Drug Use: none Patient Lives Alone: No Significant Family History: no pertinent family hx - Nursing Vital Signs Nursing Vital Signs: Initial Vital Signs Pulse Rate 59 L 03/04/22 10:55 Respiratory Rate 15 03/04/22 10:55 Blood Pressure 116/68 03/04/22 10:55 O2 Sat by Pulse Oximetry 96 03/04/22 10:55 Pain Scale Pain Intensity 4 - Physical Exam General Appearance: no apparent distress, alert Eye Exam: PERRL/EOMI Ears, Nose, Throat Exam: normal ENT inspection Neck Exam: normal inspection, supple, full range of motion Respiratory Exam: normal breath sounds, lungs clear Cardiovascular Exam: regular rate/rhythm, normal heart sounds Gastrointestinal/Abdomen Exam: soft, normal bowel sounds, tenderness (Bilateral flanks, lower quadrant, suprapubic area), guarding Back Exam: normal inspection, normal range of motion, CVA tenderness (Bilateral) Extremity Exam: normal inspection, normal range of motion Neurologic Exam: alert, oriented x 3, cooperative Skin Exam: normal color SpO2 Interpretation: normal SpO2: 95 O2 Delivery: Room Air Ordered Tests: Active Orders 24 hr Category Date Time Status IV Insertion STAT Care 03/04/22 10:19 Active NPO (ED) STAT Care 03/04/22 10:19 Active ABDOMEN AND PELVIS W/0 CONTRAS [CT] Stat Exams 03/04/22 10:19 Completed CBC W DIFF Stat Lab 03/04/22 10:30 Completed CMP Stat Lab 03/04/22 10:30 Completed LIPASE Stat Lab 03/04/22 10:30 Completed Lactic Acid Stat Lab 03/04/22 10:30 Completed UA W/RFX CULTURE Stat Lab 03/04/22 10:30 Completed Medication Summary Discontinued Medications Generic Name Dose Route Start Last Admin Trade Name Arielle PRN Reason Stop Dose Admin Fentanyl Citrate 50 mcg 03/04/22 10:19 03/04/22 10:40 Fentanyl Citrate 100 Mcg/2 Ml* Vial IV 03/04/22 10:20 50 mcg STAT ONE Administration Fentanyl Citrate Confirm 03/04/22 10:38 Fentanyl Citrate 100 Mcg/2 Ml* Vial Administered 03/04/22 10:39 Dose 100 mcg .ROUTE .STK-MED ONE Morphine Sulfate 4 mg 03/04/22 12:09 03/04/22 12:14 Morphine Sulfate 4 Mg/Ml Injection IV 03/04/22 12:10 4 mg STAT ONE Administration Morphine Sulfate Confirm 03/04/22 12:13 Morphine Sulfate 4 Mg/Ml Injection Administered 03/04/22 12:14 Dose 4 mg .ROUTE .STK-MED ONE Ondansetron HCl 4 mg 03/04/22 10:19 03/04/22 10:40 Ondansetron Hcl 4 Mg/2 Ml Vial IV 03/04/22 10:20 4 mg STAT ONE Administration Ondansetron HCl Confirm 03/04/22 10:37 Ondansetron Hcl 4 Mg/2 Ml Vial Administered 03/04/22 10:38 Dose 4 mg .ROUTE .STK-MED ONE Lab/Rad Data: Laboratory Result Diagrams 03/04/22 10:30 03/04/22 10:30 Laboratory Results 03/04/22 03/04/22 03/04/22 Range/Units 10:30 10:30 10:30 WBC (4.0-10.5) x10^3/uL RBC (4.1-5.6) x10^6/uL Hgb (12.5-18.0) g/dL Hct (42-50) % MCV (78-100) fL MCH (26-32) pg MCHC (32-36) g/dL RDW (11.5-14.0) % Plt Count (150-450) x10^3/uL MPV (7.5-11.0) fL Gran % (36.0-66.0) % Immature Gran % (Auto) (0.00-0.4) % Nucleat RBC Rel Count (0.00-0.1) % Eos # (Auto) (0-0.5) x10^3/uL Immature Gran # (Auto) (0.00-0.03) x10^3u/L Absolute Lymphs (auto) (1.0-4.6) x10^3/uL Absolute Monos (auto) (0.0-1.3) x10^3/uL Absolute Nucleated RBC (0.00-0.01) x10^3u/L Lymphocytes % (24.0-44.0) % Monocytes % (0.0-12.0) % Eosinophils % (0.00-5.0) % Basophils % (0.0-0.4) % Absolute Granulocytes (1.4-6.9) x10^3/uL Basophils # (0-0.4) x10^3/uL Sodium 139 (137-145) mmol/L Potassium 4.3 (3.5-5.1) mmol/L Chloride 107 (98-107) mmol/L Carbon Dioxide 24 (22-30) mmol/L Anion Gap 11.9 (5-15) MEQ/L BUN 13 (9-20) mg/dL Creatinine 1.12 (0.66-1.25) mg/dL Estimated GFR > 60.0 ML/MIN Glucose 116 H (74-106) mg/dL Lactic Acid 1.5 (0.4-2.0) Calcium 9.2 (8.4-10.2) mg/dL Total Bilirubin 0.60 (0.2-1.3) mg/dL AST 21 (17-59) U/L ALT 13 (0-50) U/L Alkaline Phosphatase 107 (38-126) U/L Serum Total Protein 7.2 (6.3-8.2) g/dL Albumin 4.4 (3.5-5.0) g/dL Lipase 40 (23-300) U/L Urinalys Dipstick Clnc MAIN LAB Urine Color YELLOW (YELLOW) Urine Appearance CLEAR (CLEAR) Urine pH 6.0 (5-6) Ur Specific [place] 1.025 (1.005-1.025) POC Urine Protein Conf NEGATIVE (Negative) Urine Ketones NEGATIVE (NEGATIVE) Urine Nitrite NEGATIVE (NEGATIVE) Urine Bilirubin NEGATIVE (NEGATIVE) Urine Urobilinogen 2 (0-1) mg/dL Urine Leukocytes NEGATIVE (NEGATIVE) Urine WBC (Auto) NONE (0-5) /HPF Urine RBC (Auto) NONE (0-2) /HPF U Epithel Cells (Auto) NONE (FEW) /HPF Urine Bacteria (Auto) RARE (NEGATIVE) /HPF Urine RBC NEGATIVE (0-5) Eagle/ul Urine Mucus (Auto) SLIGHT (NEGATIVE) /HPF Ur Culture Indicated? NO Urine Glucose NEGATIVE (NEGATIVE) mg/dL 03/04/22 Range/Units 10:30 WBC 5.8 (4.0-10.5) x10^3/uL RBC 4.44 (4.1-5.6) x10^6/uL Hgb 14.8 (12.5-18.0) g/dL Hct 43.0 (42-50) % MCV 96.8 (78-100) fL MCH 33.3 H (26-32) pg MCHC 34.4 (32-36) g/dL RDW 12.2 (11.5-14.0) % Plt Count 172 (150-450) x10^3/uL MPV 10.9 (7.5-11.0) fL Gran % 63.9 (36.0-66.0) % Immature Gran % (Auto) 0.3 (0.00-0.4) % Nucleat RBC Rel Count 0.0 (0.00-0.1) % Eos # (Auto) 0.18 (0-0.5) x10^3/uL Immature Gran # (Auto) 0.02 (0.00-0.03) x10^3u/L Absolute Lymphs (auto) 0.91 L (1.0-4.6) x10^3/uL Absolute Monos (auto) 0.93 (0.0-1.3) x10^3/uL Absolute Nucleated RBC 0.00 (0.00-0.01) x10^3u/L Lymphocytes % 15.7 L (24.0-44.0) % Monocytes % 16.0 H (0.0-12.0) % Eosinophils % 3.1 (0.00-5.0) % Basophils % 1.0 (0.0-0.4) % Absolute Granulocytes 3.70 (1.4-6.9) x10^3/uL Basophils # 0.06 (0-0.4) x10^3/uL Sodium (137-145) mmol/L Potassium (3.5-5.1) mmol/L Chloride (98-107) mmol/L Carbon Dioxide (22-30) mmol/L Anion Gap (5-15) MEQ/L BUN (9-20) mg/dL Creatinine (0.66-1.25) mg/dL Estimated GFR ML/MIN Glucose (74-106) mg/dL Lactic Acid (0.4-2.0) Calcium (8.4-10.2) mg/dL Total Bilirubin (0.2-1.3) mg/dL AST (17-59) U/L ALT (0-50) U/L Alkaline Phosphatase (38-126) U/L Serum Total Protein (6.3-8.2) g/dL Albumin (3.5-5.0) g/dL Lipase (23-300) U/L Urinalys Dipstick Clnc Urine Color (YELLOW) Urine Appearance (CLEAR) Urine pH (5-6) Ur Specific [place] (1.005-1.025) POC Urine Protein Conf (Negative) Urine Ketones (NEGATIVE) Urine Nitrite (NEGATIVE) Urine Bilirubin (NEGATIVE) Urine Urobilinogen (0-1) mg/dL Urine Leukocytes (NEGATIVE) Urine WBC (Auto) (0-5) /HPF Urine RBC (Auto) (0-2) /HPF U Epithel Cells (Auto) (FEW) /HPF Urine Bacteria (Auto) (NEGATIVE) /HPF Urine RBC (0-5) Eagle/ul Urine Mucus (Auto) (NEGATIVE) /HPF Ur Culture Indicated? Urine Glucose (NEGATIVE) mg/dL - Progress Progress: improved, re-examined Progress Note: 03/04/22 12:09 76 years old is evaluated in the ER for flank pain. Given symptomatic treatment for pain, on reevaluation feeling much better. Broad work-up was done with normal white count, grossly unremarkable chemistries, no acute UTI. CT abdomen pelvis negative for any acute abdominal pelvic findings. Does have right-sided renal cyst, degenerative changes of the back and partially distended urinary bladder with patient going for further evaluation with urology next week. I do not know the exact cause of his pain but have ruled out all the major emergencies. We will give him symptomatic treatment for pain and outpatient follow-up. Discussed signs symptoms of worsening needing return to ER which he seems understanding. Counseled pt/family regarding: lab results, diagnosis, need for follow-up, rad results - Departure Departure Disposition: Home Clinical Impression: Bilateral flank pain Condition: Stable Critical Care Time: No Referrals: [facility]OS[facility],'[facility] [Primary Care Provider] - Follow up/PCP as directed (As scheduled next week) Instructions: Flank Pain Additional Instructions: Take pain medications only as needed. Follow-up with your primary care and urology for reevaluation. Return to ER for intractable pain/vomiting/fever chills/difficulty urination etc. Prescriptions: Hydrocodone/Acetaminophen [Hydrocodone-Acetamin 5-325 mg] 1 tab PO Q6HPRN PRN 3 Days #12 tablet MDD 4 PRN Reason: Pain
[2022-03-04] MEDS ORDERED: Zofran 4 MG/2 ML VIAL ONE (10:37)
[2022-03-04] MEDS ORDERED: SUBLIMAZE 100 MCG/2 ML ONE (10:38)
[2022-03-04 10:45] LABS: ALBUMIN 4.4 g/dL (3.5-5.0); ALKALINE PHOSPHATASE 107 U/L (38-126); ANION GAP 11.9 MEQ/L (5-15); BLOOD UREA NITROGEN 13 mg/dL (9-20); CHLORIDE 107 mmol/L (98-107); Calcium 9.2 mg/dL (8.4-10.2); Carbon Dioxide 24 mmol/L (22-30); Creatinine 1 1.12 mg/dL (0.66-1.25); EST GLOMERULAR FILTRATION RATE > 60.0 ML/MIN; Glucose 116 mg/dL (74-106); LIPASE 40 U/L (23-300); Potassium 4.3 mmol/L (3.5-5.1); SGOT/AST 21 U/L (17-59); SGPT/ALT 13 U/L (0-50); SODIUM 139 mmol/L (137-145); Total Protein 7.2 g/dL (6.3-8.2)
[2022-03-04 10:54] LABS: Bacteria RARE /HPF (NEGATIVE); Mucus SLIGHT /HPF (NEGATIVE)
[2022-03-04 10:55] LABS: Appearance CLEAR (CLEAR); Bilirubin NEGATIVE (NEGATIVE); Glucose NEGATIVE (NEGATIVE); Ketones NEGATIVE (NEGATIVE); Nitrite NEGATIVE (NEGATIVE); Protein,Urine Dip NEGATIVE (Negative); RBC NEGATIVE Ery/ul (0-5); Specific Gravity 1.025 (1.005-1.025); Urine Cultured Indicated? NO; Urobilinogen 2 mg/dL (0-1)
[2022-03-04 10:56] LABS: Dipstick done @ ? MAIN LAB
[2022-03-04 10:57] VITALS: PULSE 59
--- NOTE | 2022-03-04 11:43 | XRAY ---
Exam: CT of the abdomen and pelvis without IV contrast from 03/04/2022. CTDI: 10.05 mGy Comparison: None. Indication: 76-year-old male with bilateral flank pain with hematuria for 5 days becoming increasingly worse overnight and into this morning. Technique: Non-IV contrast axial images were obtained through the abdomen and pelvis without IV contrast. Reconstructed coronal and sagittal images were created and reviewed. Findings: The CT top ironer images reveal evidence of prior aortic valve replacement, CABG, and midline sternotomy. The visualized lung bases are clear, except for a calcified granuloma at the posterior lateral right lung base. There is equivocal evidence of the minimal sliding hiatal hernia on coronal images #87 and #88. Assessment of the solid organs is limited on a non-IV contrast study only. The liver is not enlarged. I see no gross sizable liver mass or intrahepatic biliary duct distention. The gallbladder is distended and reveals no dense calcifications within it. The spleen is of normal size and reveals no mass. The pancreas reveals no focal mass enlargement, pancreatic duct distention, or pancreatic calcifications. The adrenal glands are of unremarkable size and configuration. The kidneys appear of average size. No renal calculi or evidence of hydronephrosis is seen. There is a 4.0 cm x 3.6 cm in diameter exophytic cyst adjacent to the lower pole of the right kidney measuring +11.0 Hounsfield units. In the adjacent region, there is a smaller 0.9 cm to 1.0 cm mass on axial image #55 which probably represents a second tiny exophytic cyst. No other renal mass is seen. I note minimal arteriosclerotic vascular calcification within the renal arteries. Both ureters appear of normal diameter and reveal no definite ureterolith. Moderate/marked arteriosclerotic vascular calcification is seen within the abdominal aorta, iliac arteries, and common femoral arteries. It appears the patient has probably had a prior bilateral vascular graft procedure between the distal abdominal aorta and the proximal femoral arteries. Correlate with surgical history. I see no evidence of abnormal retroperitoneal lymphadenopathy. There is no free intraperitoneal air or bowel containing ventral hernia. There appears to be some subtle weakness and possibly minimal herniation of intraperitoneal fat superior to the umbilicus in the midline. Scattered stool is seen throughout the colon. I see no evidence of bowel obstruction. There appears to be a pill density within a small bowel loop within the lower left hemiabdomen on axial image #63. There does appear to be moderate diverticulosis within the distal descending colon and moderate to marked diverticulosis within the sigmoid colon. I see no findings to suggest acute diverticulitis. There is no evidence of appendicitis within the right lower quadrant. The urinary bladder is incompletely distended. The urinary bladder wall is slightly prominent. This could be due to incomplete distention of the urinary bladder, some bladder wall hypertrophy, or cystitis. Correlate clinically. A discrete urinary bladder mass is not seen. If hematuria persists, further evaluation with cystoscopy may be helpful. The seminal vesicles appear symmetric. The prostate gland measures about 4.4 cm in width and 3.5 cm in AP depth on axial image 111 suggesting mild enlargement. Minimal eccentric prostate gland calcification is seen. There are a few calcified phleboliths within the lower pelvis. No other pelvic mass, abnormal pelvic lymphadenopathy, or free intraperitoneal fluid is seen. There do appear to be bilateral fat-containing inguinal hernias, slightly larger than the left than right. The groin regions reveal no significant abnormality. The skeleton reveals marked degenerative disc disease at L5-S1 with about 1 cm anterior subluxation of L5 over S1 with bilateral spondylolysis of L5. Otherwise, the vertebral body heights and remainder of the lumbar interspaces are adequately maintained. Some mild to moderate anterior lateral vertebral endplate spurs are seen within the visualized visualized lower thoracolumbar spine. I see no acute fracture or aggressive bone lesion. Impression: 1. I see no evidence of renal/ureteral calculi, hydronephrosis, or obstructive uropathy. 2. I do note mild bilateral perirenal stranding and a couple exophytic cysts adjacent to the inferior pole of the right kidney. 3. The urinary bladder is only partially distended which probably accentuates the urinary bladder wall some. See above. If hematuria persists, I would suggest correlation with cystoscopy, as well as perhaps a post IV contrast CT of the abdomen and pelvis. 4. There is moderate to marked diverticulosis of the distal descending and sigmoid colon without evidence of associated diverticulitis. 5. No evidence of appendicitis is seen. I do note scattered stool throughout the colon. 6. Equivocal evidence of minimal sliding hiatal hernia, moderate to marked atherosclerotic vascular disease, bilateral fat-containing inguinal hernias (left larger than right), marked degenerative disc disease L5-S1, 1 cm anterior spondylolisthesis of L5 over S1, and bilateral L5 spondylolysis are seen.
[2022-03-04] MEDS ORDERED: MORPHINE SULFATE 4 MG INJ IV ONE (12:09)
[2022-03-04] MEDS ORDERED: MORPHINE SULFATE 4 MG INJ ONE (12:13)
[2022-03-04 12:29] VITALS: BP 111/67
[2022-03-04 12:32] VITALS: O2SAT 95
== END 2022-03-04 12:42 | disposition home or self-care (01) ==
LOC: ED 09:36
DX: R10.9 Unspecified abdominal pain (principal); R11.2 Nausea with vomiting, unspecified; I10 Essential (primary) hypertension; E78.5 Hyperlipidemia, unspecified; C67.9 Malignant neoplasm of bladder, unspecified; Z79.899 Other long term (current) drug therapy; Z28.310 Unvaccinated for COVID-19; Z79.891 Long term (current) use of opiate analgesic
CPT/HCPCS: 36000; 36415; 74176; 80053; 81015; 83605; 83690; 85025; 96374; 96375; 99284; J2270; J2405; J3010

== ENCOUNTER 2022-06-01 12:40 | Emergency (ER) | payer OTHER ==
[2022-06-01] MEDS ORDERED: Zofran 4 MG/2 ML VIAL IV ONE (12:58)
[2022-06-01] MEDS ORDERED: Sodium Chloride 0.9% 1000 ML 1,000 ML IV STA (12:58)
[2022-06-01] MEDS ORDERED: Hydromorphone 1 mg/ml Injection IV ONE (12:58)
[2022-06-01] MEDS ORDERED: Hydromorphone 1 mg/ml Injection ONE (13:23)
[2022-06-01] MEDS ORDERED: Zofran 4 MG/2 ML VIAL ONE (13:23)
[2022-06-01] MEDS ORDERED: Sodium Chloride 0.9% 1000 ML 1,000 ML ONE (13:23)
[2022-06-01 13:26] LABS: Basophil (Absolute #) 0.04 x10^3/uL (0-0.4); Eosinophil % 2.6 % (0.00-5.0); Eosinophil (Absolute #) 0.17 x10^3/uL (0-0.5); Hematocrit 45.8 % (42-50); Lymphocyte (Absolute #) 1.27 x10^3/uL (1.0-4.6); Lymphocytes % 19.4 % (24.0-44.0); Mean Cell Volume 94.2 fL (78-100); Mean Corpuscular Hemoglobin 32.9 pg (26-32); Mean Corpuscular Hgb Concent. 34.9 g/dL (32-36); Mean Platelet Volume 10.3 fL (7.5-11.0); Monocyte (Absolute #) 0.75 x10^3/uL (0.0-1.3); Monocytes % 11.5 % (0.0-12.0); Neutrophil % 65.7 % (36.0-66.0); Platelet Count 185 x10^3/uL (150-450); Red Blood Count 4.86 x10^6/uL (4.1-5.6); Red Cell Distribution Width 12.2 % (11.5-14.0); White Blood Count 6.5 x10^3/uL (4.0-10.5)
--- NOTE | 2022-06-01 13:37 | ERPHSYRPT ---
- History of Present Illness Time Seen by Provider: 06/01/22 12:55 Historian: patient, family Exam Limitations: no limitations Patient Subjective Stated Complaint: pt reports "I started having diarrhea last night and have been vomiting since 4am this morning. My stomach was hurting at about a 4 and now my stomach pain is a 8. I had this happen about 6 or 7 months ago and they said my gallbladder was having spasms but [facility]." Triage Nursing Assessment: Pt wheeled back to cot by spouse due to complaints of abdominal pain, nausea, vomiting, diarrhea and dizziness. Alert and oriented x3. No apparent respiratory distress. Pt reports he started vomiting at approx 0400 this morning and hasn't been able to keep anything down. Active bowel sounds in all four quads. Epigastric pain reported to be 8/10. Tender in upper quadrants of abdomen upon palpation. Physician History: Patient is a 77-year-old white male who presents with a complaint of nausea vomiting and abdominal pain since 4 AM this date. His pain started in the epigastric area it is progressed to include vomiting and diarrhea as well. 6 to 7 months ago he had a similar episode had a gallbladder work-up which showed gallbladder disease apparently. [facility] not refer him to a GI or to surgery apparently. Timing/Duration: hour(s) (9), constant Activities at Onset: sleep Quality: cramping, stabbing Abdominal Pain Onset Location: epigastric Pain Radiation: RUQ Severity of Pain-Max: severe Severity of Pain-Current: severe Modifying Factors: Improves With: nothing Associated Symptoms: diarrhea, heartburn, loss of appetite, nausea, vomiting Previous symptoms: same symptoms as today Allergies/Adverse Reactions: Penicillins Allergy (Verified 06/01/22 12:48) Sulfa (Sulfonamide Antibiotics) Allergy (Verified 06/01/22 12:48) Home Medications: Aspirin 81 gm Chew [Baby Aspirin 81 mg Chew] 1 tab PO DAILY 11/26/18 [History] Metoprolol Tartrate 25 mg [Lopressor 25MG Tab] 12.5 mg PO BID 11/26/18 [History] Trazodone HCl 50 mg [Desyrel 50 mg] 50 mg PO HS 11/26/18 [History] Rosuvastatin Calcium 40 mg PO DAILY 11/15/21 [History] Tamsulosin HCl 0.4 mg [Flomax 0.4 MG] 0.4 mg PO DAILY 06/01/22 [History] Hx Tetanus, Diphtheria Vaccination/Date Given: Yes Hx Influenza Vaccination/Date Given: Yes Hx Pneumococcal Vaccination/Date Given: Yes Immunizations Up to Date: Yes Travel Risk - International Travel Have you traveled outside of the country in past 3 weeks: No - Coronavirus Screening Are you exhibiting any of the following symptoms?: Yes Symptoms: Vomiting/Diarrhea Close contact with a COVID-19 positive Pt in past 14-21 Days: No - Vaccine Status Have you recieved a Covid-19 vaccination: No - Review of Systems Constitutional: No Fever, No Chills Eyes: No Symptoms Ears, Nose, & Throat: No Symptoms Respiratory: No Cough, No Dyspnea Cardiac: No Chest Pain, No Edema, No Syncope Abdominal/Gastrointestinal: Abdominal Pain, Nausea, Vomiting, Diarrhea Genitourinary Symptoms: No Dysuria Musculoskeletal: No Back Pain, No Neck Pain Skin: No Rash Neurological: No Dizziness, No Focal Weakness, No Sensory Changes Psychological: No Symptoms Endocrine: No Symptoms Hematologic/Lymphatic: No Symptoms Immunological/Allergic: No Symptoms All Other Systems: Reviewed and Negative - Past Medical History Pertinent Past Medical History: Yes Neurological History: No Pertinent History ENT History: No Pertinent History Cardiac History: Coronary Artery Disease, Hypertension Respiratory History: No Pertinent History Endocrine Medical History: No Pertinent History Musculoskeletal History: No Pertinent History GI Medical History: No Pertinent History History: Bladder Cancer Psycho-Social History: No Pertinent History Male Reproductive Disorders: No Pertinent History - Past Surgical History Past Surgical History: Yes Neuro Surgical History: No Pertinent History Cardiac: No Pertinent History Respiratory: No Pertinent History Gastrointestinal: No Pertinent History Genitourinary: No Pertinent History Musculoskeletal: No Pertinent History Male Surgical History: No Pertinent History Other Surgical History: 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 and Open heart on May 29 2018 - Social History Smoking Status: Former smoker How long have you smoked: years Exposure to second hand smoke: No Drug Use: none Patient Lives Alone: No Significant Family History: no pertinent family hx - Nursing Vital Signs Nursing Vital Signs: Initial Vital Signs Temperature 96.8 F 06/01/22 12:50 Pulse Rate 61 06/01/22 12:50 Respiratory Rate 17 06/01/22 12:50 Blood Pressure 160/103 06/01/22 12:50 O2 Sat by Pulse Oximetry 98 06/01/22 12:50 Pain Scale Pain Intensity 8 - Physical Exam General Appearance: moderate distress Eye Exam: PERRL/EOMI, eyes nml inspection Ears, Nose, Throat Exam: normal ENT inspection, pharynx normal, moist mucous membranes Neck Exam: normal inspection, non-tender, supple, full range of motion Respiratory Exam: normal breath sounds, lungs clear, No respiratory distress Cardiovascular Exam: regular rate/rhythm, normal heart sounds Gastrointestinal/Abdomen Exam: tenderness, guarding, rebound Back Exam: normal inspection, normal range of motion, No CVA tenderness, No vertebral tenderness Extremity Exam: normal inspection, normal range of motion, pelvis stable Neurologic Exam: alert, oriented x 3, cooperative, normal mood/affect, nml cerebellar function, sensation nml, No motor deficits Skin Exam: normal color, warm, dry SpO2 Interpretation: normal SpO2: 98 O2 Delivery: Room Air - Course Nursing assessment & vital signs reviewed: Yes EKG Interpreted by Me: RATE (59), Sinus Rhythm, NORMAL AXIS, Other (PCV, old inferior infarct) - Radiology Exams Chest X-ray Interpretation: Reviewed by me - CT Exams Abdomen/Pelvis CT Interpretation: Tele-radiologist Report - Radiology Ultrasound Exam Gallbladder Ultrasound: tele radiology report Ordered Tests: Active Orders 24 hr Category Date Time Status EKG-ER Only STAT Care 06/01/22 12:58 Active IV Insertion STAT Care 06/01/22 12:58 Active ABDOMEN AND PELVIS W CONTRAST [CT] Stat Exams 06/01/22 12:58 Completed CHEST 1 VIEW (PORTABLE) Stat Exams 06/01/22 12:58 Completed GALLBLADDER [US] Stat Exams 06/01/22 12:58 Completed AMYLASE Stat Lab 06/01/22 13:10 Completed CBC W DIFF Stat Lab 06/01/22 13:10 Completed CMP Stat Lab 06/01/22 13:10 Completed LIPASE Stat Lab 06/01/22 13:10 Completed Lactic Acid Stat Lab 06/01/22 13:10 Completed PROTIME WITH INR Stat Lab 06/01/22 13:10 Completed TROPONIN Q4H Lab 06/01/22 13:10 Completed TROPONIN Q4H Lab 06/01/22 17:00 Ordered TROPONIN Q4H Lab 06/01/22 21:00 Ordered UA W/RFX CULTURE Stat Lab 06/01/22 Ordered Medication Summary Discontinued Medications Generic Name Dose Route Start Last Admin Trade Name Arielle PRN Reason Stop Dose Admin Hydromorphone HCl 1 mg 06/01/22 12:58 06/01/22 13:28 Hydromorphone 1 Mg/1ml Inj 1 Mg/Ml Syringe IV 06/01/22 12:59 1 mg STAT ONE Administration Hydromorphone HCl Confirm 06/01/22 13:23 Hydromorphone 1 Mg/1ml Inj 1 Mg/Ml Syringe Administered 06/01/22 13:24 Dose 1 mg .ROUTE .STK-MED ONE Sodium Chloride 1,000 mls @ 999 mls/hr 06/01/22 12:58 06/01/22 14:56 Sodium Chloride 0.9% 1000 Ml IV 06/01/22 13:58 Infused .Q1H1M STA Infusion Sodium Chloride Confirm 06/01/22 13:23 Sodium Chloride 0.9% 1000 Ml Administered 06/01/22 13:24 Dose 1,000 mls @ ud .ROUTE .STK-MED ONE Ondansetron HCl 4 mg 06/01/22 12:58 06/01/22 13:27 Ondansetron Hcl 4 Mg/2 Ml Vial IV 06/01/22 12:59 4 mg STAT ONE Administration Ondansetron HCl Confirm 06/01/22 13:23 Ondansetron Hcl 4 Mg/2 Ml Vial Administered 06/01/22 13:24 Dose 4 mg .ROUTE .STK-MED ONE Lab/Rad Data: Laboratory Result Diagrams 06/01/22 13:10 06/01/22 13:10 Laboratory Results 06/01/22 06/01/22 06/01/22 Range/Units 13:10 13:10 13:10 WBC (4.0-10.5) x10^3/uL RBC (4.1-5.6) x10^6/uL Hgb (12.5-18.0) g/dL Hct (42-50) % MCV (78-100) fL MCH (26-32) pg MCHC (32-36) g/dL RDW (11.5-14.0) % Plt Count (150-450) x10^3/uL MPV (7.5-11.0) fL Gran % (36.0-66.0) % Immature Gran % (Auto) (0.00-0.4) % Nucleat RBC Rel Count (0.00-0.1) % Eos # (Auto) (0-0.5) x10^3/uL Immature Gran # (Auto) (0.00-0.03) x10^3u/L Absolute Lymphs (auto) (1.0-4.6) x10^3/uL Absolute Monos (auto) (0.0-1.3) x10^3/uL Absolute Nucleated RBC (0.00-0.01) x10^3u/L Lymphocytes % (24.0-44.0) % Monocytes % (0.0-12.0) % Eosinophils % (0.00-5.0) % Basophils % (0.0-0.4) % Absolute Granulocytes (1.4-6.9) x10^3/uL Basophils # (0-0.4) x10^3/uL PT 10.5 (9.4-12.5) SECONDS INR 0.99 (0.8-3.0) Sodium 135 L (137-145) mmol/L Potassium 4.8 (3.5-5.1) mmol/L Chloride 105 (98-107) mmol/L Carbon Dioxide 24 (22-30) mmol/L Anion Gap 10.7 (5-15) MEQ/L BUN 13 (9-20) mg/dL Creatinine 1.13 (0.66-1.25) mg/dL Estimated GFR > 60.0 ML/MIN Glucose 106 (74-106) mg/dL Lactic Acid (0.4-2.0) Calcium 9.3 (8.4-10.2) mg/dL Total Bilirubin 1.00 (0.2-1.3) mg/dL AST 38 (17-59) U/L ALT 18 (0-50) U/L Alkaline Phosphatase 101 (38-126) U/L Troponin I < 0.012 (0.000-0.034) ng/mL Serum Total Protein 7.7 (6.3-8.2) g/dL Albumin 4.4 (3.5-5.0) g/dL Amylase 76 (30-110) U/L Lipase 40 (23-300) U/L 06/01/22 06/01/22 Range/Units 13:10 13:10 WBC 6.5 (4.0-10.5) x10^3/uL RBC 4.86 (4.1-5.6) x10^6/uL Hgb 16.0 (12.5-18.0) g/dL Hct 45.8 (42-50) % MCV 94.2 (78-100) fL MCH 32.9 H (26-32) pg MCHC 34.9 (32-36) g/dL RDW 12.2 (11.5-14.0) % Plt Count 185 (150-450) x10^3/uL MPV 10.3 (7.5-11.0) fL Gran % 65.7 (36.0-66.0) % Immature Gran % (Auto) 0.2 (0.00-0.4) % Nucleat RBC Rel Count 0.0 (0.00-0.1) % Eos # (Auto) 0.17 (0-0.5) x10^3/uL Immature Gran # (Auto) 0.01 (0.00-0.03) x10^3u/L Absolute Lymphs (auto) 1.27 (1.0-4.6) x10^3/uL Absolute Monos (auto) 0.75 (0.0-1.3) x10^3/uL Absolute Nucleated RBC 0.00 (0.00-0.01) x10^3u/L Lymphocytes % 19.4 L (24.0-44.0) % Monocytes % 11.5 (0.0-12.0) % Eosinophils % 2.6 (0.00-5.0) % Basophils % 0.6 (0.0-0.4) % Absolute Granulocytes 4.30 (1.4-6.9) x10^3/uL Basophils # 0.04 (0-0.4) x10^3/uL PT (9.4-12.5) SECONDS INR (0.8-3.0) Sodium (137-145) mmol/L Potassium (3.5-5.1) mmol/L Chloride (98-107) mmol/L Carbon Dioxide (22-30) mmol/L Anion Gap (5-15) MEQ/L BUN (9-20) mg/dL Creatinine (0.66-1.25) mg/dL Estimated GFR ML/MIN Glucose (74-106) mg/dL Lactic Acid 1.2 (0.4-2.0) Calcium (8.4-10.2) mg/dL Total Bilirubin (0.2-1.3) mg/dL AST (17-59) U/L ALT (0-50) U/L Alkaline Phosphatase (38-126) U/L Troponin I (0.000-0.034) ng/mL Serum Total Protein (6.3-8.2) g/dL Albumin (3.5-5.0) g/dL Amylase (30-110) U/L Lipase (23-300) U/L - Progress Progress: improved - Departure Departure Disposition: Home Clinical Impression: Gastroenteritis Condition: Stable Critical Care Time: No Referrals: [facility],'[facility] [Primary Care Provider] - Follow up/PCP as directed Instructions: Viral Gastroenteritis, Adult (DC) Prescriptions: Hydrocodone/Acetaminophen [Hydrocodone-Acetamin 5-325 mg] 1 tab PO Q6HPRN PRN 3 Days #12 tablet MDD 4 PRN Reason: Pain Ondansetron ODT 4 MG [Zofran Odt 4 mg] 4 mg PO Q6H PRN PRN #10 tablet PRN Reason: Vomiting Metronidazole 500 mg [Flagyl 500 MG] 500 mg PO TID #21 tablet
[2022-06-01 13:39] LABS: ALBUMIN 4.4 g/dL (3.5-5.0); ALKALINE PHOSPHATASE 101 U/L (38-126); AMYLASE 76 U/L (30-110); ANION GAP 10.7 MEQ/L (5-15); BLOOD UREA NITROGEN 13 mg/dL (9-20); CHLORIDE 105 mmol/L (98-107); Calcium 9.3 mg/dL (8.4-10.2); Carbon Dioxide 24 mmol/L (22-30); Creatinine 1 1.13 mg/dL (0.66-1.25); EST GLOMERULAR FILTRATION RATE > 60.0 ML/MIN; Glucose 106 mg/dL (74-106); INR 0.99 (0.8-3.0); LIPASE 40 U/L (23-300); PROTIME 10.5 SECONDS (9.4-12.5); Potassium 4.8 mmol/L (3.5-5.1); SGOT/AST 38 U/L (17-59); SGPT/ALT 18 U/L (0-50); SODIUM 135 mmol/L (137-145); Total Protein 7.7 g/dL (6.3-8.2)
--- NOTE | 2022-06-01 13:53 | XRAY ---
Indication: Epigastric biliary colic pain. Comparison: November 15, 2021 Portable chest remains clear again with incidental COPD and tiny right lung calcified granulomas. Heart not enlarged again with aortic valve replacement. Bony thorax intact again with mild osteopenia and degenerative changes. Impression: Continued nonacute chest with chronic features.
--- NOTE | 2022-06-01 13:55 | XRAY ---
Indication: Biliary colic pain and vomiting. Two-dimensional gallbladder sonogram performed. Comparison: None Pancreas not well seen due to overlying bowel gas. Gallbladder normally distended without gallstones, wall thickening, or pericholecystic fluid. Common bile duct measures 4.8 mm. No intrahepatic biliary distention. Visualized liver are homogeneous in echogenicity without hepatomegaly or ascites. Right kidney measures 10.3 cm in length with 4.2 cm lower pole cyst. Impression: Nonvisualization pancreas. Right renal cyst. Remaining gallbladder sonogram is negative.
--- NOTE | 2022-06-01 15:05 | XRAY ---
Indication: Abdomen pain, nausea, vomiting, diarrhea, and dizziness. Multiple contiguous axial images obtained through the abdomen and pelvis using 80 cc Isovue 370 contrast. Comparison: March 04, 2022 Lung bases again demonstrates pulmonary emphysema and tiny right base calcified granuloma. No infiltrate or effusion. Heart not enlarged. Noncontrasted stomach and bowel loops nonobstructed again with normal appendix and scatter colonic diverticulosis without diverticulitis. No free fluid/air. Stable chronic findings including moderate right lower renal cyst, small right urinary bladder diverticulum, and fatty liver. Remaining liver, gallbladder, pancreas, spleen, adrenal glands, kidneys, ureters, and bladder are unremarkable. Again moderate scattered aortoiliac calcifications with aortobifemoral grafts. No pathologic retroperitoneal lymphadenopathy. Osseous structures intact again with osteopenia, mild degenerative spondylosis throughout thoracolumbar spine, bilateral L5 spondylolysis with grade 2 listhesis, and mild bilateral hip degenerative arthropathy. Impression: No change compared to March 04, 2022 exam. Again chronic findings including pulmonary emphysema, colonic diverticulosis, right renal cyst, urinary bladder diverticulum, fatty liver, arteriosclerotic disease with aortobifemoral grafts, and chronic bony findings. No new/acute findings.
[2022-06-01 15:12] VITALS: BP 160/100
[2022-06-01 15:23] VITALS: PULSE 61; O2SAT 95
[2022-06-01 15:31] LABS: Appearance CLEAR (CLEAR); Bilirubin NEGATIVE (NEGATIVE); Dipstick done @ ? MAIN LAB; Glucose NEGATIVE (NEGATIVE); Ketones NEGATIVE (NEGATIVE); Nitrite NEGATIVE (NEGATIVE); Ph 6.5 (5-6); Protein,Urine Dip NEGATIVE (Negative); RBC NEGATIVE Ery/ul (0-5); Specific Gravity 1.015 (1.005-1.025); Urobilinogen 1 mg/dL (0-1)
[2022-06-01 15:32] LABS: Urine Cultured Indicated? NO
== END 2022-06-01 15:28 | disposition home or self-care (01) ==
LOC: ED 12:40
DX: K52.9 Noninfective gastroenteritis and colitis, unspecified (principal); R11.2 Nausea with vomiting, unspecified; R10.13 Epigastric pain; I10 Essential (primary) hypertension; Z79.891 Long term (current) use of opiate analgesic; Z79.899 Other long term (current) drug therapy; Z28.310 Unvaccinated for COVID-19
CPT/HCPCS: 36000; 36415; 71045; 74177; 76705; 80053; 81015; 82150; 83605; 83690; 84484; 85025; 85610; 93005; 96360; 96374; 96375; 99284; J1170; J2405

== ENCOUNTER 2022-08-04 10:12 | Emergency (ER) | payer OTHER ==
[2022-08-04] MEDS ORDERED: Zofran 4 MG/2 ML VIAL IV ONE (10:34)
[2022-08-04] MEDS ORDERED: BABY ASPIRIN 81 MG CHEW PO ONE (10:34)
[2022-08-04] MEDS ORDERED: Sodium Chloride 0.9% 1000 ML 1,000 ML IV STA (10:34)
[2022-08-04 10:52] LABS: Absolute Neutrophil Ct (ANC) 6.71 x10^3/uL (1.4-6.9); BASOPHIL % 0.6 % (0.0-0.4); Basophil (Absolute #) 0.06 x10^3/uL (0-0.4); Eosinophil % 2.7 % (0.00-5.0); Eosinophil (Absolute #) 0.25 x10^3/uL (0-0.5); Hemoglobin 15.6 g/dL (12.5-18.0); IMMATURE GRAN # 0.03 x10^3u/L (0.00-0.03); IMMATURE GRAN % 0.3 % (0.00-0.4); Lymphocyte (Absolute #) 1.22 x10^3/uL (1.0-4.6); Lymphocytes % 13.1 % (24.0-44.0); Mean Cell Volume 96.4 fL (78-100); Mean Corpuscular Hemoglobin 32.7 pg (26-32); Mean Corpuscular Hgb Concent. 33.9 g/dL (32-36); Mean Platelet Volume 10.1 fL (7.5-11.0); Monocyte (Absolute #) 1.01 x10^3/uL (0.0-1.3); Monocytes % 10.9 % (0.0-12.0); Neutrophil % 72.4 % (36.0-66.0); Platelet Count 198 x10^3/uL (150-450); Red Blood Count 4.77 x10^6/uL (4.1-5.6); Red Cell Distribution Width 12.1 % (11.5-14.0); White Blood Count 9.3 x10^3/uL (4.0-10.5)
[2022-08-04] MEDS ORDERED: Sodium Chloride 0.9% 1000 ML 1,000 ML ONE (10:52)
[2022-08-04] MEDS ORDERED: Zofran 4 MG/2 ML VIAL ONE (10:52)
[2022-08-04] MEDS ORDERED: BABY ASPIRIN 81 MG CHEW ONE (10:56)
--- NOTE | 2022-08-04 11:13 | XRAY ---
Indication: Vomiting. Comparison: June 01, 2022 Portable chest remains inflated and clear again with incidental right lung calcified granuloma. Heart not enlarged again with cardiac valve replacement surgery. Bony thorax intact again with osteopenia, degenerative changes, and sternotomy wires. Impression: Continued nonacute chest with chronic features.
[2022-08-04 11:17] LABS: Appearance Clear (Clear); Bacteria None Seen /HPF (None Seen); Bilirubin Negative (Negative); Blood Negative (Negative); Epithelial Cells None Seen /HPF (None Seen); Glucose, Urine Negative (Negative); Hyaline Casts NONE SEEN /LPF (0-2); Ketones Negative (Negative); Leukocyte Esterase Negative (Negative); Nitrite Negative (Negative); Ph 6.5 (4.6-8.0); Protein,Urine Dip Negative (Negative); RBC 0-2 /HPF (0-5); WBC 0-2 /HPF (0-5)
[2022-08-04 11:21] LABS: ALBUMIN 4.2 g/dL (3.5-5.0); ALKALINE PHOSPHATASE 112 U/L (38-126); ANION GAP 15.5 MEQ/L (5-15); BLOOD UREA NITROGEN 10 mg/dL (9-20); CHLORIDE 104 mmol/L (98-107); Calcium 9.2 mg/dL (8.4-10.2); Carbon Dioxide 24 mmol/L (22-30); Creatinine 1 1.08 mg/dL (0.66-1.25); EST GLOMERULAR FILTRATION RATE > 60.0 ML/MIN; Glucose 123 mg/dL (74-106); LIPASE 39 U/L (23-300); NT PRO BNPII 534 pg/mL (<300); Potassium 4.3 mmol/L (3.5-5.1); SGOT/AST 22 U/L (17-59); SGPT/ALT 15 U/L (0-50); SODIUM 139 mmol/L (137-145); Total Protein 7.2 g/dL (6.3-8.2)
--- NOTE | 2022-08-04 11:21 | ERPHSYRPT ---
- History of Present Illness Time Seen by Provider: 08/04/22 10:18 Source: patient Exam Limitations: no limitations Patient Subjective Stated Complaint: Vomiting Triage Nursing Assessment: Patient ambulated back to ED and transferred self to bed. Patient A+O X 3. Patient's skin pink, warm and dry. Patient complains of fever, productive cough with thick yellow/white mucus, N/V, diarrhea, dizziness, sore throat and fatigue on and off for 3 weeks. Patient complains of upper abdominal pain 11/13. Lungs diminished thoughout. Abdomen soft and round with BS X 4. Physician History: Patient is here with fatigue, cough, sore throat. Has been going on for 3 weeks. Patient has some mild midepigastric pain. No other falls or trauma. No fever or chills. Patient states that her throat feels red and raw. Patient has an EGD scheduled in September. Allergies/Adverse Reactions: Penicillins Allergy (Verified 08/04/22 10:18) Sulfa (Sulfonamide Antibiotics) Allergy (Verified 08/04/22 10:18) Home Medications: Aspirin 81 gm Chew [Baby Aspirin 81 mg Chew] 1 tab PO DAILY 11/26/18 [History] Metoprolol Tartrate 25 mg [Lopressor 25MG Tab] 12.5 mg PO BID 11/26/18 [History] Trazodone HCl 50 mg [Desyrel 50 mg] 50 mg PO HS 11/26/18 [History] Rosuvastatin Calcium 40 mg PO DAILY 11/15/21 [History] Tamsulosin HCl 0.4 mg [Flomax 0.4 MG] 0.4 mg PO DAILY 06/01/22 [History] Hx Tetanus, Diphtheria Vaccination/Date Given: Yes Hx Influenza Vaccination/Date Given: Yes Hx Pneumococcal Vaccination/Date Given: Yes Immunizations Up to Date: Yes Travel Risk - International Travel Have you traveled outside of the country in past 3 weeks: No - Coronavirus Screening Are you exhibiting any of the following symptoms?: Yes Symptoms: Fever, Cough: New Onset, Shortness of Breath, Vomiting/Diarrhea, Headaches/Body Aches/Fatigue Close contact with a COVID-19 positive Pt in past 14-21 Days: No - Vaccine Status Have you recieved a Covid-19 vaccination: No - Review of Systems Constitutional: Fatigue, No Fever, No Chills Eyes: No Symptoms Ears, Nose, & Throat: No Symptoms Respiratory: No Cough, No Dyspnea Cardiac: No Chest Pain, No Edema, No Syncope Abdominal/Gastrointestinal: Nausea, Vomiting, Diarrhea, No Abdominal Pain Genitourinary Symptoms: No Dysuria Musculoskeletal: No Back Pain, No Neck Pain Skin: No Rash Neurological: No Dizziness, No Focal Weakness, No Sensory Changes Psychological: No Symptoms Endocrine: No Symptoms All Other Systems: Reviewed and Negative - Past Medical History Pertinent Past Medical History: Yes Neurological History: No Pertinent History ENT History: No Pertinent History Cardiac History: Coronary Artery Disease, Hypertension Respiratory History: No Pertinent History Endocrine Medical History: No Pertinent History Musculoskeletal History: No Pertinent History GI Medical History: No Pertinent History History: Bladder Cancer Psycho-Social History: No Pertinent History Male Reproductive Disorders: No Pertinent History - Past Surgical History Past Surgical History: Yes Neuro Surgical History: No Pertinent History Cardiac: No Pertinent History Respiratory: No Pertinent History Gastrointestinal: No Pertinent History Genitourinary: No Pertinent History Musculoskeletal: No Pertinent History Male Surgical History: No Pertinent History Other Surgical History: 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 and Open heart on May 29 2018 - Social History Smoking Status: Former smoker How long have you smoked: years Exposure to second hand smoke: No Drug Use: none Patient Lives Alone: No Significant Family History: no pertinent family hx - Nursing Vital Signs Nursing Vital Signs: Initial Vital Signs Temperature 97.8 F 08/04/22 10:21 Pulse Rate 76 08/04/22 10:21 Respiratory Rate 18 08/04/22 10:21 Blood Pressure 156/87 08/04/22 10:21 O2 Sat by Pulse Oximetry 97 08/04/22 10:21 Pain Scale Pain Intensity 0 - Physical Exam General Appearance: no apparent distress, alert Eye Exam: PERRL/EOMI, eyes nml inspection Ears, Nose, Throat Exam: normal ENT inspection, TMs normal, pharynx normal, moist mucous membranes Neck Exam: normal inspection, non-tender, supple, full range of motion Respiratory Exam: normal breath sounds, lungs clear, No respiratory distress Cardiovascular Exam: regular rate/rhythm, normal heart sounds, normal peripheral pulses Gastrointestinal/Abdomen Exam: soft, normal bowel sounds, tenderness, other (Mild midepigastric tenderness), No mass Back Exam: normal inspection, normal range of motion, No CVA tenderness, No vertebral tenderness Extremity Exam: normal inspection, normal range of motion, pelvis stable Neurologic Exam: alert, oriented x 3, cooperative, normal mood/affect, nml cerebellar function, nml station & gait, sensation nml, No motor deficits Skin Exam: normal color, warm, dry, No rash Lymphatic Exam: No adenopathy SpO2: 97 - Course Nursing assessment & vital signs reviewed: Yes EKG Interpreted by Me: Sinus Rhythm Ordered Tests: Active Orders 24 hr Category Date Time Status EKG-ER Only STAT Care 08/04/22 10:34 Completed IV Insertion STAT Care 08/04/22 10:34 Completed CHEST 1 VIEW (PORTABLE) Stat Exams 08/04/22 10:34 Completed CBC W DIFF Stat Lab 08/04/22 10:52 Completed CMP Stat Lab 08/04/22 10:52 Completed LIPASE Stat Lab 08/04/22 10:52 Completed NT PRO BNPII Stat Lab 08/04/22 10:52 Completed TROPONIN Q4H Lab 08/04/22 10:52 Completed UA W/RFX UR CULTURE Stat Lab 08/04/22 10:40 Completed Medication Summary Discontinued Medications Generic Name Dose Route Start Last Admin Trade Name Freq PRN Reason Stop Dose Admin Aspirin 324 mg 08/04/22 10:34 08/04/22 10:52 Aspirin 81 Mg Tab.Chew PO 08/04/22 10:35 324 mg STAT ONE Administration Aspirin Confirm 08/04/22 10:56 Aspirin 81 Mg Tab.Chew Administered 08/04/22 10:57 Dose 324 mg .ROUTE .STK-MED ONE Sodium Chloride 1,000 mls @ 999 mls/hr 08/04/22 10:34 08/04/22 11:57 Sodium Chloride 0.9% 1000 Ml IV 08/04/22 11:34 Infused .Q1H1M STA Infusion Sodium Chloride Confirm 08/04/22 10:52 Sodium Chloride 0.9% 1000 Ml Administered 08/04/22 10:53 Dose 1,000 mls @ ud .ROUTE .STK-MED ONE Ondansetron HCl 4 mg 08/04/22 10:34 08/04/22 10:52 Ondansetron Hcl 4 Mg/2 Ml Vial IV 08/04/22 10:35 4 mg STAT ONE Administration Ondansetron HCl Confirm 08/04/22 10:52 Ondansetron Hcl 4 Mg/2 Ml Vial Administered 08/04/22 10:53 Dose 4 mg .ROUTE .STK-MED ONE Lab/Rad Data: Laboratory Result Diagrams 08/04/22 10:52 08/04/22 10:52 Laboratory Results 08/04/22 08/04/22 08/04/22 Range/Units 10:52 10:52 10:52 WBC (4.0-10.5) x10^3/uL RBC (4.1-5.6) x10^6/uL Hgb (12.5-18.0) g/dL Hct (42-50) % MCV (78-100) fL MCH (26-32) pg MCHC (32-36) g/dL RDW (11.5-14.0) % Plt Count (150-450) x10^3/uL MPV (7.5-11.0) fL Gran % (36.0-66.0) % Immature Gran % (Auto) (0.00-0.4) % Nucleat RBC Rel Count (0.00-0.1) % Eos # (Auto) (0-0.5) x10^3/uL Immature Gran # (Auto) (0.00-0.03) x10^3u/L Absolute Lymphs (auto) (1.0-4.6) x10^3/uL Absolute Monos (auto) (0.0-1.3) x10^3/uL Absolute Nucleated RBC (0.00-0.01) x10^3u/L Lymphocytes % (24.0-44.0) % Monocytes % (0.0-12.0) % Eosinophils % (0.00-5.0) % Basophils % (0.0-0.4) % Absolute Granulocytes (1.4-6.9) x10^3/uL Basophils # (0-0.4) x10^3/uL Sodium 139 (137-145) mmol/L Potassium 4.3 (3.5-5.1) mmol/L Chloride 104 (98-107) mmol/L Carbon Dioxide 24 (22-30) mmol/L Anion Gap 15.5 H (5-15) MEQ/L BUN 10 (9-20) mg/dL Creatinine 1.08 (0.66-1.25) mg/dL Estimated GFR > 60.0 ML/MIN Glucose 123 H (74-106) mg/dL Calcium 9.2 (8.4-10.2) mg/dL Total Bilirubin 0.50 (0.2-1.3) mg/dL AST 22 (17-59) U/L ALT 15 (0-50) U/L Alkaline Phosphatase 112 (38-126) U/L Troponin I < 0.012 (0.000-0.034) ng/mL NT-Pro-B Natriuret Pep 534 (<300) pg/mL Serum Total Protein 7.2 (6.3-8.2) g/dL Albumin 4.2 (3.5-5.0) g/dL Lipase 39 (23-300) U/L Urine Color (Yellow) Urine Appearance (Clear) Urine pH (4.6-8.0) Ur Specific [place] (1.005-1.030) Urine Protein (Negative) Urine Glucose (UA) (Negative) mg/dL Urine Ketones (Negative) Urine Blood (Negative) Urine Nitrite (Negative) Urine Bilirubin (Negative) Urine Urobilinogen (0.2) mg/dL Ur Leukocyte Esterase (Negative) U Hyaline Cast (Auto) (0-2) /LPF Urine Microscopic RBC (0-5) /HPF Urine Microscopic WBC (0-5) /HPF Ur Epithelial Cells (None Seen) /HPF Urine Bacteria (None Seen) /HPF Urine Culture Reflexed (NO) Influenza Type A Ag NEGATIVE (NEGATIVE) Influenza Type B Ag NEGATIVE (NEGATIVE) RSV (PCR) NEGATIVE (Negative) SARS-CoV-2 (PCR) NEGATIVE (NEGATIVE) Group A Strep Antibody DETECTED (NEGATIVE) 08/04/22 08/04/22 Range/Units 10:52 10:40 WBC 9.3 (4.0-10.5) x10^3/uL RBC 4.77 (4.1-5.6) x10^6/uL Hgb 15.6 (12.5-18.0) g/dL Hct 46.0 (42-50) % MCV 96.4 (78-100) fL MCH 32.7 H (26-32) pg MCHC 33.9 (32-36) g/dL RDW 12.1 (11.5-14.0) % Plt Count 198 (150-450) x10^3/uL MPV 10.1 (7.5-11.0) fL Gran % 72.4 H (36.0-66.0) % Immature Gran % (Auto) 0.3 (0.00-0.4) % Nucleat RBC Rel Count 0.0 (0.00-0.1) % Eos # (Auto) 0.25 (0-0.5) x10^3/uL Immature Gran # (Auto) 0.03 (0.00-0.03) x10^3u/L Absolute Lymphs (auto) 1.22 (1.0-4.6) x10^3/uL Absolute Monos (auto) 1.01 (0.0-1.3) x10^3/uL Absolute Nucleated RBC 0.00 (0.00-0.01) x10^3u/L Lymphocytes % 13.1 L (24.0-44.0) % Monocytes % 10.9 (0.0-12.0) % Eosinophils % 2.7 (0.00-5.0) % Basophils % 0.6 (0.0-0.4) % Absolute Granulocytes 6.71 (1.4-6.9) x10^3/uL Basophils # 0.06 (0-0.4) x10^3/uL Sodium (137-145) mmol/L Potassium (3.5-5.1) mmol/L Chloride (98-107) mmol/L Carbon Dioxide (22-30) mmol/L Anion Gap (5-15) MEQ/L BUN (9-20) mg/dL Creatinine (0.66-1.25) mg/dL Estimated GFR ML/MIN Glucose (74-106) mg/dL Calcium (8.4-10.2) mg/dL Total Bilirubin (0.2-1.3) mg/dL AST (17-59) U/L ALT (0-50) U/L Alkaline Phosphatase (38-126) U/L Troponin I (0.000-0.034) ng/mL NT-Pro-B Natriuret Pep (<300) pg/mL Serum Total Protein (6.3-8.2) g/dL Albumin (3.5-5.0) g/dL Lipase (23-300) U/L Urine Color Yellow (Yellow) Urine Appearance Clear (Clear) Urine pH 6.5 (4.6-8.0) Ur Specific [place] 1.010 (1.005-1.030) Urine Protein Negative (Negative) Urine Glucose (UA) Negative (Negative) mg/dL Urine Ketones Negative (Negative) Urine Blood Negative (Negative) Urine Nitrite Negative (Negative) Urine Bilirubin Negative (Negative) Urine Urobilinogen 1.0 A (0.2) mg/dL Ur Leukocyte Esterase Negative (Negative) U Hyaline Cast (Auto) NONE SEEN (0-2) /LPF Urine Microscopic RBC 0-2 (0-5) /HPF Urine Microscopic WBC 0-2 (0-5) /HPF Ur Epithelial Cells None Seen (None Seen) /HPF Urine Bacteria None Seen (None Seen) /HPF Urine Culture Reflexed NO (NO) Influenza Type A Ag (NEGATIVE) Influenza Type B Ag (NEGATIVE) RSV (PCR) (Negative) SARS-CoV-2 (PCR) (NEGATIVE) Group A Strep Antibody (NEGATIVE) - Progress Progress: unchanged, improved Progress Note: 08/04/22 13:38 differential diagnosis includes kidney stone, compression fracture, infection, UTI, triple AAA - basic labs including: CBC, lipase, CMP, UA, rapid strep, - EKG, Flu/Covid/RSV - insert IV for fluids, pain meds, nausea control - consider imaging: CT ab/pelvis We also obtain a EKG, BNP, trop out of an abundance of caution looking for a inferior NSTEMI or STEMI. These all returned negative as well. Patient is strep positive. Most likely the source of his symptoms. We will treat going home. Patient will need to return here sooner for new or changing symptoms. Otherwise follow-up with PCP. 08/04/22 13:41 - Departure Departure Disposition: Home Clinical Impression: Strep throat Condition: Stable Critical Care Time: No Referrals: [facility]OS[facility],'S [Primary Care Provider] - Follow up/PCP as directed Instructions: Strep Throat (DC) Prescriptions: Ondansetron ODT 4 MG [Zofran Odt 4 mg] 4 mg PO Q6H PRN PRN #10 tablet PRN Reason: Vomiting Azithromycin 500 mg PO DAILY 5 Days #5 tablet
[2022-08-04 11:23] LABS: Group A Strep DETECTED (NEGATIVE)
[2022-08-04 11:30] LABS: ADD URINE CULTURE? NO (NO)
[2022-08-04 11:35] LABS: INFLUENZA A NEGATIVE (NEGATIVE); INFLUENZA B NEGATIVE (NEGATIVE); RESPIRATORY SYNCTIAL VIRUS NEGATIVE (Negative); SARS-CoV-2 Xpert Express NEGATIVE (NEGATIVE)
[2022-08-04 12:06] VITALS: BP 143/63; PULSE 63
[2022-08-04 12:11] VITALS: O2SAT 97
== END 2022-08-04 12:25 | disposition home or self-care (01) ==
LOC: ED 10:12
DX: J02.0 Streptococcal pharyngitis (principal); R53.83 Other fatigue; R05.9 Cough, unspecified; R10.13 Epigastric pain; I25.10 Atherosclerotic heart disease of native coronary artery without angina pectoris; I10 Essential (primary) hypertension; Z79.899 Other long term (current) drug therapy; Z28.310 Unvaccinated for COVID-19; Z20.828 Contact with and (suspected) exposure to other viral communicable diseases
CPT/HCPCS: 0241U; 36000; 36415; 71045; 80053; 81001; 83690; 83880; 84484; 85025; 87651; 93005; 96374; 99284; J2405; A9270-GY

== ENCOUNTER 2024-07-06 02:43 | Observation (INO) | payer OTHER ==
[2024-07-06 03:23] LABS: Absolute Neutrophil Ct (ANC) 4.12 x10^3/uL (1.78-5.38); BASOPHIL % 0.6 % (0.2-1.2); Basophil (Absolute #) 0.04 x10^3/uL (0.01-0.08); Eosinophil % 2.3 % (0.8-7.0); Eosinophil (Absolute #) 0.15 x10^3/uL (0.04-0.54); Hematocrit 41.5 % (40.1-51.0); Hemoglobin 14.3 g/dL (13.7-17.5); IMMATURE GRAN # 0.02 x10^3u/L (0.001-0.031); IMMATURE GRAN % 0.3 % (0.001-0.429); Lymphocyte (Absolute #) 1.21 x10^3/uL (1.32-3.57); Lymphocytes % 18.7 % (21.8-53.1); Mean Cell Volume 96.7 fL (79.0-92.2); Mean Corpuscular Hemoglobin 33.3 pg (25.7-32.2); Mean Corpuscular Hgb Concent. 34.5 g/dL (32.3-36.5); Mean Platelet Volume 10.5 fL (9.4-12.4); Monocyte (Absolute #) 0.94 x10^3/uL (0.30-0.82); Monocytes % 14.5 % (5.3-12.2); Neutrophil % 63.6 % (34.0-67.9); Platelet Count 146 x10^3/uL (163-337); Red Blood Count 4.29 x10^6/uL (4.63-6.08); Red Cell Distribution Width 12.1 % (11.6-14.4); White Blood Count 6.5 x10^3/uL (4.23-9.07)
--- NOTE | 2024-07-06 03:44 | XRAY ---
CLINICAL HISTORY: fall stroke like symptoms COMPARISON: none TECHNIQUE: Multiple axial images are obtained from the skull base to the vertex without contrast. CT scan was performed according to ALARA (as low as reasonably achievable). FINDINGS: There is cerebral atrophy. Focal area of hypodensity in anterior limb of right internal capsule. 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 No evidence of space occupying lesion, hemorrhage, extra axial collection, or hydrocephalus is noted. Basal cisterns are symmetric and normal in size and configuration. There are scattered periventricular hypodensities as can be seen with chronic microvascular ischemic changes. The [place]-white matter differentiation is preserved. Visualized paranasal sinuses and mastoid air cells are well aerated. Orbital contents are within normal limits. Bony structures are intact. IMPRESSION: 1. Focal area of hypodensity in anterior limb of right internal capsule. Possibility of acute to subacute infarct. Suggested MRI Brain for confirmation. 2. No trauma related injury. 3. 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 4. Chronic microvascular ischemic changes. 5. Cerebral atrophy. Electronically Signed by: Claude Montgomery MD. (07/06/2024 03:39:40 EST)
--- NOTE | 2024-07-06 04:00 | ERPHSYRPT ---
- History of Present Illness Time Seen by Provider: 07/06/24 02:49 Source: patient, family, EMS Exam Limitations: clinical condition Patient Subjective Stated Complaint: c/o fall Triage Nursing Assessment: patient brought to ED by EMS with c/o of fall and LOC. Patient's stated he has fallen on multiple occasions over the past 6 months. patient fell at 0045 and hit ribs on a chair, patient states rib pain 2/10 amd hip pain is 8/10 from a previous fall. patient is AxOx3 but has intermittent confusion. patient has a hx of PTSD. hypotensive, slightly bradycardic, 94% on RA, brought in by ambulance, patient doesn't appear to be in distress at this time. Physician History: 79 years old male with history of coronary artery disease with CABG, hypertension, peripheral vascular disease with aortobifemoral bypass, a nxiety/PTSD, issues with balance with recurrent falls is brought in the ER after he fell when he got up from the chair and accidentally hit right side of head against the table with loss of consciousness for almost a minute with no seizure-like activity noticed by . Patient woke up with no postictal phase. Patient has been falling a lot lately per . Patient was having some slurring of speech on EMS arrival. Patient is slow to respond on presentation in the ER but not confused or altered. Patient also has new onset A-fib although rate controlled. also reports patient having wo rsening headache for the last few days. She does not think patient is at his baseline He is complaining of pain in the right ribs and hip making it difficult to ambulate. Patient denies any left-sided chest pain but is found to be in A-fib rate controlled which is new onset and no previous history of atrial fibrillation. Denies any abdominal pain nausea or vomiting. No visual changes. Patient is very sleepy and told that he has taken trazodone earlier. Not a good historian and history is limited. Allergies/Adverse Reactions: Penicillins Allergy (Verified 07/06/24 03:53) Sulfa (Sulfonamide Antibiotics) Allergy (Verified 07/06/24 03:53) Home Medications: Aspirin 81 gm Chew [Baby Aspirin 81 mg Chew] 1 tab PO DAILY 11/26/18 [History] Metoprolol Tartrate 25 mg [Lopressor 25MG Tab] 12.5 mg PO BID 11/26/18 [History] Trazodone HCl 50 mg [Desyrel 50 mg] 50 mg PO HS 11/26/18 [History] Rosuvastatin Calcium 60 mg PO DAILY 11/15/21 [History] Cyanocobalamin (Vitamin B-12) [Vitamin B12] 2,500 mcg PO DAILY 07/06/24 [History] Prazosin HCl 2 mg PO HS 07/06/24 [History] Sertraline HCl 100 mg PO DAILY 07/06/24 [History] Hx Tetanus, Diphtheria Vaccination/Date Given: Yes Hx Influenza Vaccination/Date Given: Yes Hx Pneumococcal Vaccination/Date Given: No Travel Risk - International Travel Have you traveled outside of the country in past 3 weeks: No - Emerging Infectious Disease Are you exhibiting symptoms associated with any current EIDs: No - Review of Systems Constitutional: Fatigue Ears, Nose, & Throat: No Symptoms Respiratory: No Symptoms Cardiac: No Symptoms Abdominal/Gastrointestinal: No Symptoms Musculoskeletal: Arthralgias, Fall, Injury Neurological: Headache Psychological: Anxiety Endocrine: No Symptoms Hematologic/Lymphatic: No Symptoms - Past Medical History Pertinent Past Medical History: Yes Neurological History: No Pertinent History ENT History: No Pertinent History Cardiac History: Coronary Artery Disease, Hypertension Respiratory History: No Pertinent History Endocrine Medical History: No Pertinent History Musculoskeletal History: No Pertinent History GI Medical History: No Pertinent History History: Bladder Cancer Psycho-Social History: Anxiety, Depression Male Reproductive Disorders: No Pertinent History Other Medical History: PTSD, - Past Surgical History Past Surgical History: Yes Neuro Surgical History: No Pertinent History Cardiac: No Pertinent History Respiratory: No Pertinent History Gastrointestinal: No Pertinent History Genitourinary: No Pertinent History Musculoskeletal: No Pertinent History Male Surgical History: No Pertinent History Other Surgical History: 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 and Open heart on May 29 2018, back surgery in 1967 Significant Family History: no pertinent family hx - Social History Smoking Status: Former smoker How long have you smoked: years Exposure to second hand smoke: No Drug Use: none Patient Lives Alone: No - Social Determinants of Health Will the patient participate in the screening: Yes Do you worry about a steady place to live?: No Do you have any problems with any of the following?: No known problems In the past 12 months,have you had to go without utilities?: No Transportation Issues: No Has anyone in your support network made you feel unsafe?: No Have you or anyone in your house had to go without enough: No - Nursing Vital Signs Nursing Vital Signs: Initial Vital Signs Temperature 97.5 F 07/06/24 03:24 Pulse Rate 63 07/06/24 03:24 Respiratory Rate 17 07/06/24 03:24 Blood Pressure 83/58 07/06/24 03:24 O2 Sat by Pulse Oximetry 93 L 07/06/24 03:24 Pain Scale Pain Intensity 8 - Bill Coma Score Best Eye Response (Bill): (4) open spontaneously Best Verbal Response (Bill): (5) oriented Best Motor Response (Bill): (6) obeys commands [place] Total: 15 - Physical Exam General Appearance: no apparent distress, alert Head Injury: tenderness (Right posterior parietal scalp with abrasion. 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 tested, sensation nml, No normal mood/affect, No motor deficits Skin Exam: normal color SpO2 Interpretation: normal SpO2: 94 O2 Delivery: Room Air - Course EKG Interpreted by Me: RATE (55), A-fib, NORMAL AXIS, NORMAL INTERVALS, Q-wave, Non-specific ST Changes Ordered Tests: Active Orders 24 hr Category Date Time Status Up With Assistance TOLERATED Activity 07/06/24 06:20 Active 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 Spotter STAT Care 07/06/24 02:52 Active EKG-ER Only STAT Care 07/06/24 02:52 Active IV Insertion STAT Care 07/06/24 02:52 Active Intake and Output q4h Care 07/06/24 06:20 Active Telemetry PROTOCOL Care 07/06/24 06:20 Active Heart-Healthy Diet Diet 07/06/24 Breakfast Active CERVICAL SPINE WO CONTRAST [CT] Stat Exams 07/06/24 03:02 Completed CHEST 1 VIEW (PORTABLE) Stat Exams 07/06/24 03:[address] ANGIOGRAPHY NECK [CT] Stat Exams 07/06/24 05:17 Completed CTA HEAD W AND/OR WO CONTRAST [CT] Stat Exams 07/06/24 05:17 Completed HEAD WITHOUT CONTRAST [CT] Stat Exams 07/06/24 03:02 Completed MRI BRAIN W & W/O CONTRAST [MRI] Stat Exams 07/06/24 06:22 Ordered PELVIS WITHOUT CONTRAST [CT] Stat Exams 07/06/24 02:49 Completed CBC AM.LAB Lab 07/07/24 04:00 Ordered CBC W DIFF Stat Lab 07/06/24 03:21 Completed CK (IN-HOUSE) [CK-Creatinine Phosphokinase] Stat Lab 07/06/24 06:22 Ordered CMP AM.LAB Lab 07/07/24 04:00 Ordered CMP Stat Lab 07/06/24 03:21 Completed CREATININE,URINE RANDOM Routine Lab 07/06/24 06:21 Ordered Lactic Acid Stat Lab 07/06/24 02:52 Completed Lactic Acid Stat Lab 07/06/24 05:26 Received MAGNESIUM Stat Lab 07/06/24 03:21 Completed MG [MAGNESIUM] AM.LAB Lab 07/07/24 04:00 Ordered NT PRO BNPII Stat Lab 07/06/24 03:21 Completed Sodium, Urine Routine Lab 07/06/24 06:21 Ordered TROPONIN Q4H Lab 07/06/24 03:21 Completed TROPONIN Q4H Lab 07/06/24 07:00 Ordered TROPONIN Q4H Lab 07/06/24 11:00 Ordered UA W/RFX UR CULTURE Stat Lab 07/06/24 06:16 Received Medication Summary Generic Name Dose Route Start Last Admin Trade Name Freq PRN Reason Stop Dose Admin Acetaminophen 325 mg 07/06/24 06:20 Acetaminophen 325 Mg Tablet PO 08/05/24 06:19 Q4H PRN PRN PAIN, FEVER, HEADACHE Aspirin mg 07/06/24 10:00 Aspirin 81 Mg Tab.Chew PO 08/05/24 09:59 DAILY NUZHAT Sodium Chloride 500 mls @ 500 mls/hr 07/06/24 06:00 07/06/24 06:10 Sodium Chloride 0.9% 500 Ml IV 07/06/24 06:59 500 mls/hr .Q1H ONE Administration Sodium Chloride 1,000 mls @ 100 mls/hr 07/06/24 06:30 Sodium Chloride 0.9% 1000 Ml IV 08/05/24 06:29 .Q10H NUZHAT Non-Formulary Medication 60 mg 07/06/24 10:00 Rosuvastatin Calcium [Rosuvastatin Calcium] PO 08/05/24 09:59 DAILY NUZHAT Non-Formulary Medication 100 mg 07/06/24 10:00 Sertraline Hcl [Sertraline Hcl] PO 08/05/24 09:59 DAILY NUZHAT Non-Formulary Medication 2,500 mcg 07/06/24 10:00 Cyanocobalamin (Vitamin B-12) [Vitamin B12] PO 08/05/24 09:59 DAILY NUZHAT Pantoprazole Sodium 40 mg 07/06/24 10:00 Protonix (Pantoprazole) 40 Mg Tablet PO 08/05/24 09:59 DAILY NUZHAT Trazodone HCl 50 mg 07/06/24 22:00 Trazodone Hcl 50 Mg Tablet PO 08/05/24 21:59 HS NUZHAT Discontinued Medications Generic Name Dose Route Start Last Admin Trade Name Freq PRN Reason Stop Dose Admin Sodium Chloride Confirm 07/06/24 06:08 Sodium Chloride 0.9% 500 Ml Administered 07/06/24 06:09 Dose 500 mls @ ud IV .STK-MED ONE Sodium Chloride 1,000 mls @ 999 mls/hr 07/06/24 04:50 07/06/24 06:14 Sodium Chloride 0.45% 1000 Ml IV 07/06/24 05:50 Infused .Q1H1M ONE Infusion Lab/Rad Data: Laboratory Result Diagrams 07/06/24 03:21 07/06/24 03:21 Laboratory Results 07/06/24 07/06/24 07/06/24 Range/Units 03:21 03:21 03:21 WBC 6.5 (4.23-9.07) x10^3/uL RBC 4.29 L (4.63-6.08) x10^6/uL Hgb 14.3 (13.7-17.5) g/dL Hct 41.5 (40.1-51.0) % MCV 96.7 H (79.0-92.2) fL MCH 33.3 H (25.7-32.2) pg MCHC 34.5 (32.3-36.5) g/dL RDW 12.1 (11.6-14.4) % Plt Count 146 L (163-337) x10^3/uL MPV 10.5 (9.4-12.4) fL Gran % 63.6 (34.0-67.9) % Immature Gran % (Auto) 0.3 (0.001-0.429) % Nucleat RBC Rel Count 0.0 (0.00-0.2) % Eos # (Auto) 0.15 (0.04-0.54) x10^3/uL Immature Gran # (Auto) 0.02 (0.001-0.031) x10^3u/L Absolute Lymphs (auto) 1.21 L (1.32-3.57) x10^3/uL Absolute Monos (auto) 0.94 H (0.30-0.82) x10^3/uL Absolute Nucleated RBC 0.00 (0.00-0.012) x10^3u/L Lymphocytes % 18.7 L (21.8-53.1) % Monocytes % 14.5 H (5.3-12.2) % Eosinophils % 2.3 (0.8-7.0) % Basophils % 0.6 (0.2-1.2) % Absolute Granulocytes 4.12 (1.78-5.38) x10^3/uL Basophils # 0.04 (0.01-0.08) x10^3/uL Sodium 138 (135-145) mmol/L Potassium 3.6 (3.5-5.1) mmol/L Chloride 108 H (98-107) mmol/L Carbon Dioxide 19 L (22-30) mmol/L Anion Gap 14.5 (5-15) MEQ/L BUN 14 (9-20) mg/dL Creatinine 1.43 H (0.66-1.25) mg/dL Estimated GFR 50.2 ML/MIN Glucose 95 (74-106) mg/dL Lactic Acid (0.4-2.0) Calcium 8.7 (8.4-10.2) mg/dL Magnesium 2.1 (1.6-2.3) mg/dL Total Bilirubin 0.40 (0.2-1.3) mg/dL AST 34 (17-59) U/L ALT 22 (0-50) U/L Alkaline Phosphatase 91 (38-126) U/L Troponin I 0.027 (0.000-0.033) ng/mL NT-Pro-B Natriuret Pep 1760 (<300) pg/mL Serum Total Protein 6.6 (6.3-8.2) g/dL Albumin 4.1 (3.5-5.0) g/dL 07/06/24 Range/Units 02:52 WBC (4.23-9.07) x10^3/uL RBC (4.63-6.08) x10^6/uL Hgb (13.7-17.5) g/dL Hct (40.1-51.0) % MCV (79.0-92.2) fL MCH (25.7-32.2) pg MCHC (32.3-36.5) g/dL RDW (11.6-14.4) % Plt Count (163-337) x10^3/uL MPV (9.4-12.4) fL Gran % (34.0-67.9) % Immature Gran % (Auto) (0.001-0.429) % Nucleat RBC Rel Count (0.00-0.2) % Eos # (Auto) (0.04-0.54) x10^3/uL Immature Gran # (Auto) (0.001-0.031) x10^3u/L Absolute Lymphs (auto) (1.32-3.57) x10^3/uL Absolute Monos (auto) (0.30-0.82) x10^3/uL Absolute Nucleated RBC (0.00-0.012) x10^3u/L Lymphocytes % (21.8-53.1) % Monocytes % (5.3-12.2) % Eosinophils % (0.8-7.0) % Basophils % (0.2-1.2) % Absolute Granulocytes (1.78-5.38) x10^3/uL Basophils # (0.01-0.08) x10^3/uL Sodium (135-145) mmol/L Potassium (3.5-5.1) mmol/L Chloride (98-107) mmol/L Carbon Dioxide (22-30) mmol/L Anion Gap (5-15) MEQ/L BUN (9-20) mg/dL Creatinine (0.66-1.25) mg/dL Estimated GFR ML/MIN Glucose (74-106) mg/dL Lactic Acid 2.3 H (0.4-2.0) Calcium (8.4-10.2) mg/dL Magnesium (1.6-2.3) mg/dL Total Bilirubin (0.2-1.3) mg/dL AST (17-59) U/L ALT (0-50) U/L Alkaline Phosphatase (38-126) U/L Troponin I (0.000-0.033) ng/mL NT-Pro-B Natriuret Pep (<300) pg/mL Serum Total Protein (6.3-8.2) g/dL Albumin (3.5-5.0) g/dL - Progress Progress: improved, re-examined Progress Note: 07/06/24 06:41 79 years old is evaluated in the ER for fall with syncope prior to arrival. Patient has history of frequent falls with balance issues. EKG is A-fib rate controlled with no ST elevations. Patient was borderline hypotensive, given fluids and improved to 120s. He is made stroke activated and prompt CT head and cervical spines are obtained with CT head showing subacute to acute infarct in the margin [facility] neurology consult obtained who do not think patient has a stroke but more of syncope and collapse. Recommended CTA head and neck. CTA head and neck are negative for any acute occlusion. CT cervical spine and CT pelvis are negative as well as patient did not hit his head. Chest x-ray is negative for any acute cardiopulmonary findings reviewed by me, official report is pending. Blood work showed normal white count, chemistries with mild PARI with a baseline creatinine of 1 and today is 1.4. Negative troponins Shared the results of workup with patient and family and plan of admission which they understand and agree. [facility] with patient staying in here. Discussed with Dr. Durham and patient is excepted for admission Discussed with Dr.: Other (Dr. Devin Durham) Will see patient in: hospital (observation) Counseled pt/family regarding: lab results, diagnosis, rad results Medical Desision Making - Independent Historian Additional History obtained from: Spouse - Discussion of managment Care discussed with:: hospitalist (Dr. Durham hospitalist and Dr. Morales [facility] neurology) Reviewed:: Test results Agreed on:: Treatment plan, place in obs Will see patient: in ED - Diagnostic Testing Diagnostic test were ordered, analyzed, and reviewed by me: Yes Radiological Interpretation: Interpreted by me, Reviewed by me, Teleradiologist Report - Risk of complications The pt has a mod risk of morbidity or mortality based on: Need for prescription drug management The pt has a high risk of morbidity or mortality based on: Decision regarding hospitilization or escalation of hosp level of care - Departure Departure Disposition: Observation Clinical Impression: Syncope and collapse, Scalp contusion, Contusion, hip, PARI (acute kidney injury), New onset atrial fibrillation Condition: Stable Critical Care Time: No Referrals: HOSPITAL,'S [Primary Care Provider] - Follow up/PCP as directed
--- NOTE | 2024-07-06 04:16 | XRAY ---
CLINICAL HISTORY: fall stroke like symptoms COMPARISON: none TECHNIQUE: Computed tomography of the cervical spine performed without intravenous contrast. Contiguous axial images were obtained from the skull base to T2, with sagittal and coronal reformatted images reconstructed from the axial data. CT scan was performed according to ALARA (as low as reasonably achievable). FINDINGS: Maintained cervical lordotic curvature. Multiple level anterior marginal osteophytes seen. Multiple level decreased disc height and end plate irregularities. Cervical vertebral bodies are normal in height and alignment, with no evidence of fracture or subluxation. Lateral masses of C1 are symmetrical, and the dens is intact. Prevertebral soft tissues are not widened. The remaining suprahyoid and infrahyoid soft tissues in the neck are unremarkable. No disc bulge, mass effect on the cord or neuroforaminal narrowing. Thyroid gland appears unremarkable. IMPRESSION: 1. No acute fracture or subluxation in the cervical spine. 2. Cervical spondylosis. Electronically Signed by: Claude Montgomery MD. (07/06/2024 04:12:42 EST)
--- NOTE | 2024-07-06 04:30 | XRAY ---
CLINICAL HISTORY: fall COMPARISON: none TECHNIQUE: Contiguous axial CT images of pelvis were obtained without intravenous contrast. Coronal and sagittal reconstructions were likewise performed and indicated to increase the sensitivity for detecting clinically relevant pathology. CT scan was performed according to ALARA (as low as reasonably achievable). FINDINGS: Grade II anterolisthesis of L5 over S1 with bilateral L5 pars interarticularis defect. No acute traumatic fracture or dislocation. No destructive osseous lesion. Decreased bilateral hip joint space with small periarticular osteophyte lipping and articular surface sclerosis of bilateral acetabulum at weight bearing region. The visualized muscles and tendons appear grossly unremarkable. No cortical destruction to suggest osteomyelitis. No abscess formation. No significant joint effusion. There are no soft tissue masses. Normal subcutaneous adipose space. IMPRESSION: 1. No acute traumatic fracture or dislocation. 2. Grade II anterolisthesis of L5 over S1 with bilateral L5 pars interarticularis defect - likely degenerative. 3. Mild bilateral hip osteoarthritis. Electronically Signed by: Claude Montgomery MD. (07/06/2024 04:26:36 EST)
[2024-07-06 04:40] LABS: ALBUMIN 4.1 g/dL (3.5-5.0); ANION GAP 14.5 MEQ/L (5-15); BILIRUBIN,TOTAL 0.4 mg/dL (0.2-1.3); Calcium 8.7 mg/dL (8.4-10.2); Creatinine 1 1.43 mg/dL (0.66-1.25); EST GLOMERULAR FILTRATION RATE 50.2 ML/MIN; MAGNESIUM 2.1 mg/dL (1.6-2.3); Potassium 3.6 mmol/L (3.5-5.1); Total Protein 6.6 g/dL (6.3-8.2)
[2024-07-06] MEDS ORDERED: Sodium Chloride 0.9% 500 ML 500 ML IV ONE (06:08)
[2024-07-06] MEDS: Sodium Chloride 0.9% 500 ML 500 ML IV ONE (06:10)
--- NOTE | 2024-07-06 06:12 | XRAY ---
CLINICAL HISTORY: fall COMPARISON: none TECHNIQUE: Contrast enhanced thin slice CT angiography scan of the cerebral vessels was performed with intravenous contrast. Angiographic images were processed, 3D MIP images were acquired for interpretation. Contiguous axial images were obtained. Reformatted coronal and sagittal images were also reviewed. If IV contrast material had not been administered, the likelihood of detecting abnormalities relevant to the patient's condition would have been substantially decreased. CT scan was performed according to ALARA (as low as reasonably achievable). FINDINGS: Bilateral internal carotid arteries show normal course, calibre and opacification in the canalicular and cavernous part. Their division into the anterior cerebral artery and middle cerebral artery is defined. A1, A2 and M1, M2 segments are normal on both the sides. Bilateral vertebral arteries are seen to unite the form the basilar artery in a normal fashion. Basilar artery shows normal course, caliber and opacification. Its division into the posterior cerebral arteries is defined. Bilateral P1 and P2 segments are normal. Visualized venous structures show normal opacification. No evidence of intracranial aneurysm or AV malformation is seen. IMPRESSION: 1. No evidence of stenosis or aneurysm. No evidence of dissection. Electronically Signed by: Claude Montgomery MD. (07/06/2024 06:07:56 EST)
--- NOTE | 2024-07-06 06:15 | XRAY ---
CLINICAL HISTORY: fall COMPARISON: none TECHNIQUE: Contrast enhanced thin slice CT angiography scan of the carotid vessels was performed with intravenous contrast. Angiographic images were processed, 3D MIP images were acquired for interpretation.Contiguous axial images were obtained. Reformatted coronal and sagittal images were also reviewed. If IV contrast material had not been administered, the likelihood of detecting abnormalities relevant to the patient's condition would have been substantially decreased. CT scan was performed according to ALARA (as low as reasonably achievable). FINDINGS: Atherosclerotic wall calcification of proximal segment of bilateral internal carotid arteries(left>right) with mild left side luminal narrowing of about 20%. Included great vessels of the aortic arch are grossly unremarkable. Common carotid artery, carotid Bulb, internal carotid artery , and origin of the external carotid artery are well opacified. Vertebral arteries are well opacified. Jugular veins are well opacified. Included lung apices are grossly unremarkable. Thyroid gland appears unremarkable. IMPRESSION: 1. Atherosclerotic wall calcification of proximal segment of bilateral internal carotid arteries(left>right) with mild left side luminal narrowing of about 20%. 2. No evidence of significant stenosis or aneurysm. No evidence of dissection. Electronically Signed by: Claude Montgomery MD. (07/06/2024 06:09:40 EST)
--- NOTE | 2024-07-06 06:16 | PCM.HP ---
History of Present Illness - Chief Complaint Chief Complaint: falls Date: 07/06/24 History of Present Illness: is a 79 year old male with a past medical history significant for hypertension, hyperlipidemia, PTSD and coronary artery disease who was brought to the hospital with recurrent falls over the past few months, most recently leading to L hip and rib pain from two separate falls. He does not recall what happens when he falls and there is no reported seizure activity. He was slightly hypotensive upon arrival and did initially respond to IVFs but has dropped his pressure again. CT head demonstrated possible subacute infarct of R internal capsule. He was seen by neurology who has requested CTA head/neck. He is seen via telehealth where he is resting in bed, lethargic but arousable. No fever/chills. No chest pain or shortness of breath. No nausea, vomiting or diarrhea. No dysuria, hematuria or urgency. - Review of Systems Constitutional: No Fever, No Chills Eyes: No Vision Changes, No Double Vision Ears, Nose, & Throat: No Nose Discharge, No Sinus Drainage Respiratory: No Cough, No Orthopnea, No Short Of Breath Cardiac: Syncope, No Chest Pain, No Edema, No Palpitations Abdominal/Gastrointestinal: No Abdominal Pain, No Nausea, No Vomiting, No Diarrhea Genitourinary Symptoms: No Dysuria, No Frequency, No Hematuria Musculoskeletal: Fall, Joint Pain Skin: No Cellulitis, No Rash Neurological: Dizziness, No Focal Weakness, No Headache Psychological: Emotional Lability, No Suicidal Ideations Endocrine: No Polyuria, No Polydipsia Hematologic/Lymphatic: No Easy Bleeding Medications & Allergies Home Medications: Home Medication List Aspirin 81 gm Chew [Baby Aspirin 81 mg Chew] 1 tab PO DAILY 11/26/18 [History Confirmed 07/06/24] Metoprolol Tartrate 25 mg [Lopressor 25MG Tab] 12.5 mg PO BID 11/26/18 [History Confirmed 07/06/24] Trazodone HCl 50 mg [Desyrel 50 mg] 50 mg PO HS 11/26/18 [History Confirmed 07/06/24] Rosuvastatin Calcium 60 mg PO DAILY 11/15/21 [History Confirmed 07/06/24] Cyanocobalamin (Vitamin B-12) [Vitamin B12] 2,500 mcg PO DAILY 07/06/24 [History Confirmed 07/06/24] Prazosin HCl 2 mg PO HS 07/06/24 [History Confirmed 07/06/24] Sertraline HCl 100 mg PO DAILY 07/06/24 [History Confirmed 07/06/24] Allergies/Adverse Reactions: Allergies Allergy/AdvReac Type Severity Reaction Status Date / Time Penicillins Allergy Verified 07/06/24 03:53 Sulfa (Sulfonamide Allergy Verified 07/06/24 03:53 Antibiotics) - Past Medical History Past Medical History: Yes Neurological History: No Pertinent History ENT History: No Pertinent History Cardiac History: Coronary Artery Disease, Hypertension Respiratory History: No Pertinent History Endocrine Medical History: No Pertinent History Musculoskelatal History: No Pertinent History GI Medical History: No Pertinent History History: Bladder Cancer Pyscho-Social History: Anxiety, Depression Male Reproductive Disorders: No Pertinent History Comment: PTSD, - Past Surgical History Past Surgical History: Yes Neuro Surgical History: No Pertinent History Cardiac History: No Pertinent History Respiratory Surgery: No Pertinent History GI Surgical History: No Pertinent History Genitourinary Surgical Hx: No Pertinent History Musculskeletal Surgical Hx: No Pertinent History Male Surgical History: No Pertinent History Other Surgical History: 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 and Open heart on May 29 2018, back surgery in 1966 Significant Family History: no pertinent family hx - Social History Smoking Status: Former smoker How long have you smoked: years Exposure to second hand smoke: No Alcohol: Daily Drug Use: none - Social Determinants of Health Will the patient participate in the screening: Yes Do you worry about a steady place to live?: No Do you have any problems with any of the following?: No known problems In the past 12 months,have you had to go without utilities?: No Have you or anyone in your house had to go without enough: No Transportation Issues: No Has anyone in your support network made you feel unsafe?: No - Physical Exam Vital Signs: Vital Signs - 24 hr Temp Pulse Resp BP BP Pulse Ox 07/06/24 06:06 94 L 07/06/24 05:51 52 L 17 85/50 96 07/06/24 05:41 48 H 99/50 84 L 07/06/24 05:31 55 L 14 98/62 96 07/06/24 05:30 50 L 10 L 94 L 07/06/24 05:29 55 L 5 L 95 07/06/24 05:01 107/58 07/06/24 04:50 52 L 16 106/73 92 L 07/06/24 04:40 53 L 13 110/71 96 07/06/24 04:30 49 L 12 120/64 96 07/06/24 04:21 54 L 13 100/64 95 07/06/24 04:10 89/52 94 L 07/06/24 04:00 49 L 18 96/63 95 07/06/24 03:54 52 L 13 102/66 94 L 07/06/24 03:34 51 L 26 H 83/58 94 L 07/06/24 03:30 22 76/50 93 L 07/06/24 03:29 54 L 15 75/40 92 L 07/06/24 03:28 56 L 5 L 92 L 07/06/24 03:24 97.5 F 63 17 83/58 93 L General Appearance: mild distress Neurologic Exam: depressed mood/affect Ears, Nose, Throat Exam: dry mucous membranes Neck Exam: supple Respiratory Exam: No respiratory distress Cardiovascular Exam: regular rate/rhythm Gastrointestinal/Abdomen Exam: soft Extremity Exam: No pedal edema, No swelling Skin Exam: normal color, No rash Results - Labs Lab/Micro Results: Lab Results-Last 24 Hours 07/06/24 07/06/24 07/06/24 Range/Units 02:52 03:21 03:21 WBC 6.5 (4.23-9.07) x10^3/uL RBC 4.29 L (4.63-6.08) x10^6/uL Hgb 14.3 (13.7-17.5) g/dL Hct 41.5 (40.1-51.0) % MCV 96.7 H (79.0-92.2) fL MCH 33.3 H (25.7-32.2) pg MCHC 34.5 (32.3-36.5) g/dL RDW 12.1 (11.6-14.4) % Plt Count 146 L (163-337) x10^3/uL MPV 10.5 (9.4-12.4) fL Gran % 63.6 (34.0-67.9) % Immature Gran % (Auto) 0.3 (0.001-0.429) % Nucleat RBC Rel Count 0.0 (0.00-0.2) % Eos # (Auto) 0.15 (0.04-0.54) x10^3/uL Immature Gran # (Auto) 0.02 (0.001-0.031) x10^3u/L Absolute Lymphs (auto) 1.21 L (1.32-3.57) x10^3/uL Absolute Monos (auto) 0.94 H (0.30-0.82) x10^3/uL Absolute Nucleated RBC 0.00 (0.00-0.012) x10^3u/L Lymphocytes % 18.7 L (21.8-53.1) % Monocytes % 14.5 H (5.3-12.2) % Eosinophils % 2.3 (0.8-7.0) % Basophils % 0.6 (0.2-1.2) % Absolute Granulocytes 4.12 (1.78-5.38) x10^3/uL Basophils # 0.04 (0.01-0.08) x10^3/uL Sodium 138 (135-145) mmol/L Potassium 3.6 (3.5-5.1) mmol/L Chloride 108 H (98-107) mmol/L Carbon Dioxide 19 L (22-30) mmol/L Anion Gap 14.5 (5-15) MEQ/L BUN 14 (9-20) mg/dL Creatinine 1.43 H (0.66-1.25) mg/dL Estimated GFR 50.2 ML/MIN Glucose 95 (74-106) mg/dL Lactic Acid 2.3 H (0.4-2.0) Calcium 8.7 (8.4-10.2) mg/dL Magnesium 2.1 (1.6-2.3) mg/dL Total Bilirubin 0.40 (0.2-1.3) mg/dL AST 34 (17-59) U/L ALT 22 (0-50) U/L Alkaline Phosphatase 91 (38-126) U/L Troponin I (0.000-0.033) ng/mL NT-Pro-B Natriuret Pep 1760 (<300) pg/mL Serum Total Protein 6.6 (6.3-8.2) g/dL Albumin 4.1 (3.5-5.0) g/dL 07/06/24 Range/Units 03:21 WBC (4.23-9.07) x10^3/uL RBC (4.63-6.08) x10^6/uL Hgb (13.7-17.5) g/dL Hct (40.1-51.0) % MCV (79.0-92.2) fL MCH (25.7-32.2) pg MCHC (32.3-36.5) g/dL RDW (11.6-14.4) % Plt Count (163-337) x10^3/uL MPV (9.4-12.4) fL Gran % (34.0-67.9) % Immature Gran % (Auto) (0.001-0.429) % Nucleat RBC Rel Count (0.00-0.2) % Eos # (Auto) (0.04-0.54) x10^3/uL Immature Gran # (Auto) (0.001-0.031) x10^3u/L Absolute Lymphs (auto) (1.32-3.57) x10^3/uL Absolute Monos (auto) (0.30-0.82) x10^3/uL Absolute Nucleated RBC (0.00-0.012) x10^3u/L Lymphocytes % (21.8-53.1) % Monocytes % (5.3-12.2) % Eosinophils % (0.8-7.0) % Basophils % (0.2-1.2) % Absolute Granulocytes (1.78-5.38) x10^3/uL Basophils # (0.01-0.08) x10^3/uL Sodium (135-145) mmol/L Potassium (3.5-5.1) mmol/L Chloride (98-107) mmol/L Carbon Dioxide (22-30) mmol/L Anion Gap (5-15) MEQ/L BUN (9-20) mg/dL Creatinine (0.66-1.25) mg/dL Estimated GFR ML/MIN Glucose (74-106) mg/dL Lactic Acid (0.4-2.0) Calcium (8.4-10.2) mg/dL Magnesium (1.6-2.3) mg/dL Total Bilirubin (0.2-1.3) mg/dL AST (17-59) U/L ALT (0-50) U/L Alkaline Phosphatase (38-126) U/L Troponin I 0.027 (0.000-0.033) ng/mL NT-Pro-B Natriuret Pep (<300) pg/mL Serum Total Protein (6.3-8.2) g/dL Albumin (3.5-5.0) g/dL - Radiology Impressions Radiology Exams & Impressions: Radiology Procedures Category Date Time Status CERVICAL SPINE WO CONTRAST [CT] Stat Exams 07/06/24 03:02 Completed CHEST 1 VIEW (PORTABLE) Stat Exams 07/06/24 03:[address] ANGIOGRAPHY NECK [CT] Stat Exams 07/06/24 05:17 Taken CTA HEAD W AND/OR WO CONTRAST [CT] Stat Exams 07/06/24 05:17 Taken HEAD WITHOUT CONTRAST [CT] Stat Exams 07/06/24 03:02 Completed PELVIS WITHOUT CONTRAST [CT] Stat Exams 07/06/24 02:49 Completed Assessment/Plan (1) Syncope and collapse Current Visit: Yes Status: Acute Assessment & Plan: Multiple recent falls, 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 Follow up CTA head/neck 2. Will obtain MRI brain w/wo contrast 3. PT eval 4. DVT/GI prophylaxis 5. Plans per neuro 6. ASA Code(s): R55 - SYNCOPE AND COLLAPSE (2) PARI (acute kidney injury) Current Visit: Yes Status: Acute Assessment & Plan: Likely from prerenal azotemia but should rule out rhabdo with recent falls 1. IVFs 2. Check CPK 3. Check urine lytes, urine creatinine 4. Follow I/os 5. Watch electrolytes, creatinine closely Code(s): N17.9 - ACUTE KIDNEY FAILURE, UNSPECIFIED (3) Hypertensive chronic kidney disease with stage 1 through stage 4 chronic kidney disease, or unspecified chronic kidney disease Current Visit: Yes Status: Acute Assessment & Plan: Now hypotensive likely from hypovolemia 1. Hold bp meds, will give IVFs for bp support 2. Maintain low Na diet 3. Monitor bp readings Code(s): I12.9 - HYPERTENSIVE CHRONIC KIDNEY DISEASE W STG 1-4/UNSP CHR KDNY (4) Metabolic acidosis Current Visit: Yes Status: Acute Assessment & Plan: Secondary to PARI/lactic acidosis 1. IVFs 2. Trend lactic acid 3. Monitor ABG prn Code(s): E87.20 - ACIDOSIS, UNSPECIFIED Telemedicine Encounter - Telemedicine Encounter Telemedicine Encounter: "The entirety of this encounter was performed via Telemedicine" This visit was performed using real-time audio and video connection between my location and thepatients locationwith the assistance of a surrogateat the patients location. Written or verbal consent was obtained from the patient/guardian to [facility]. Any patient questions regarding the telemedicine interaction were answered.
[2024-07-06 06:57] LABS: Appearance Clear (Clear); Bacteria None Seen /HPF (None Seen); Bilirubin Negative (Negative); Blood Negative (Negative); Epithelial Cells None Seen /HPF (None Seen); Glucose, Urine Negative (Negative); Hyaline Casts NONE SEEN /LPF (0-2); Ketones Negative (Negative); Leukocyte Esterase Negative (Negative); Nitrite Negative (Negative); Protein,Urine Dip Negative (Negative); RBC 0-2 /HPF (0-5); Urobilinogen 0.2 mg/dL (0.2); WBC 0-2 /HPF (0-5)
--- NOTE | 2024-07-06 09:45 | XRAY ---
Indication: Status post fall. Comparison: August 04, 2022 Portable chest again demonstrates a few tiny bilateral calcified granulomas. No focal infiltrate, consolidation, large effusion, or pneumothorax. Heart not enlarged again with cardiac valve replacement. Bony thorax intact again with osteopenia, degenerative changes, old left rib fractures, and sternotomy wires. Impression: Continued nonacute chest with chronic features.
[2024-07-06] MEDS: Protonix 40MG Tablet PO SCH (10:53)
[2024-07-06] MEDS: Vitamin B-12 500 MCG PO SCH (10:53)
[2024-07-06] MEDS: ZOCOR 20MG PO SCH (10:53)
[2024-07-06] MEDS: ECOTRIN 81 MG PO SCH (10:53)
[2024-07-06] MEDS: ZOLOFT 50 MG TABLET PO SCH (10:54)
--- NOTE | 2024-07-06 14:12 | XRAY ---
Indication: Cerebrovascular accident. Recurrent falls. Negative CT head, CTA neck, and CTA head exams. Sagittal, coronal, and axial MRI brain performed using pre and post T1, T2, FLAIR, diffusion, and ADC sequences. 15 cc Dotarem contrast used. Comparison: None Age-appropriate global atrophy and mild periventricular degenerative micro-ischemia bilaterally. 1 cm focus remote infarct left mid periventricular white matter. No acute intracranial hemorrhage, abnormal extra-axial fluid collection, or mass effect. Diffusion images negative for restricted signal. Following gadolinium, there is no abnormal enhancing intra or extra-axial mass. Fourth ventricle is midline without hydrocephalus. 7/8 cranial nerve complex bilaterally symmetric. Normal flow-void signal within the major intracerebral circulation. Normal-appearing craniocervical junction and sella turcica. Paranasal sinuses are clear. Impression: 1. Atrophy and degenerative micro-ischemia within normal limits. 2. 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 3. No acute intracranial abnormalities or evidence for evolving large vessel territorial stroke. 4. Negative contrast exam.
[2024-07-06] MEDS: ATARAX 25 MG PO SCH (19:07)
[2024-07-06 22:47] LABS: CREATININE,URINE RANDOM 50.6 MG/DL
[2024-07-06] MEDS: DESYREL 50 MG PO SCH (22:51)
[2024-07-06] MEDS: Ambien 10 MG PO SCH (22:51)
[2024-07-06] MEDS: BUSPAR 5 MG PO SCH (22:51)
[2024-07-07 06:21] LABS: Hematocrit 41.9 % (40.1-51.0); Hemoglobin 14.1 g/dL (13.7-17.5); Mean Cell Volume 96.5 fL (79.0-92.2); Mean Corpuscular Hemoglobin 32.5 pg (25.7-32.2); Mean Corpuscular Hgb Concent. 33.7 g/dL (32.3-36.5); Mean Platelet Volume 10.5 fL (9.4-12.4); Platelet Count 148 x10^3/uL (163-337); Red Blood Count 4.34 x10^6/uL (4.63-6.08); Red Cell Distribution Width 12.4 % (11.6-14.4); White Blood Count 7.3 x10^3/uL (4.23-9.07)
[2024-07-07 06:47] LABS: ALBUMIN 3.7 g/dL (3.5-5.0); ANION GAP 11.8 MEQ/L (5-15); BILIRUBIN,TOTAL 0.5 mg/dL (0.2-1.3); Calcium 8.4 mg/dL (8.4-10.2); Creatinine 1 1.26 mg/dL (0.66-1.25); EST GLOMERULAR FILTRATION RATE 58.4 ML/MIN; Potassium 4.2 mmol/L (3.5-5.1); Total Protein 6.2 g/dL (6.3-8.2)
[2024-07-07] MEDS: Sodium Chloride 0.9% 1000 ML 1,000 ML IV SCH (09:19)
--- NOTE | 2024-07-07 11:54 | PCM.NOTE ---
Date and Time: 07/07/24 1146 Subjective Assessment: 07/07/24 is a 79 year old male with a past medical history significant for hypertension, hyperlipidemia, PTSD, open heart surgery and coronary artery disease, with hx of fib in the past not on anticoagulation. He follows [facility]. He was brought to the hospital with recurrent falls over the past few months, most recently leading to L hip and rib pain from two separate falls. He does not recall what happens when he falls and there is no reported seizure activity. He was slightly hypotensive upon arrival and did initially respond to IVFs but has dropped his pressure again. CT head demonstrated possible subacute infarct of R internal capsule. He was seen by neurology who has requested CTA head/neck. He is seen via telehealth where he is resting in bed, lethargic but arousable. No fever/chills. No chest pain or shortness of breath. No nausea, vomiting or diarrhea. No dysuria, hematuria or urgency. Pt sitting in chair. Discussed MRI negative. Orthostats ordered. Pt reports he has passed out 4 times this past month. Cardiology consult pending. ECHO results pending. He continues to have PARI which is improving. Continue IVF. Per PT he is very unstable and before they could work with him OP they need cards consult/ recs. EKG on admission shows A- Fib, today his heart rhythm is NSR. He is not on any blood thinners OP. Will start Eliquis 5mg BID. He denies CP, SOB, abd. pain, N/V/D. - Review of Systems Constitutional: Weakness, No Fever, No Chills Eyes: No Symptoms Ears, Nose, & Throat: No Symptoms Respiratory: No Cough, No Short Of Breath Cardiac: No Chest Pain, No Edema, No Syncope Abdominal/Gastrointestinal: No Abdominal Pain, No Nausea, No Vomiting, No Diarrhea Genitourinary Symptoms: No Dysuria Musculoskeletal: No Back Pain, No Neck Pain Skin: No Rash Neurological: No Dizziness, No Focal Weakness, No Sensory Changes Psychological: No Symptoms Endocrine: No Symptoms Hematologic/Lymphatic: No Symptoms Immunological/Allergic: No Symptoms Objective Exam General Appearance: no apparent distress, alert Neurologic Exam: alert, oriented x 3, cooperative, normal mood/affect, nml cerebellar function, sensation nml, motor weakness, No motor deficits Skin Exam: normal color, warm, dry Eye Exam: PERRL, EOMI, eyes nml inspection Ears, Nose, Throat Exam: normal ENT inspection, pharynx normal, moist mucous membranes Neck Exam: normal inspection, non-tender, supple, full range of motion Respiratory Exam: normal breath sounds, lungs clear, No respiratory distress Cardiovascular Exam: regular rate/rhythm, normal heart sounds Gastrointestinal/Abdomen Exam: soft, No tenderness, No mass Extremity Exam: normal inspection, normal range of motion Back Exam: normal inspection, normal range of motion, No CVA tenderness, No vertebral tenderness Male Genitalia Exam: deferred Rectal Exam: deferred Objective Data Vital Signs: Vital Signs - 24 hr Temp Pulse Resp BP Pulse Ox 07/07/24 11:39 97.8 F 73 16 148/68 92 L 07/07/24 07:31 97.6 F 75 16 126/71 91 L 07/07/24 04:00 97.1 F 66 18 137/95 93 L 07/07/24 00:00 97.9 F 60 18 140/68 95 07/06/24 20:00 98.5 F 62 18 137/67 95 07/06/24 16:00 20 07/06/24 15:00 98.6 F 71 20 113/59 94 L 07/06/24 12:00 16 Pain Assessment - Last Documented Pain Intensity 0 Intake and Output: Intake & Output 07/04/24 07/05/24 07/06/24 07/07/24 11:59 11:59 11:59 11:59 Intake Total 360 600 Output Total 1275 Balance 360 -675 Weight 87 kg Lab Results: Lab Results-Last 24 Hours 07/06/24 07/06/24 07/06/24 Range/Units 06:21 07:30 07:30 WBC (4.23-9.07) x10^3/uL RBC (4.63-6.08) x10^6/uL Hgb (13.7-17.5) g/dL Hct (40.1-51.0) % MCV (79.0-92.2) fL MCH (25.7-32.2) pg MCHC (32.3-36.5) g/dL RDW (11.6-14.4) % Plt Count (163-337) x10^3/uL MPV (9.4-12.4) fL Sodium (135-145) mmol/L Potassium (3.5-5.1) mmol/L Chloride (98-107) mmol/L Carbon Dioxide (22-30) mmol/L Anion Gap (5-15) MEQ/L BUN (9-20) mg/dL Creatinine (0.66-1.25) mg/dL Estimated GFR ML/MIN Glucose (74-106) mg/dL Calcium (8.4-10.2) mg/dL Magnesium (1.6-2.3) mg/dL Total Bilirubin (0.2-1.3) mg/dL AST (17-59) U/L ALT (0-50) U/L Alkaline Phosphatase (38-126) U/L Creatine Kinase 292 H (55-170) U/L Troponin I 0.020 (0.000-0.033) ng/mL Serum Total Protein (6.3-8.2) g/dL Albumin (3.5-5.0) g/dL Ur Random Creatinine 50.6 MG/DL Urine Sodium 30 (30-90) mmol/L 07/07/24 07/07/24 07/07/24 Range/Units 06:15 06:15 08:10 WBC 7.3 (4.23-9.07) x10^3/uL RBC 4.34 L (4.63-6.08) x10^6/uL Hgb 14.1 (13.7-17.5) g/dL Hct 41.9 (40.1-51.0) % MCV 96.5 H (79.0-92.2) fL MCH 32.5 H (25.7-32.2) pg MCHC 33.7 (32.3-36.5) g/dL RDW 12.4 (11.6-14.4) % Plt Count 148 L (163-337) x10^3/uL MPV 10.5 (9.4-12.4) fL Sodium 141 (135-145) mmol/L Potassium 4.2 (3.5-5.1) mmol/L Chloride 107 (98-107) mmol/L Carbon Dioxide 26 (22-30) mmol/L Anion Gap 11.8 (5-15) MEQ/L BUN 17 (9-20) mg/dL Creatinine 1.26 H (0.66-1.25) mg/dL Estimated GFR 58.4 ML/MIN Glucose 95 (74-106) mg/dL Calcium 8.4 (8.4-10.2) mg/dL Magnesium 2.0 (1.6-2.3) mg/dL Total Bilirubin 0.50 (0.2-1.3) mg/dL AST 27 (17-59) U/L ALT 21 (0-50) U/L Alkaline Phosphatase 105 (38-126) U/L Creatine Kinase 110 (55-170) U/L Troponin I (0.000-0.033) ng/mL Serum Total Protein 6.2 L (6.3-8.2) g/dL Albumin 3.7 (3.5-5.0) g/dL Ur Random Creatinine MG/DL Urine Sodium (30-90) mmol/L Radiology Exams: Radiology Procedures Category Date Time Status CERVICAL SPINE WO CONTRAST [CT] Stat Exams 07/06/24 03:02 Completed CHEST 1 VIEW (PORTABLE) Stat Exams 07/06/24 03:[address] ANGIOGRAPHY NECK [CT] Stat Exams 07/06/24 05:17 Completed CTA HEAD W AND/OR WO CONTRAST [CT] Stat Exams 07/06/24 05:17 Completed ECHO W/2D AND DOPPLER [US] Routine Exams 07/06/24 09:22 Taken HEAD WITHOUT CONTRAST [CT] Stat Exams 07/06/24 03:02 Completed MRI BRAIN W & W/O CONTRAST [MRI] Stat Exams 07/06/24 09:22 Completed PELVIS WITHOUT CONTRAST [CT] Stat Exams 07/06/24 02:49 Completed Multi-Disciplinary Progress Notes: Multi-Disciplinary Progress Notes 07/06/24 15:01 Case Management Note by Blanche Menjivar [facility]- THEY REPORT THEY WILL ORDER PATIENT A ROLLATOR BUT THIS TAKES 1-2 WEEKS TO GET. THEY HAVE WALKERS AT [facility] THAT PATIENT CAN POULTRY BUYER, THEY CLOSE TODAY AT 4. S/W MARIANO BISHOP- SHE STATED THIS WOULD BE OKAY UNTIL ROLLATOR AVAILABLE. PATIENT'S NOTIFIED, SHE IS LEAVING NOW TO GO GET WALKER. ALSO SUBMITTED REQUEST FOR OTPT PHYSICAL THERAPY TO BE DONE AT [facility]- THEY WILL NEED CLINICAL FAXED TO THEM AT [phone]. WILL FAX CLINICAL WHEN PT EVAL AVAILABLE. NOTIFIED OF THE ABOVE Initialized on 07/06/24 15:01 - END OF NOTE Assessment/Plan (1) Atrial fibrillation Current Visit: Yes Status: Acute Assessment & Plan: - Seen on EKG on admission- reports a past hx of a-fib. - Started Eliquis 5mg BID- not on anticoagulation prior to admission - ECHO results pending - Cardiology consult pending - In NSR today. Code(s): I48.91 - UNSPECIFIED ATRIAL FIBRILLATION (2) Syncope and collapse Current Visit: Yes Status: Acute Assessment & Plan: Multiple recent falls, 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 Follow up CTA head/neck 2. Will obtain MRI brain 3. PT eval 4. DVT/GI prophylaxis 5. Plans per neuro- note reviewed and agree with plan of care 6. ASA 7. MRI negative 8. Radiology results reviewed 9. CBC, CMP reviewed 10. ECHO results pending 11. Cardiology consult Code(s): R55 - SYNCOPE AND COLLAPSE (3) PARI (acute kidney injury) Current Visit: Yes Status: Acute Assessment & Plan: Likely from prerenal azotemia but should rule out rhabdo with recent falls 1. IVFs 2. Check CPK- 110 today 3. Check urine lytes, urine creatinine 4. Follow I/o's 5. Watch electrolytes, creatinine closely - Creat. 1.26- BL normal - Continue IVF Code(s): N17.9 - ACUTE KIDNEY FAILURE, UNSPECIFIED (4) Hypertensive chronic kidney disease with stage 1 through stage 4 chronic kidney disease, or unspecified chronic kidney disease Current Visit: Yes Status: Acute Assessment & Plan: - BP stable - Continue home meds - CBC, CMP reviewed - Creat. 1.26- BL normal - Continue IVF Code(s): I12.9 - HYPERTENSIVE CHRONIC KIDNEY DISEASE W STG 1-4/UNSP CHR KDNY (5) Metabolic acidosis Current Visit: Yes Status: Acute Assessment & Plan: Secondary to PARI/lactic acidosis 1. IVFs 2. Trend lactic acid 3. Monitor ABG prn 4. Repeat lactic acid on admission 1.1 5. Resolved today 2 Code(s): E87.20 - ACIDOSIS, UNSPECIFIED (6) Scalp contusion Current Visit: Yes Status: Acute Assessment & Plan: - small and scabbed- back of head Code(s): S00.03XA - CONTUSION OF SCALP, INITIAL ENCOUNTER (7) Weakness Current Visit: Yes Status: Acute Assessment & Plan: - PT eval and treat VTE: Eliquis PPI: Protonix Next of KIN: Code status: Full D/C plan: 1-2 days Code(s): R53.1 - WEAKNESS
[2024-07-07] MEDS: ELIQUIS 2.5 MG TABLET PO SCH (13:09)
--- NOTE | 2024-07-07 14:43 | PCM.CONS ---
History of Present Illness - Date of Consult Date of Encounter: 07/07/24 Consulting Running Specialist: ANDERS DAMIAN MD Requesting Provider: Attending Provider: JOSUE JORDAN MD Primary Care Provider: PCP: [facility] - Consult Narrative Reason for Consult: Syncope HPI: Patient is a 79M who denies fevers, chills, nausea, vomiting, diarrhea, syncope, presyncope, dysphagia,odynophagia, orthopnea, paroxysmal nocturnal dyspnea, shortness of breath, chest pain, refluxsymptoms, belly pain, dysuria, hematuria, melena, hematochezia, seizures, paralysis, or other neurological changes. All other systems have been reviewed and are negative. cc:: The requesting physician will be sent a copy of the consult. - Past Medical History Past Medical History: Yes Neurological History: No Pertinent History ENT History: No Pertinent History Cardiac History: Coronary Artery Disease, Hypertension Respiratory History: No Pertinent History Endocrine Medical History: No Pertinent History Musculoskelatal History: No Pertinent History GI Medical History: No Pertinent History History: Bladder Cancer Pyscho-Social History: Anxiety, Depression Male Reproductive Disorders: No Pertinent History Comment: PTSD, - Past Surgical History Past Surgical History: Yes Neuro Surgical History: No Pertinent History Cardiac History: No Pertinent History Respiratory Surgery: No Pertinent History GI Surgical History: No Pertinent History Genitourinary Surgical Hx: No Pertinent History Musculskeletal Surgical Hx: No Pertinent History Male Surgical History: No Pertinent History Other Surgical History: 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 and Open heart on May 29 2018, back surgery in 1967. Bladder cancer Significant Family History: no pertinent family hx - Social History Smoking Status: Never smoker How long have you smoked: years Exposure to second hand smoke: No Alcohol: Daily Drug Use: none - Social Determinants of Health Will the patient participate in the screening: Yes Do you worry about a steady place to live?: No Do you have any problems with any of the following?: No known problems In the past 12 months,have you had to go without utilities?: No Have you or anyone in your house had to go without enough: No Transportation Issues: No Has anyone in your support network made you feel unsafe?: No Does the patient want assistance with any of the above?: No Medications & Allergies Home Medications: Home Medication List Aspirin 81 gm Chew [Baby Aspirin 81 mg Chew] 1 tab PO DAILY 11/26/18 [History Confirmed 07/06/24] Metoprolol Tartrate 25 mg [Lopressor 25MG Tab] 12.5 mg PO BID 11/26/18 [History Confirmed 07/06/24] Trazodone HCl 50 mg [Desyrel 50 mg] 75 mg PO HS 11/26/18 [History Confirmed 07/06/24] Rosuvastatin Calcium 40 mg PO DAILY 11/15/21 [History Confirmed 07/06/24] Buspirone HCl 5 mg [Buspar 5 mg] 5 mg PO BID 07/06/24 [History Confirmed 07/06/24] Cyanocobalamin (Vitamin B-12) [Vitamin B12] 2,500 mcg PO DAILY 07/06/24 [History Confirmed 07/06/24] Eszopiclone [Lunesta] 2 mg PO HS 07/06/24 [History Confirmed 07/06/24] Hydroxyzine HCl 25 mg [Atarax 25 mg] 10 mg PO DAILY 07/06/24 [History Confirmed 07/06/24] Prazosin HCl 2 mg PO HS 07/06/24 [History Confirmed 07/06/24] Sertraline HCl 100 mg PO DAILY 07/06/24 [History Confirmed 07/06/24] Allergies/Adverse Reactions: Allergies Allergy/AdvReac Type Severity Reaction Status Date / Time Penicillins Allergy Verified 07/06/24 03:53 Sulfa (Sulfonamide Allergy Verified 07/06/24 03:53 Antibiotics) Exam - Vitals Vital Signs: Vital Signs - 24 hr Temp Pulse Resp BP Pulse Ox 07/07/24 12:00 16 07/07/24 11:39 97.8 F 73 16 148/68 92 L 07/07/24 08:00 16 07/07/24 07:31 97.6 F 75 16 126/71 91 L 07/07/24 04:00 97.1 F 66 18 137/95 93 L 07/07/24 00:00 97.9 F 60 18 140/68 95 07/06/24 20:00 98.5 F 62 18 137/67 95 07/06/24 16:00 20 07/06/24 15:00 98.6 F 71 20 113/59 94 L SpO2: 92 Results Vital Signs: Vital Signs - 24 hr Temp Pulse Resp BP Pulse Ox 07/07/24 12:00 16 07/07/24 11:39 97.8 F 73 16 148/68 92 L 07/07/24 08:00 16 07/07/24 07:31 97.6 F 75 16 126/71 91 L 07/07/24 04:00 97.1 F 66 18 137/95 93 L 07/07/24 00:00 97.9 F 60 18 140/68 95 07/06/24 20:00 98.5 F 62 18 137/67 95 07/06/24 16:00 20 07/06/24 15:00 98.6 F 71 20 113/59 94 L Pain Assessment - Last Documented Pain Intensity 0 Intake and Output: Intake & Output 07/05/24 07/06/24 07/07/24 07/08/24 11:59 11:59 11:59 11:59 Intake Total 360 600 480 Output Total 1275 350 Balance 360 -675 130 Weight 87 kg LAB: I have reviewed the Labs in [facility]. Radiology Exams: Radiology Procedures Category Date Time Status CERVICAL SPINE WO CONTRAST [CT] Stat Exams 07/06/24 03:02 Completed CHEST 1 VIEW (PORTABLE) Stat Exams 07/06/24 03:[address] ANGIOGRAPHY NECK [CT] Stat Exams 07/06/24 05:17 Completed CTA HEAD W AND/OR WO CONTRAST [CT] Stat Exams 07/06/24 05:17 Completed ECHO W/2D AND DOPPLER [US] Routine Exams 07/06/24 09:22 Taken HEAD WITHOUT CONTRAST [CT] Stat Exams 07/06/24 03:02 Completed MRI BRAIN W & W/O CONTRAST [MRI] Stat Exams 07/06/24 09:22 Completed PELVIS WITHOUT CONTRAST [CT] Stat Exams 07/06/24 02:49 Completed TTE 07/06/2024: 1. Technically difficult study. 2. Mildly dilated atria. Ventricular chamber sizes are normal. 3. Severe concentric left ventricular hypertrophy. 4. Normal left ventricular systolic function without obvious wall motion abnormalities. Estimated EF 60-65%. 5. Unable to assess grade of diastolic dysfunction due to patient's underlying atrial fibrillation. 6. Normal right ventricular systolic function. 7. 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 Vmax 2.4 m/s, mean gradient 10 mmHg, DVI 0.35. 8. Doppler: Mild mitral regurgitation. 9. Mildly elevated PA systolic pressure. 10. Mildly elevated right atrial pressure. 11. No pericardial effusion. CXR (AP) 07/06/2024: A few tiny bilateral calcified granulomas. No focal infiltrate, consolidation, large effusion, or pneumothorax. Heart not enlarged again with cardiac valve replacement. Bony thorax intact again with osteopenia, degenerative changes, old left rib fractures, and sternotomy wires. Impression: Continued nonacute chest with chronic features. MRI of Brain 07/06/2024: 1. Atrophy and degenerative micro-ischemia within normal limits. 2. 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 3. No acute intracranial abnormalities or evidence for evolving large vessel territorial stroke. 4. Negative contrast exam. CTA of head 07/06/2024: No evidence of stenosis or aneurysm. No evidence of dissection. CTA of Neck 07/06/2024: 1. Atherosclerotic wall calcification of proximal segment of bilateral internal carotid arteries(left>right) with mild left side luminal narrowing of about 20%. 2. No evidence of significant stenosis or aneurysm. No evidence of dissection. Tracing 1 Attestation: I have reviewed this EKG and interpreted as documented below. EKG Narrative: ECGs 07/06/2024: Atrial fibrillation with slow ventricular response at 55 bpm. Old i nferior infarct. Nonspecific ST abnormality. 08/04/2022: NSR at 68 bpm. Old inferior FL. Telemetry: 07/07/2024: NSR. Tracing not available showing the conversion of atrial fibrillation to sinus rhythm. 07/06/2024: Atrial fibrillation with controlled ventricular response. Multi-Disciplinary Progress Notes: Multi-Disciplinary Progress Notes 07/07/24 14:35 Radiology Note by ANDERS DAMIAN TRANSTHORACIC ECHOCARDIOGRAM 07/06/2024: 1. Technically difficult study. 2. Mildly dilated atria. Ventricular chamber sizes are normal. 3. Severe concentric left ventricular hypertrophy. 4. Normal left ventricular systolic function without obvious wall motion abnormalities. Estimated EF 60-65%. 5. Unable to assess grade of diastolic dysfunction due to patient's underlying atrial fibrillation. 6. Normal right ventricular systolic function. 7. 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 Vmax 2.4 m/s, mean gradient 10 mmHg, DVI 0.35. 8. Doppler: Mild mitral regurgitation. 9. Mildly elevated PA systolic pressure. 10. Mildly elevated right atrial pressure. 11. No pericardial effusion. Anders Damian MD Initialized on 07/07/24 14:35 - END OF NOTE 07/06/24 15:01 Case Management Note by Blanche Menjivar [facility]- THEY REPORT THEY WILL ORDER PATIENT A ROLLATOR BUT THIS TAKES 1-2 WEEKS TO GET. THEY HAVE WALKERS AT [facility] THAT PATIENT CAN PLUMBER PIPE FITTING, THEY CLOSE TODAY AT 4. [facility]- SHE STATED THIS WOULD BE OKAY UNTIL ROLLATOR AVAILABLE. PATIENT'S NOTIFIED, SHE IS LEAVING NOW TO GO GET WALKER. ALSO SUBMITTED REQUEST FOR OTPT PHYSICAL THERAPY TO BE DONE AT [facility]- THEY WILL NEED CLINICAL FAXED TO THEM AT [phone]. WILL FAX CLINICAL WHEN PT EVAL AVAILABLE. NOTIFIED OF THE ABOVE Initialized on 07/06/24 15:01 - END OF NOTE Assessment & Plan (1) Syncope and collapse Current Visit: Yes Status: Acute Assessment & Plan: Appears to be secondary to orthostatic hypotension in a volume depleted state. This is not related to autonomic dysfunction. After volume repletion with IV fluids, formal orthostatics are negative. There are other potential causes related to arrhythmias discussed below, but these would not solely be related to orthostatic changes in position. Code(s): R55 - SYNCOPE AND COLLAPSE (2) Volume depletion Current Visit: Yes Status: Acute Assessment & Plan: Suspect secondary to his chronic heavy alcohol use and his insufficient intake of other fluids. Recommended that patient abstain from alcohol and start drinking electorolyte drinks like Propel or Pedialyte when he first wakes up in am. Code(s): E86.9 - VOLUME DEPLETION, UNSPECIFIED (3) Paroxysmal atrial fibrillation Current Visit: Yes Status: Acute Assessment & Plan: Newly diagnosed at admission. Ventricular response controlled on metoprolol. Spontaneously converted to sinus rhythm within 24 hours of admission. At a high risk for a cardioembolic event in the setting of his newly diagnosed hypertrophic cardiomyopathy. His risk of having a CVA off systemic anticoagulation is greater than the risk of a significant bleed on systemic anticoagulation. The importance of abstaining from alcohol was stressed with him being on anticoagulation. ELiquis 5 mg by mouth BID has already been started. Continue current dose of metoprolol. He will need a 30 day ambulatory monitor to document his atrial fib burden and to determine if any arrhythmias are associated with his falls/syncope. Code(s): I48.0 - PAROXYSMAL ATRIAL FIBRILLATION (4) Hypertrophic cardiomyopathy Current Visit: Yes Status: Chronic Assessment & Plan: Severe concentric LVH documented on yesterday's echocardiogram. There was not a resting gradient in his LVOT. Gradient not assessed with Valsava maneuver. His HTN has always been controlled. Need to exclude cardiac amyloidosis. Recommend first evaluating with a cardiac MRI with contrast (to evaluate for an infiltrative process like amyloidosis and assess for late gadolinium enhancement). He will need to follow-up with his camera assembler to evaluate this cardiomyopathy. His cardiomyopathy may be contibuting to his dyspnea on exertion but need to exclude coronary ischemia. A 30 day ambulatory monitor can evaluate for significant ventricular tachyarrhythmias. Code(s): I42.2 - OTHER HYPERTROPHIC CARDIOMYOPATHY (5) Coronary artery disease involving autologous artery coronary bypass graft Current Visit: Yes Status: Acute Assessment & Plan: Denies any definite angina since his CABG but admits to rare chest discomfort below his left costal margin after eating. His dyspnea on exertion could be related to coronary ischemia. It has been at least two years since his last chemical MPS. Recommend having his camera assembler repeat his regadenoson MPS. Code(s): I25.810 - ATHEROSCLEROSIS OF CABG W/O ANGINA PECTORIS (6) Acute renal failure Current Visit: No Status: Acute Qualifiers: Acute renal failure type: unspecified Qualified Code(s): N17.9 - Acute kidney failure, unspecified Assessment & Plan: Secondary to volume depletion. Condition is improving with IV fluids. Admonished patient to abstain from alcohol. - Encounter Encounter: "The entirety of this encounter was performed via Telemedicine using audio and visual "
[2024-07-07] MEDS ORDERED: VALIUM 10 MG/2 ML SYRINGE IV PRN (18:36)
[2024-07-08 06:25] LABS: Hematocrit 38.8 % (40.1-51.0); Hemoglobin 13.3 g/dL (13.7-17.5); Mean Cell Volume 95.8 fL (79.0-92.2); Mean Corpuscular Hemoglobin 32.8 pg (25.7-32.2); Mean Corpuscular Hgb Concent. 34.3 g/dL (32.3-36.5); Mean Platelet Volume 10.5 fL (9.4-12.4); Platelet Count 135 x10^3/uL (163-337); Red Blood Count 4.05 x10^6/uL (4.63-6.08); Red Cell Distribution Width 12.1 % (11.6-14.4); White Blood Count 7.2 x10^3/uL (4.23-9.07)
[2024-07-08 06:49] LABS: ALBUMIN 3.6 g/dL (3.5-5.0); BILIRUBIN,TOTAL 0.6 mg/dL (0.2-1.3); Calcium 8.5 mg/dL (8.4-10.2); Creatinine 1 1.1 mg/dL (0.66-1.25); EST GLOMERULAR FILTRATION RATE 68.7 ML/MIN; Total Protein 6.1 g/dL (6.3-8.2)
[2024-07-08 07:11] LABS: Slide Review YES
[2024-07-08] MEDS: DUONEB 0.5-3 MG/3 ml Neb IH ONE (09:26)
[2024-07-08] MEDS: THERAGRAN MULTIVITAMIN PO SCH (09:41)
[2024-07-08] MEDS: VITAMIN B-1 100 MG PO SCH (09:41)
[2024-07-08] MEDS: FOLATE 1 MG PO SCH (09:41)
[2024-07-08] MEDS ORDERED: THIAMINE 200 MG/2 ML IM SCH (10:00)
--- NOTE | 2024-07-08 13:39 | PCM.NOTE ---
Date and Time: 07/08/24 1327 Subjective Assessment: 07/07/24 is a 79 year old male with a past medical history significant for hypertension, hyperlipidemia, PTSD, open heart surgery and coronary artery disease, with hx of fib in the past not on anticoagulation. He follows [facility]. He was brought to the hospital with recurrent falls over the past few months, most recently leading to L hip and rib pain from two separate falls. He does not recall what happens when he falls and there is no reported seizure activity. He was slightly hypotensive upon arrival and did initially respond to IVFs but has dropped his pressure again. CT head demonstrated possible subacute infarct of R internal capsule. He was seen by neurology who has requested CTA head/neck. He is seen via telehealth where he is resting in bed, lethargic but arousable. No fever/chills. No chest pain or shortness of breath. No nausea, vomiting or diarrhea. No dysuria, hematuria or urgency. Pt sitting in chair. Discussed MRI negative. Orthostats ordered. Pt reports he has passed out 4 times this past month. Cardiology consult pending. ECHO results pending. He continues to have PARI which is improving. Continue IVF. Per PT he is very unstable and before they could work with him OP they need cards consult/ recs. EKG on admission shows A- Fib, today his heart rhythm is NSR. He is not on any blood thinners OP. Will start Eliquis 5mg BID. He denies CP, SOB, abd. pain, N/V/D. 07/08/24 Pt resting in bed. He stood to use the restroom and had continued weakness and shaking of BLLE. and pt would like pt to go to [facility] for rehab. Pt discussed his son is there d/t a stroke and would like to be there close to hime. does not feel she can get him in the home as they have stairs. Discussed pt case with cardiology yesterday. Found out pt drinks alcohol daily. He drinks 2 beers, 3 shots of whiskey and an unknown amount of schnapps daily. Recommended cessation and alcohol withdrawal protocol started. Passing out and falling at home likely related to a combination of a-fib, dehydration, and alcohol use. Ambien stopped at bedtime. PARI resolved today. 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 He has severe LVH per echo results. Per cardiology: need to exclude cardiac amyloidosis, recommend first evaluating with a cardiac MRI with contrast. This will have to be done at [facility] as we are unable to do this here. Pt denies Cp, abd. pain, N/V/D. He has increased SOB with walking but per pt this is a long time problem. He will need to f/u with cardiology OP. - Review of Systems Constitutional: Weakness, No Fever, No Chills Eyes: No Symptoms Ears, Nose, & Throat: No Symptoms Respiratory: Short Of Breath, No Cough Cardiac: No Chest Pain, No Edema, No Syncope Abdominal/Gastrointestinal: No Abdominal Pain, No Nausea, No Vomiting, No Diarrhea Genitourinary Symptoms: No Dysuria Musculoskeletal: No Back Pain, No Neck Pain Skin: No Rash Neurological: No Dizziness, No Focal Weakness, No Sensory Changes Psychological: No Symptoms Endocrine: No Symptoms Hematologic/Lymphatic: No Symptoms Immunological/Allergic: No Symptoms Objective Exam General Appearance: no apparent distress, alert Neurologic Exam: alert, oriented x 3, cooperative, normal mood/affect, nml cerebellar function, sensation nml, motor weakness, No motor deficits Skin Exam: normal color, warm, dry Eye Exam: PERRL, EOMI, eyes nml inspection Ears, Nose, Throat Exam: normal ENT inspection, pharynx normal, moist mucous membranes Neck Exam: normal inspection, non-tender, supple, full range of motion Respiratory Exam: normal breath sounds, lungs clear, No respiratory distress Cardiovascular Exam: regular rate/rhythm, normal heart sounds Gastrointestinal/Abdomen Exam: soft, No tenderness, No mass Extremity Exam: normal inspection, normal range of motion Back Exam: normal inspection, normal range of motion, No CVA tenderness, No vertebral tenderness Male Genitalia Exam: deferred Rectal Exam: deferred Objective Data Vital Signs: Vital Signs - 24 hr Temp Pulse Resp BP Pulse Ox 07/08/24 12:00 16 07/08/24 11:20 97.9 F 86 16 139/68 92 L 07/08/24 09:29 71 22 94 L 07/08/24 08:00 16 07/08/24 07:16 97.6 F 61 16 150/76 91 L 07/08/24 04:00 97.9 F 70 16 138/84 92 L 07/08/24 00:00 18 07/07/24 23:54 98.0 F 68 16 185/80 93 L 07/07/24 20:09 92 L 07/07/24 20:00 99.2 F 72 18 156/75 93 L 07/07/24 15:02 97.8 F 73 16 150/67 92 L Pain Assessment - Last Documented Pain Intensity 0 Intake and Output: Intake & Output 07/06/24 07/07/24 07/08/24 07/09/24 11:59 11:59 11:59 11:59 Intake Total 632 709 8902 380 Output Total 1275 1600 400 Balance 360 -675 1812 -20 Weight 87 kg Lab Results: Lab Results-Last 24 Hours 07/08/24 07/08/24 Range/Units 06:15 06:15 WBC 7.2 (4.23-9.07) x10^3/uL RBC 4.05 L (4.63-6.08) x10^6/uL Hgb 13.3 L (13.7-17.5) g/dL Hct 38.8 L (40.1-51.0) % MCV 95.8 H (79.0-92.2) fL MCH 32.8 H (25.7-32.2) pg MCHC 34.3 (32.3-36.5) g/dL RDW 12.1 (11.6-14.4) % Plt Count 135 L (163-337) x10^3/uL MPV 10.5 (9.4-12.4) fL Sodium 137 (135-145) mmol/L Potassium 4.0 (3.5-5.1) mmol/L Chloride 107 (98-107) mmol/L Carbon Dioxide 24 (22-30) mmol/L Anion Gap 10.0 (5-15) MEQ/L BUN 17 (9-20) mg/dL Creatinine 1.10 (0.66-1.25) mg/dL Estimated GFR 68.7 ML/MIN Glucose 85 (74-106) mg/dL Calcium 8.5 (8.4-10.2) mg/dL Total Bilirubin 0.60 (0.2-1.3) mg/dL AST 24 (17-59) U/L ALT 20 (0-50) U/L Alkaline Phosphatase 91 (38-126) U/L Serum Total Protein 6.1 L (6.3-8.2) g/dL Albumin 3.6 (3.5-5.0) g/dL Slides for Path Review YES Multi-Disciplinary Progress Notes: Multi-Disciplinary Progress Notes 07/07/24 14:35 Radiology Note by KEVIN DAMIAN TRANSTHORACIC ECHOCARDIOGRAM 07/06/2024: 1. Technically difficult study. 2. Mildly dilated atria. Ventricular chamber sizes are normal. 3. Severe concentric left ventricular hypertrophy. 4. Normal left ventricular systolic function without obvious wall motion abnormalities. Estimated EF 60-65%. 5. Unable to assess grade of diastolic dysfunction due to patient's underlying atrial fibrillation. 6. Normal right ventricular systolic function. 7. 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 Vmax 2.4 m/s, mean gradient 10 mmHg, DVI 0.35. 8. Doppler: Mild mitral regurgitation. 9. Mildly elevated PA systolic pressure. 10. Mildly elevated right atrial pressure. 11. No pericardial effusion. Kevin Damian MD Initialized on 07/07/24 14:35 - END OF NOTE Assessment/Plan (1) Atrial fibrillation Current Visit: Yes Status: Acute Code(s): I48.91 - UNSPECIFIED ATRIAL FIBRILLATION (2) Syncope and collapse Current Visit: Yes Status: Acute Code(s): R55 - SYNCOPE AND COLLAPSE (3) PARI (acute kidney injury) Current Visit: Yes Status: Acute Code(s): N17.9 - ACUTE KIDNEY FAILURE, UNSPECIFIED (4) Hypertensive chronic kidney disease with stage 1 through stage 4 chronic kidney disease, or unspecified chronic kidney disease Current Visit: Yes Status: Acute Code(s): I12.9 - HYPERTENSIVE CHRONIC KIDNEY DISEASE W STG 1-4/UNSP CHR KDNY (5) Metabolic acidosis Current Visit: Yes Status: Acute Code(s): E87.20 - ACIDOSIS, UNSPECIFIED (6) Scalp contusion Current Visit: Yes Status: Acute Code(s): S00.03XA - CONTUSION OF SCALP, INITIAL ENCOUNTER (7) Weakness Current Visit: Yes Status: Acute Assessment & Plan: (1) Atrial fibrillation Current Visit: Yes Status: Acute Assessment & Plan: - Tele - Seen on EKG on admission- reports a past hx of a-fib. - Started Eliquis 5mg BID- not on anticoagulation prior to admission - ECHO results pending - Cardiology consult pending - In NSR today. 2/2 - Stop Eliquis as risk outweigh the benefits as he keeps falling - Discussed pt case with cardiology- will need 30 day event monitor at d/c and F/u OP with cardiology- Need to exclude cardiac amyloidosis. Recommend first evaluating with a cardiac MRI with contrast Code(s): I48.91 - UNSPECIFIED ATRIAL FIBRILLATION (2) Syncope and collapse Current Visit: Yes Status: Acute Assessment & Plan: Multiple recent falls, 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 Follow up CTA head/neck 2. Will obtain MRI brain 3. PT eval 4. DVT/GI prophylaxis 5. Plans per neuro- note reviewed and agree with plan of care 6. ASA 7. MRI negative 8. Radiology results reviewed 9. CBC, CMP reviewed 10. ECHO results pending 11. Cardiology consult 2/2 - 2:2 combination of ETOH, dehydration, severe LVH, Meds- stopped Ambien - ECHO: 1. Technically difficult study. 2. Mildly dilated atria. Ventricular chamber sizes are normal. 3. Severe concentric left ventricular hypertrophy. 4. Normal left ventricular systolic function without obvious wall motion abnorm alities. Estimated EF 60-65%. 5. Unable to assess grade of diastolic dysfunction due to patient's underlying atrial fibrillation. 6. Normal right ventricular systolic function. 7. 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 Vmax 2.4 m/s, mean gradient 10 mmHg, DVI 0.35. 8. Doppler: Mild mitral regurgitation. 9. Mildly elevated PA systolic pressure. 10. Mildly elevated right atrial pressure. 11. No pericardial effusion. - MRI negative - Pt wants placement at [facility] for rehab- case management to assist - PT eval - CBC, CMP reviewed Code(s): R55 - SYNCOPE AND COLLAPSE (3) PARI (acute kidney injury) Current Visit: Yes Status: Acute Assessment & Plan: Likely from prerenal azotemia but should rule out rhabdo with recent falls 1. IVFs 2. Check CPK- 110 today 3. Check urine lytes, urine creatinine 4. Follow I/o's 5. Watch electrolytes, creatinine closely - Creat. 1.26- BL normal - Continue IVF 2/2 - resolved Code(s): N17.9 - ACUTE KIDNEY FAILURE, UNSPECIFIED (4) Hypertensive chronic kidney disease with stage 1 through stage 4 chronic kidney disease, or unspecified chronic kidney disease Current Visit: Yes Status: Acute Assessment & Plan: - BP stable - Continue home meds - CBC, CMP reviewed - Creat. 1.26- BL normal - Continue IVF 2/2 - PARI resolved - BP stable Code(s): I12.9 - HYPERTENSIVE CHRONIC KIDNEY DISEASE W STG 1-4/UNSP CHR KDNY (5) Metabolic acidosis Current Visit: Yes Status: Acute Assessment & Plan: Secondary to PARI/lactic acidosis 1. IVFs 2. Trend lactic acid 3. Monitor ABG prn 4. Repeat lactic acid on admission 1.1 5. Resolved today 2 Code(s): E87.20 - ACIDOSIS, UNSPECIFIED (6) Scalp contusion Current Visit: Yes Status: Acute Assessment & Plan: - small and scabbed- back of head Code(s): S00.03XA - CONTUSION OF SCALP, INITIAL ENCOUNTER (7) Weakness Current Visit: Yes Status: Acute Assessment & Plan: - PT eval and treat Code(s): R53.1 - WEAKNESS Code(s): R53.1 - WEAKNESS (8) Alcohol abuse Current Visit: Yes Status: Acute Assessment & Plan: - advised cessation - alcohol withdrawl protocol VTE: Eliquis PPI: Protonix Next of KIN: Code status: Full D/C plan: pending placement Code(s): F10.10 - ALCOHOL ABUSE, UNCOMPLICATED
[2024-07-08] MEDS ORDERED: PROVENTIL 2.5 MG/3 ML NEB IH ONE (15:35)
[2024-07-08] MEDS: PROVENTIL 2.5 MG/3 ML NEB IH PRN (16:00)
[2024-07-09 05:10] LABS: Hematocrit 38.2 % (40.1-51.0); Hemoglobin 13.6 g/dL (13.7-17.5); Mean Cell Volume 93.9 fL (79.0-92.2); Mean Corpuscular Hemoglobin 33.4 pg (25.7-32.2); Mean Corpuscular Hgb Concent. 35.6 g/dL (32.3-36.5); Mean Platelet Volume 10.5 fL (9.4-12.4); Platelet Count 143 x10^3/uL (163-337); Red Blood Count 4.07 x10^6/uL (4.63-6.08); Red Cell Distribution Width 11.9 % (11.6-14.4); White Blood Count 9.7 x10^3/uL (4.23-9.07)
[2024-07-09 05:24] LABS: ANION GAP 12.3 MEQ/L (5-15); Calcium 8.9 mg/dL (8.4-10.2); Creatinine 1 0.95 mg/dL (0.66-1.25); EST GLOMERULAR FILTRATION RATE 81.9 ML/MIN; Potassium 3.9 mmol/L (3.5-5.1); Total Protein 6.6 g/dL (6.3-8.2)
--- NOTE | 2024-07-09 05:35 | PCM.NOTE ---
Date and Time: 07/09/24 0531 Subjective Assessment: is a 79 year old male with a past medical history significant for hypertension, hyperlipidemia, PTSD, open heart surgery and coronary artery disease, with hx of fib in the past not on anticoagulation. He follows [facility] the [place]. He was brought to the hospital with recurrent falls over the past few months, most recently leading to L hip and rib pain from two separate falls. He does not recall what happens when he falls and there is no reported seizure activity. He was slightly hypotensive upon arrival and did initially respond to IVFs but has dropped his pressure again. 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 CT cervical spine with no acute findings. CT pelvis with no acute findings. CXR with no acute findings. CTA neck and head with no evidence of stenosis or aneurysm. No evidence of dissection. Brain MRI with small remote infarct left periventricular white matter. No acute intracranial abnormalities or evidence for evolving large vessel territorial stroke. Cardiology consulted with recommendations to continue Eliquis due to his risk of having a CVA off systemic anticoagulation is greater than the risk of a significant bleed on systemic anticoagulation. The importance of abstaining from alcohol was stressed with him being on anticoagulation. ELiquis 5 mg by mouth BID has already been started. Continue current dose of metoprolol. He will need a 30 day ambulatory monitor to document his atrial fib burden and to determine if any arrhythmias are associated with his falls/syncope. Okay to do 14 day bardy. Patient remains weak but no syncope since admission. Orthstasis is improved and Cr is improved. Further history reveals significant alcohol intake at home. Thiamine and Folic acid started. Ambien discontinued as he is on Trazodone and Zoloft. He also has prn diazepam ordered for possible alcohol withdrawal. Cardiology recommends cardiac MRI for severe LVH and 30 heart monitor. These will be arranged outpatient. Patient will discharge with PT OP. 07/09/24: Met with patient bedside. Endorses dysuria, nausea, and vomiting this morning. UA is clear. Patient requesting SNF placement for rehab due to weakness but does not meet criteria for medicare payment, would have to be private pay. Patient wishes to discharge home with PT. Ambulating well with walker. - Review of Systems Constitutional: No Symptoms Eyes: No Symptoms Ears, Nose, & Throat: No Symptoms Respiratory: No Symptoms Cardiac: No Symptoms Abdominal/Gastrointestinal: Nausea, Vomiting Genitourinary Symptoms: Dysuria Musculoskeletal: No Symptoms Skin: No Symptoms Neurological: No Symptoms Psychological: No Symptoms Endocrine: No Symptoms Hematologic/Lymphatic: No Symptoms Immunological/Allergic: No Symptoms Objective Exam General Appearance: no apparent distress Neurologic Exam: alert, oriented x 3, cooperative Skin Exam: normal color Eye Exam: PERRL Ears, Nose, Throat Exam: normal ENT inspection Neck Exam: normal inspection Respiratory Exam: normal breath sounds, lungs clear Cardiovascular Exam: regular rate/rhythm, normal heart sounds Gastrointestinal/Abdomen Exam: soft, normal bowel sounds Extremity Exam: normal inspection Back Exam: normal inspection Male Genitalia Exam: deferred Rectal Exam: deferred Objective Data Vital Signs: Vital Signs - 24 hr Temp Pulse Resp BP Pulse Ox 07/09/24 04:00 18 07/09/24 03:00 98.6 F 78 18 141/72 94 L 07/09/24 00:00 18 07/08/24 23:00 69 11 L 07/08/24 20:00 16 07/08/24 19:37 82 16 93 L 07/08/24 19:22 97.7 F 70 17 169/74 95 07/08/24 16:00 97.9 F 77 16 144/67 92 L 07/08/24 15:39 77 16 94 L 07/08/24 12:00 16 07/08/24 11:20 97.9 F 86 16 139/68 92 L 07/08/24 09:29 71 22 94 L 07/08/24 08:00 16 07/08/24 07:16 97.6 F 61 16 150/76 91 L Pain Assessment - Last Documented Pain Intensity 0 Intake and Output: Intake & Output 07/06/24 07/07/24 07/08/24 07/09/24 11:59 11:59 11:59 11:59 Intake Total 845 435 4946 1540 Output Total 1275 1600 950 Balance 360 -415 1812 590 Weight 87 kg Lab Results: Lab Results-Last 24 Hours 07/08/24 07/08/24 07/09/24 Range/Units 06:15 06:15 05:00 WBC 7.2 9.7 H (4.23-9.07) x10^3/uL RBC 4.05 L 4.07 L (4.63-6.08) x10^6/uL Hgb 13.3 L 13.6 L (13.7-17.5) g/dL Hct 38.8 L 38.2 L (40.1-51.0) % MCV 95.8 H 93.9 H (79.0-92.2) fL MCH 32.8 H 33.4 H (25.7-32.2) pg MCHC 34.3 35.6 (32.3-36.5) g/dL RDW 12.1 11.9 (11.6-14.4) % Plt Count 135 L 143 L (163-337) x10^3/uL MPV 10.5 10.5 (9.4-12.4) fL Sodium 137 (135-145) mmol/L Potassium 4.0 (3.5-5.1) mmol/L Chloride 107 (98-107) mmol/L Carbon Dioxide 24 (22-30) mmol/L Anion Gap 10.0 (5-15) MEQ/L BUN 17 (9-20) mg/dL Creatinine 1.10 (0.66-1.25) mg/dL Estimated GFR 68.7 ML/MIN Glucose 85 (74-106) mg/dL Calcium 8.5 (8.4-10.2) mg/dL Total Bilirubin 0.60 (0.2-1.3) mg/dL AST 24 (17-59) U/L ALT 20 (0-50) U/L Alkaline Phosphatase 91 (38-126) U/L Serum Total Protein 6.1 L (6.3-8.2) g/dL Albumin 3.6 (3.5-5.0) g/dL Slides for Path Review YES 07/09/24 Range/Units 05:00 WBC (4.23-9.07) x10^3/uL RBC (4.63-6.08) x10^6/uL Hgb (13.7-17.5) g/dL Hct (40.1-51.0) % MCV (79.0-92.2) fL MCH (25.7-32.2) pg MCHC (32.3-36.5) g/dL RDW (11.6-14.4) % Plt Count (163-337) x10^3/uL MPV (9.4-12.4) fL Sodium 135 (135-145) mmol/L Potassium 3.9 (3.5-5.1) mmol/L Chloride 101 (98-107) mmol/L Carbon Dioxide 25 (22-30) mmol/L Anion Gap 12.3 (5-15) MEQ/L BUN 13 (9-20) mg/dL Creatinine 0.95 (0.66-1.25) mg/dL Estimated GFR 81.9 ML/MIN Glucose 100 (74-106) mg/dL Calcium 8.9 (8.4-10.2) mg/dL Total Bilirubin 1.00 (0.2-1.3) mg/dL AST 26 (17-59) U/L ALT 18 (0-50) U/L Alkaline Phosphatase 90 (38-126) U/L Serum Total Protein 6.6 (6.3-8.2) g/dL Albumin 4.0 (3.5-5.0) g/dL Slides for Path Review Assessment/Plan (1) Syncope and collapse Current Visit: Yes Status: Acute Assessment & Plan: Multiple recent falls, CT head suggests R internal capsule infarct -CT head demonstrated possible subacute infarct of R internal capsule.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 -CT cervical spine and pelvis reviewed with no acute findings. - CXR with no acute findings. -CTA neck and head with no evidence of stenosis or aneurysm. No evidence of dissection. -Brain MRI with small remote infarct left periventricular white matter. No acute intracranial abnormalities or evidence for evolving large vessel territorial stroke. - PT eval - Plans per neuro- note reviewed and agree with plan of care -start ASA/Statin - CBC, CMP reviewed - ECHO results reviewed as stated above. -Cardiology consulted - note reviewed -- 2:2 combination of ETOH, dehydration, severe LVH, Meds- stopped Ambien - Pt requesting placement at [facility] for rehab- per case management does not meet criteria for medicare would have to be private pay - pt wishes to dc home with OP PT Code(s): R55 - SYNCOPE AND COLLAPSE (2) PARI (acute kidney injury) Current Visit: Yes Status: Acute Assessment & Plan: -CPK reviewed and now WNL -Monitor renal/lytes -Avoid nephrotoxic agents -resolved Code(s): N17.9 - ACUTE KIDNEY FAILURE, UNSPECIFIED (3) Alcohol abuse Current Visit: Yes Status: Acute Assessment & Plan: - advised cessation - [facility] protocol Code(s): F10.10 - ALCOHOL ABUSE, UNCOMPLICATED (4) Atrial fibrillation Current Visit: Yes Status: Acute Assessment & Plan: - Tele - Seen on EKG on admission- reports a past hx of a-fib. - not on anticoagulation prior to admission- cardiology recommends starting anticoagulation due to his risk of having a CVA off systemic anticoagulation is greater than the risk of a significant bleed on systemic anticoagulation. The importance of abstaining from alcohol was stressed with him being on anticoagulation. ELiquis 5 mg by mouth BID has already been started. -Continue current dose of metoprolol. TRANSTHORACIC ECHOCARDIOGRAM 07/06/2024: 1. Technically difficult study. 2. Mildly dilated atria. Ventricular chamber sizes are normal. 3. Severe concentric left ventricular hypertrophy. 4. Normal left ventricular systolic function without obvious wall motion abnormalities. Estimated EF 60-65%. 5. Unable to assess grade of diastolic dysfunction due to patient's underlying atrial fibrillation. 6. Normal right ventricular systolic function. 7. 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 Vmax 2.4 m/s, mean gradient 10 mmHg, DVI 0.35. 8. Doppler: Mild mitral regurgitation. 9. Mildly elevated PA systolic pressure. 10. Mildly elevated right atrial pressure. 11. No pericardial effusion. - Cardiology consult note reviewed -30 day event monitor (okay per discussion with cardiology for [address] [facility]) at d/c and F/u OP with cardiology- Need to exclude cardiac amyloidosis. Recommend first evaluating with a cardiac MRI with contrast -can be ordered as OP Code(s): I48.91 - UNSPECIFIED ATRIAL FIBRILLATION (5) Hypertensive chronic kidney disease with stage 1 through stage 4 chronic kidney disease, or unspecified chronic kidney disease Current Visit: Yes Status: Acute Assessment & Plan: - Continue home meds - CBC, CMP reviewed Code(s): I12.9 - HYPERTENSIVE CHRONIC KIDNEY DISEASE W STG 1-4/UNSP CHR KDNY (6) Metabolic acidosis Current Visit: Yes Status: Acute Assessment & Plan: Secondary to PARI/lactic acidosis -resolved Code(s): E87.20 - ACIDOSIS, UNSPECIFIED (7) Scalp contusion Current Visit: Yes Status: Acute Assessment & Plan: - small and scabbed- back of head -CT head reviewed as stated above Code(s): S00.03XA - CONTUSION OF SCALP, INITIAL ENCOUNTER (8) Weakness Current Visit: Yes Status: Acute Assessment & Plan: - PT eval and treat Code(s): R53.1 - WEAKNESS (9) Recurrent falls Current Visit: Yes Status: Acute Assessment & Plan: -see plan above/syncope/weakness VTE: SCD PPI: Protonix Next of KIN: Code status: Full D/C plan: pending placement Code(s): R29.6 - REPEATED FALLS (10) Dysuria Current Visit: Yes Status: Acute Assessment & Plan: -UA clear x 2 Code(s): R30.0 - DYSURIA
[2024-07-09] MEDS ORDERED: Zofran 4 MG/2 ML VIAL ONE (09:53)
[2024-07-09] MEDS: Zofran 4 MG/2 ML VIAL IV PRN (10:00)
[2024-07-09 10:16] LABS: Appearance Clear (Clear); Bacteria None Seen /HPF (None Seen); Bilirubin Negative (Negative); Blood Negative (Negative); Epithelial Cells None Seen /HPF (None Seen); Glucose, Urine Negative (Negative); Hyaline Casts NONE SEEN /LPF (0-2); Ketones Negative (Negative); Leukocyte Esterase Negative (Negative); Nitrite Negative (Negative); Protein,Urine Dip Negative (Negative); RBC 0-2 /HPF (0-5); Specific Gravity <=1.005 (1.005-1.030); WBC 0-2 /HPF (0-5)
[2024-07-09] MEDS: TYLENOL 325 MG PO PRN (10:38)
[2024-07-09] MEDS: ELIQUIS 2.5 MG TABLET PO SCH (21:29)
[2024-07-10] MEDS: TYLENOL 325 MG PO PRN (03:52)
--- NOTE | 2024-07-10 05:34 | PCM.NOTE ---
Date and Time: 07/10/24 0533 Subjective Assessment: is a 79 year old male with a past medical history significant for hypertension, hyperlipidemia, PTSD, open heart surgery and coronary artery disease, with hx of fib in the past not on anticoagulation. He follows [facility] at the [place]. He was brought to the hospital with recurrent falls over the past few months, most recently leading to L hip and rib pain from two separate falls. He does not recall what happens when he falls and there is no reported seizure activity. He was slightly hypotensive upon arrival and did initially respond to IVFs but has dropped his pressure again. 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 CT cervical spine with no acute findings. CT pelvis with no acute findings. CXR with no acute findings. CTA neck and head with no evidence of stenosis or aneurysm. No evidence of dissection. Brain MRI with small remote infarct left periventricular white matter. No acute intracranial abnormalities or evidence for evolving large vessel territorial stroke. Cardiology consulted with recommendations to continue Eliquis due to his risk of having a CVA off systemic anticoagulation is greater than the risk of a significant bleed on systemic anticoagulation. The importance of abstaining from alcohol was stressed with him being on anticoagulation. ELiquis 5 mg by mouth BID has already been started. Continue current dose of metoprolol. He will need a 30 day ambulatory monitor to document his atrial fib burden and to determine if any arrhythmias are associated with his falls/syncope. Okay to do 14 day bardy. Patient remains weak but no syncope since admission. Orthstasis is improved and Cr is improved. Further history reveals significant alcohol intake at home. Thiamine and Folic acid started. Ambien discontinued as he is on Trazodone and Zoloft. He also has prn diazepam ordered for possible alcohol withdrawal. Cardiology recommends cardiac MRI for severe LVH and 30 heart monitor. These will be arranged outpatient. Patient will discharge with PT OP. 07/09/24: Met with patient bedside. Endorses dysuria, nausea, and vomiting this morning. UA is clear. Patient requesting SNF placement for rehab due to weakness but does not meet criteria for medicare payment, would have to be private pay. Patient wishes to discharge home with PT. Ambulating well with walker. Objective Data Vital Signs: Vital Signs - 24 hr Temp Pulse Resp BP Pulse Ox 07/10/24 04:00 100.5 F 73 23 158/74 91 L 07/10/24 00:00 99.4 F 76 22 133/76 90 L 07/09/24 20:00 98.6 F 70 19 182/84 93 L 07/09/24 16:00 24 07/09/24 15:00 97.5 F 74 18 142/67 91 L 07/09/24 12:00 18 07/09/24 11:00 97.7 F 78 18 131/93 91 L 07/09/24 07:41 16 07/09/24 07:21 80 16 94 L 07/09/24 06:56 98.2 F 82 17 146/74 91 L Pain Assessment - Last Documented Pain Intensity 0 Pain Scale Used 0-10 Pain Scale Intake and Output: Intake & Output 07/07/24 07/08/24 07/09/24 07/10/24 11:59 11:59 11:59 11:59 Intake Total 600 3412 1660 240 Output Total 1275 1600 1250 250 Balance -675 1812 410 -10 Lab Results: Lab Results-Last 24 Hours 07/06/24 07/09/24 Range/Units 06:21 10:08 Urine Color Yellow (Yellow) Urine Appearance Clear (Clear) Urine pH 7.0 (4.6-8.0) Ur Specific [place] <=1.005 (1.005-1.030) Urine Protein Negative (Negative) Urine Glucose (UA) Negative (Negative) mg/dL Urine Ketones Negative (Negative) Urine Blood Negative (Negative) Urine Nitrite Negative (Negative) Urine Bilirubin Negative (Negative) Urine Urobilinogen 1.0 A (0.2) mg/dL Ur Leukocyte Esterase Negative (Negative) U Hyaline Cast (Auto) NONE SEEN (0-2) /LPF Urine Microscopic RBC 0-2 (0-5) /HPF Urine Microscopic WBC 0-2 (0-5) /HPF Ur Epithelial Cells None Seen (None Seen) /HPF Urine Bacteria None Seen (None Seen) /HPF Urine Culture Reflexed NO (NO) Urine Osmolality 200 (.) mOsmol/kg Multi-Disciplinary Progress Notes: Multi-Disciplinary Progress Notes 07/09/24 13:27 Case Management Note by Blanche Menjivar RX FOR ELIQUIS SENT TO [place] [facility] ELECTRONICALLY S/W RAQUEL AT [facility]- SHE NOTED RX IN SYSTEM AND STATED SUPPORTING CLINICAL DOCUMENTATION WILL NEED FAXED TO [phone] SO IT CAN BE APPROVED FOR DISPENSING BY THE [facility]. 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 AFTER REVIEW- PATIENT DOES NOT MEET CRITERIA FOR MEDICARE TO PAY FOR REHAB. A REHAB STAY WOULD NEED TO BE PRIVATE PAY. PATIENT AND SPOUSE NOT INTERESTED IN THIS. THEY ARE MAINLY CONCERNED ABOUT STAIRS GETTING IN AND OUT OF HOME (HAS RAILS). NOTIFIED MARIANO WITH PHYSICAL THERAPY SO THEY COULD WORK ON THIS IF INDICATED. PATIENT AND FAMILY PLAN FOR PATIENT TO RETURN HOME AT TIME OF DC. WALKER AT BEDSIDE. ROLLATOR ON ORDER BY [place]. PATIENT AND FAMILY INTERESTED IN [facility] AT [facility] (AT THE PHARMACY). THIS WILL NEED SET UP BY [place]. WILL SEND DOCUMENTATION REQUESTING THIS. PATIENT AND WILL LIKELY NEED TO CONTACT THE [place] TO GET THIS SET UP. 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 -CT cervical spine and pelvis reviewed with no acute findings. - CXR with no acute findings. -CTA neck and head with no evidence of stenosis or aneurysm. No evidence of dissection. -Brain MRI with small remote infarct left periventricular white matter. No acute intracranial abnormalities or evidence for evolving large vessel territorial stroke. - PT eval - Plans per neuro- note reviewed and agree with plan of care -start ASA/Statin - CBC, CMP reviewed - ECHO results reviewed as stated above. -Cardiology consulted - note reviewed -- 2:2 combination of ETOH, dehydration, severe LVH, Meds- stopped Ambien - Pt requesting placement at [facility] for rehab- per case management does not meet criteria for medicare would have to be private pay - pt wishes to dc home with OP PT Code(s): R55 - SYNCOPE AND COLLAPSE (2) PARI (acute kidney injury) Current Visit: Yes Status: Acute Assessment & Plan: -CPK reviewed and now WNL -Monitor renal/lytes -Avoid nephrotoxic agents -resolved Code(s): N17.9 - ACUTE KIDNEY FAILURE, UNSPECIFIED (3) Alcohol abuse Current Visit: Yes Status: Acute Assessment & Plan: - advised cessation - [facility] protocol Code(s): F10.10 - ALCOHOL ABUSE, UNCOMPLICATED (4) Atrial fibrillation Current Visit: Yes Status: Acute Assessment & Plan: - Tele - Seen on EKG on admission- reports a past hx of a-fib. - not on anticoagulation prior to admission- cardiology recommends starting anticoagulation due to his risk of having a CVA off systemic anticoagulation is greater than the risk of a significant bleed on systemic anticoagulation. The importance of abstaining from alcohol was stressed with him being on anticoagulation. ELiquis 5 mg by mouth BID has already been started. -Continue current dose of metoprolol. TRANSTHORACIC ECHOCARDIOGRAM 07/06/2024: 1. Technically difficult study. 2. Mildly dilated atria. Ventricular chamber sizes are normal. 3. Severe concentric left ventricular hypertrophy. 4. Normal left ventricular systolic function without obvious wall motion abnormalities. Estimated EF 60-65%. 5. Unable to assess grade of diastolic dysfunction due to patient's underlying atrial fibrillation. 6. Normal right ventricular systolic function. 7. 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 Vmax 2.4 m/s, mean gradient 10 mmHg, DVI 0.35. 8. Doppler: Mild mitral regurgitation. 9. Mildly elevated PA systolic pressure. 10. Mildly elevated right atrial pressure. 11. No pericardial effusion. - Cardiology consult note reviewed -30 day event monitor (okay per discussion with cardiology for 14 day [facility]) at d/c and F/u OP with cardiology- Need to exclude cardiac amyloidosis. Recommend first evaluating with a cardiac MRI with contrast -can be ordered as OP Code(s): I48.91 - UNSPECIFIED ATRIAL FIBRILLATION (5) Hypertensive chronic kidney disease with stage 1 through stage 4 chronic kidney disease, or unspecified chronic kidney disease Current Visit: Yes Status: Acute Assessment & Plan: - Continue home meds - CBC, CMP reviewed Code(s): I12.9 - HYPERTENSIVE CHRONIC KIDNEY DISEASE W STG 1-4/UNSP CHR KDNY (6) Metabolic acidosis Current Visit: Yes Status: Acute Assessment & Plan: Secondary to PARI/lactic acidosis -resolved Code(s): E87.20 - ACIDOSIS, UNSPECIFIED (7) Scalp contusion Current Visit: Yes Status: Acute Assessment & Plan: - small and scabbed- back of head -CT head reviewed as stated above Code(s): S00.03XA - CONTUSION OF SCALP, INITIAL ENCOUNTER (8) Weakness Current Visit: Yes Status: Acute Assessment & Plan: - PT eval and treat Code(s): R53.1 - WEAKNESS (9) Recurrent falls Current Visit: Yes Status: Acute Assessment & Plan: -see plan above/syncope/weakness VTE: SCD PPI: Protonix Next of KIN: Code status: Full D/C plan: pending placement Code(s): R55 - SYNCOPE AND COLLAPSE (2) PARI (acute kidney injury) Current Visit: Yes Status: Acute Code(s): N17.9 - ACUTE KIDNEY FAILURE, UNSPECIFIED (3) Alcohol abuse Current Visit: Yes Status: Acute Code(s): F10.10 - ALCOHOL ABUSE, UNCOMPLICATED (4) Atrial fibrillation Current Visit: Yes Status: Acute Code(s): I48.91 - UNSPECIFIED ATRIAL FIBRILLATION (5) Hypertensive chronic kidney disease with stage 1 through stage 4 chronic kidney disease, or unspecified chronic kidney disease Current Visit: Yes Status: Acute Code(s): I12.9 - HYPERTENSIVE CHRONIC KIDNEY DISEASE W STG 1-4/UNSP CHR KDNY (6) Metabolic acidosis Current Visit: Yes Status: Acute Code(s): E87.20 - ACIDOSIS, UNSPECIFIED (7) Scalp contusion Current Visit: Yes Status: Acute Code(s): S00.03XA - CONTUSION OF SCALP, INITIAL ENCOUNTER (8) Weakness Current Visit: Yes Status: Acute Code(s): R53.1 - WEAKNESS (9) Recurrent falls Current Visit: Yes Status: Acute Code(s): R29.6 - REPEATED FALLS (10) Dysuria Current Visit: Yes Status: Acute Code(s): R30.0 - DYSURIA
[2024-07-10 12:46] VITALS: BP 141/71; PULSE 76; TEMP 97.9; O2SAT 93
--- NOTE | 2024-07-10 14:34 | PCM.DS ---
Discharge Summary Date of Admission: 07/06/24 07:35 Date of Discharge: 07/10/24 Admitting Physician: JOSUE JORDAN MD Consults: Consults on Case 07/06/24 16:02 Consult Cardiology ROUTINE Primary Care Provider: [facility] Allergies Allergies Penicillins Allergy (Verified 07/06/24 03:53) Sulfa (Sulfonamide Antibiotics) Allergy (Verified 07/06/24 03:53) Hospital Summary - Hospital Course Hospital Course: is a 79 year old male with a past medical history significant for hyper tension, hyperlipidemia, PTSD, open heart surgery and coronary artery disease, with hx of fib in the past not on anticoagulation. [facility]. He was brought to the hospital with recurrent falls over the past few months, most recently leading to L hip and rib pain from two separate falls. He does not recall what happens when he falls and there is no reported seizure activity. He was slightly hypotensive upon arrival and did initially respond to IVFs but has dropped his pressure again. 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 CT cervical spine with no acute findings. CT pelvis with no acute findings. CXR with no acute findings. CTA neck and head with no evidence of stenosis or aneurysm. No evidence of dissection. Brain MRI with small remote infarct left periventricular white matter. No acute intracranial abnormalities or evidence for evolving large vessel territorial stroke. Cardiology consulted with recommendations to continue Eliquis due to his risk of having a CVA off systemic anticoagulation is greater than the risk of a significant bleed on systemic anticoagulation. The importance of abstaining from alcohol was stressed with him being on anticoagulation. ELiquis 5 mg by mouth BID has already been started. This has been sent to pharmacy and is affordable for patient. Continue current dose of metoprolol. He will need a 30 day ambulatory monitor to document his atrial fib burden and to determine if any arrhythmias are associated with his falls/syncope. Okay to do 14 day bardy per cardiology. Patient remains weak but no syncope since admission. Orthstasis is improved and Cr is improved. Further history reveals significant alcohol intake at home. Thiamine and Folic acid started. Ambien discontinued as he is on Trazodone and Zoloft. He also has prn diazepam ordered for possible alcohol withdrawal. Cardiology recommends cardiac MRI for severe LVH and 30 heart monitor. These will be arranged outpatient. Patient will discharge with PT OP. 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 -CT cervical spine and pelvis reviewed with no acute findings. - CXR with no acute findings. -CTA neck and head with no evidence of stenosis or aneurysm. No evidence of dissection. -Brain MRI with small remote infarct left periventricular white matter. No acute intracranial abnormalities or evidence for evolving large vessel territorial stroke. - PT eval - Plans per neuro- note reviewed and agree with plan of care -start ASA/Statin - CBC, CMP reviewed - ECHO results reviewed as stated above. -Cardiology consulted - note reviewed -- 2:2 combination of ETOH, dehydration, severe LVH, Meds- stopped Ambien - Pt requesting placement at [place] for rehab- per case management does not meet criteria for medicare would have to be private pay - pt wishes to dc home with OP PT Code(s): R55 - SYNCOPE AND COLLAPSE (2) PARI (acute kidney injury) Current Visit: Yes Status: Acute Assessment & Plan: -CPK reviewed and now WNL -Monitor renal/lytes -Avoid nephrotoxic agents -resolved Code(s): N17.9 - ACUTE KIDNEY FAILURE, UNSPECIFIED (3) Alcohol abuse Current Visit: Yes Status: Acute Assessment & Plan: - advised cessation - [facility] protocol Code(s): F10.10 - ALCOHOL ABUSE, UNCOMPLICATED (4) Atrial fibrillation Current Visit: Yes Status: Acute Assessment & Plan: - Tele - Seen on EKG on admission- reports a past hx of a-fib. - not on anticoagulation prior to admission- cardiology recommends starting anticoagulation due to his risk of having a CVA off systemic anticoagulation is greater than the risk of a significant bleed on systemic anticoagulation. The importance of abstaining from alcohol was stressed with him being on anticoagulation. ELiquis 5 mg by mouth BID has already been started. -Continue current dose of metoprolol. TRANSTHORACIC ECHOCARDIOGRAM 07/06/2024: 1. Technically difficult study. 2. Mildly dilated atria. Ventricular chamber sizes are normal. 3. Severe concentric left ventricular hypertrophy. 4. Normal left ventricular systolic function without obvious wall motion abnormalities. Estimated EF 60-65%. 5. Unable to assess grade of diastolic dysfunction due to patient's underlying atrial fibrillation. 6. Normal right ventricular systolic function. 7. 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 Vmax 2.4 m/s, mean gradient 10 mmHg, DVI 0.35. 8. Doppler: Mild mitral regurgitation. 9. Mildly elevated PA systolic pressure. 10. Mildly elevated right atrial pressure. 11. No pericardial effusion. - Cardiology consult note reviewed -30 day event monitor (okay per discussion with cardiology for 14 day Radha) at d/c and F/u OP with cardiology- Need to exclude cardiac amyloidosis. Recommend first evaluating with a cardiac MRI with contrast -can be ordered as OP Code(s): I48.91 - UNSPECIFIED ATRIAL FIBRILLATION (5) Hypertensive chronic kidney disease with stage 1 through stage 4 chronic kidney disease, or unspecified chronic kidney disease Current Visit: Yes Status: Acute Assessment & Plan: - Continue home meds - CBC, CMP reviewed Code(s): I12.9 - HYPERTENSIVE CHRONIC KIDNEY DISEASE W STG 1-4/UNSP CHR KDNY (6) Metabolic acidosis Current Visit: Yes Status: Acute Assessment & Plan: Secondary to PARI/lactic acidosis -resolved Code(s): E87.20 - ACIDOSIS, UNSPECIFIED (7) Scalp contusion Current Visit: Yes Status: Acute Assessment & Plan: - small and scabbed- back of head -CT head reviewed as stated above Code(s): S00.03XA - CONTUSION OF SCALP, INITIAL ENCOUNTER (8) Weakness Current Visit: Yes Status: Acute Assessment & Plan: - PT eval and treat Code(s): R53.1 - WEAKNESS (9) Recurrent falls Current Visit: Yes Status: Acute Assessment & Plan: -see plan above/syncope/weakness I spent 35 minutes [id number] with the patient on the day of discharge performing discharge exam, discussing hospital stay and discharge instructions with patient and caregivers, preparation of discharge records, prescriptions & referral forms and addressing any questions/concerns the patient had as documented above. - Vitals & Intake/Output Vital Signs: Vital Signs Temperature 97.9 F 07/10/24 12:00 Pulse Rate 76 07/10/24 12:00 Respiratory Rate 16 07/10/24 12:00 Blood Pressure 141/71 07/10/24 12:00 O2 Sat by Pulse Oximetry 93 L 07/10/24 12:00 Intake & Output: Intake & Output 07/08/24 07/09/24 07/10/24 07/11/24 11:59 11:59 11:59 11:59 Intake Total 3412 1660 720 Output Total 1600 1250 700 Balance 1812 410 20 - Lab Result Diagrams: 07/09/24 05:00 07/09/24 05:00 - Procedures and Test Procedures and Tests throughout Hospitalization: Therapy Orders & Screens 07/06/24 06:20 PT Eval & Treat ( Order) ONCE Reason for Eval:: falls Diagnosis: falls 07/06/24 09:21 BiPap/CPAP ROUTINE Comment: Diagnosis: falls 07/08/24 09:14 Respiratory Therapy Assessment DAILY Comment: Diagnosis: Recurrent falls, syncope and collapse, PARI, scalp contusion, hip c ontusion, 07/10/24 12:00 [facility] 7-14 Day Holter ONCE Comment: Diagnosis: Recurrent falls, syncope and collapse, PARI, scalp contusion, hip contusion, Discharge Exam General Appearance: no apparent distress Neurologic Exam: alert, oriented x 3, cooperative Eye Exam: PERRL Ears, Nose, Throat Exam: normal ENT inspection Neck Exam: normal inspection Respiratory Exam: normal breath sounds, lungs clear Cardiovascular Exam: regular rate/rhythm, normal heart sounds Gastrointestinal/Abdomen Exam: soft, normal bowel sounds Male Genitalia Exam: deferred Rectal Exam: deferred Back Exam: normal inspection Extremity Exam: normal inspection Skin Exam: normal color Final Diagnosis/Problem List - Final Discharge Diagnosis/Problem (1) Syncope and collapse Current Visit: Yes Status: Resolved Code(s): R55 - SYNCOPE AND COLLAPSE (2) PARI (acute kidney injury) Current Visit: Yes Status: Resolved Code(s): N17.9 - ACUTE KIDNEY FAILURE, UNSPECIFIED (3) Alcohol abuse Current Visit: Yes Status: Chronic Code(s): F10.10 - ALCOHOL ABUSE, UNCOMP LICATED (4) Atrial fibrillation Current Visit: Yes Status: Chronic Code(s): I48.91 - UNSPECIFIED ATRIAL FIBRILLATION (5) Hypertensive chronic kidney disease with stage 1 through stage 4 chronic kidney disease, or unspecified chronic kidney disease Current Visit: Yes Status: Chronic Code(s): I12.9 - HYPERTENSIVE CHRONIC KIDNEY DISEASE W STG 1-4/UNSP CHR KDNY (6) Metabolic acidosis Current Visit: Yes Status: Resolved Code(s): E87.20 - ACIDOSIS, UNSPECIFIED (7) Scalp contusion Current Visit: Yes Status: Acute Code(s): S00.03XA - CONTUSION OF SCALP, INITIAL ENCOUNTER (8) Weakness Current Visit: Yes Status: Chronic Code(s): R53.1 - WEAKNESS (9) Recurrent falls Current Visit: Yes Status: Chronic Code(s): R29.6 - REPEATED FALLS (10) Dysuria Current Visit: Yes Status: Ruled-out Code(s): R30.0 - DYSURIA - Discharge Discharge Date: 07/10/24 (Physical therapy) Disposition: Home, Self-Care Condition: Stable Prescriptions: New Apixaban [Eliquis] 5 mg PO BID 30 Days #60 tablet Apixaban [Eliquis 2.5 mg Tablet] 5 mg PO BID tablet Folic Acid 1 mg [Folate 1 mg] 1 mg PO DAILY 30 Days #30 tablet Multivitamins,Therapeutic Tab* [Theragran Multivitamin] 1 tab PO QAM 30 Days #30 tablet Thiamine HCl 100 mg [Vitamin B-1 100 mg] 100 mg PO DAILY 30 Days #30 tablet Continue Metoprolol Tartrate 25 mg [Lopressor 25MG Tab] 12.5 mg PO BID Aspirin 81 gm Chew [Baby Aspirin 81 mg Chew] 1 tab PO DAILY Trazodone HCl 50 mg [Desyrel 50 mg] 75 mg PO HS Rosuvastatin Calcium 40 mg PO DAILY Prazosin HCl 2 mg PO HS Sertraline HCl 100 mg PO DAILY Cyanocobalamin (Vitamin B-12) [Vitamin B12] 2,500 mcg PO DAILY Buspirone HCl 5 mg [Buspar 5 mg] 5 mg PO BID Hydroxyzine HCl 25 mg [Atarax 25 mg] 10 mg PO DAILY Discontinued Eszopiclone [Lunesta] 2 mg PO HS Additional Instructions: [facility] AND ROLLATOR ( CLINICAL FAXED WITH THESE REQUESTED ON 07/10/24, FAXED TO [phone]) [facility]. Follow up with: [facility] [Primary Care Provider] - 07/17/24 1:30 pm
[2024-07-10 16:38] VITALS: RESP 23
== END 2024-07-10 16:30 | disposition home or self-care (01) ==
LOC: ED 02:43 → MED SURG 07:35
PROVIDERS: ADMIT Internal Medicine; ATTEND Internal Medicine
DX: R55 Syncope and collapse (principal); E86.9 Volume depletion, unspecified; I48.0 Paroxysmal atrial fibrillation; I42.2 Other hypertrophic cardiomyopathy; I25.810 Atherosclerosis of coronary artery bypass graft(s) without angina pectoris; N17.9 Acute kidney failure, unspecified; E78.5 Hyperlipidemia, unspecified; F10.10 Alcohol abuse, uncomplicated; I12.9 Hypertensive chronic kidney disease with stage 1 through stage 4 chronic kidney disease, or unspecified chronic kidney disease; N18.9 Chronic kidney disease, unspecified; E87.20 Acidosis, unspecified; S00.03XA Contusion of scalp, initial encounter; R53.1 Weakness; R30.0 Dysuria; Z91.81 History of falling; Z79.899 Other long term (current) drug therapy; Z85.51 Personal history of malignant neoplasm of bladder
CPT/HCPCS: 36415; 70450; 70496; 70498; 70553; 71045; 72125; 72192; 80053; 81001; 82550; 82570; 83605; 83735; 83880; 83935; 84300; 84484; 85025; 85027; 93005; 93041; 93246; 93268; 93306; 94640; 94660; 94760; 96374; 99285; J2405; J7609; Q3014; A9270-GY; G0378